=== PATIENT | male | born 1930 | race African-American/Black ===

== ENCOUNTER 2017-07-11 15:39 | Inpatient (IN) | payer OTHER ==
[2017-07-11 16:46] LABS: Absolute Lymphocytes (CBC) 0.5 K/uL (0.7-4.9); Absolute Monocytes 1.8 K/uL (0.1-1.3); Basophils % 0.4 % (0-1.3); Eosinophils % 1.4 % (0-4.4); Hematocrit 37.6 % (39.6-49.0); Lymphocytes % 4.2 % (15.3-44.8); MPV 8.2 fL (7.6-11.3); Monocytes % 14.7 % (3.3-12.3); RBC Red Blood Cell Count 4.18 M/uL (4.33-5.43)
[2017-07-11 16:47] LABS: Protime INR 1.11
[2017-07-11 17:04] LABS: Bicarbonate 28 mEq/L (21-31); Glucose Level 135 mg/dL (65-120); Potassium 3.6 mEq/L (3.6-5.0); Sodium Level 137 mEq/L (135-145)
--- NOTE | 2017-07-11 17:05 | RAD REPORT ---
EXAM DESCRIPTION: RAD - Chest Single View - 07/11/2017 4:56 pm CLINICAL HISTORY: Shortness of breath COMPARISON: None. FINDINGS: Portable technique limits examination quality. Mild to moderate pulmonary edema. The heart is mildly to moderately enlarged in size with a dual lead pacer device present. Right-sided venous catheter is noted. No displaced fractures. IMPRESSION: Mild to moderate CHF versus volume overload.
[2017-07-11 17:09] LABS: AST/SGOT 24 IU/L (10-42); Albumin 4.1 g/dL (3.2-5.5); Alkaline Phosphatase 62 IU/L (42-121); BUN Blood Urea Nitrogen 16 mg/dL (6-20); Bilirubin Direct 0.2 mg/dL (0-0.2); Bilirubin Total 0.4 mg/dL (0.3-1.2); Creatine Phosphokinase 63 IU/L (22-269); Glomerular Filtration Rate 20 mL/min (=/>90); Protein, Total 8.4 g/dL (6.0-8.3)
[2017-07-11 17:12] LABS: CKMB Creatine Kinase MB 1.9 ng/ml (0.3-4.0)
[2017-07-11 17:18] LABS: ALT/SGPT < 5 IU/L (10-60)
[2017-07-11] MEDS ORDERED: ONDANSETRON 4 MG/2 ML VIAL ONE (18:39)
[2017-07-11 18:44] LABS: Arterial Blood Carboxyhemoglob 0.8 % (0-1.5); Blood O2 Saturation 87.2 % (92-98.5)
--- NOTE | 2017-07-11 18:47 | ER ---
Nurse's Notes [facility] Name: Rik Mauro Age: 87 yrs Sex: Male : 1930 Arrival Date: 07/11/2017 Time: 15:45 Bed 3 Private MD: Diagnosis: Pulmonary edema;End stage renal disease Presentation: 07/11 15:45 Presenting complaint: EMS states: pt coming from dialysis, hasn't had in several days, kt1 unknown number. C/O SOB while at dialysis and copious amounts of diarrhea. Pt denies previous illness, no pain. Transition of care: dialysis center. Onset of symptoms was July 11, 2017. Note EMS states pt was 68% on RA, was up to 94% on 15L neb mask, A\T\A received. Care prior to arrival: Oxygen administered. via a nebulizer mask. 15:45 Method Of Arrival: EMS: [facility] kt1 15:45 Acuity: CHAVA 2 kt1 Triage Assessment: 15:45 General: Appears uncomfortable, unkempt, Behavior is calm, cooperative. Pain: Denies kt1 pain. Neuro: Level of Consciousness is awake, alert, obeys commands, Oriented to person, place, time, situation. Cardiovascular: Denies chest pain, Heart tones S1 S2. Respiratory: Reports shortness of breath labored breathing Airway is patent Respiratory effort is even, labored, Respiratory pattern is regular, symmetrical, tachypnea Breath sounds with rhonchi bilaterally. Onset: The symptoms/episode began/occurred today, the patient has moderate shortness of breath. GI: Abdomen is round non-distended, Bowel sounds hyperactive in right upper quadrant, left upper quadrant, right lower quadrant and left lower quadrant Reports diarrhea. Derm: Skin is fragile, is thin, with poor turgor Skin is dry, Skin is normal, black, Skin temperature is warm. Historical: - Allergies: 16:41 No Known Allergies; kt1 - Home Meds: 17:17 amlodipine 10 mg tab 1 tab once daily [Active]; magnesium oxide 400 mg Oral cap kt1 [Active]; carvedilol 25 mg oral tab 1 tab 2 times per day [Active]; citalopram 10 mg tab 1 tab once daily [Active]; metolazone 5 mg oral tab 1 tab once daily [Active]; - PMHx: 17:17 Anemia; Bradycardia; Prostate cancer 1990; Cataracts; CHF; DVT; Edema; Hypertension; kt1 Gout; 17:23 ESRD; kt1 - PSHx: 17:17 Dialysis cath R chest; kt1 - Social history:: The patient lives in a shelter. Screenin:45 Abuse screen: Denies threats or abuse. Nutritional screening: No deficits noted. kt1 Tuberculosis screening: No symptoms or risk factors identified. Fall Risk None identified. Assessment: 15:45 General: see triage assessment. kt1 16:55 Reassessment: Patient appears in no apparent distress at this time. Patient and/or kt1 family updated on plan of care and expected duration. Pain level reassessed. Patient is alert, oriented x 3, equal unlabored respirations, skin warm/dry/pink. Patient states feeling better. Patient states symptoms have improved. 18:00 Reassessment: Patient appears in no apparent distress at this time. No changes from kt1 previously documented assessment. Patient and/or family updated on plan of care and expected duration. Pain level reassessed. Patient is alert, oriented x 3, equal unlabored respirations, skin warm/dry/pink. 18:40 Reassessment: pt reports nausea, dry heaving. Order rec'd to give zofran. kt1 19:30 Reassessment: Patient appears in no apparent distress at this time. Patient and/or aa1 family updated on plan of care and expected duration. Pain level reassessed. Patient is alert, oriented x 3, equal unlabored respirations, skin warm/dry/pink. Awaiting bed assignment. 20:38 Reassessment: Patient appears in no apparent distress at this time. Patient and/or aa1 family updated on plan of care and expected duration. Pain level reassessed. Patient is alert, oriented x 3, equal unlabored respirations, skin warm/dry/pink. Awaiting admission to floor. 21:10 Reassessment: Patient appears in no apparent distress at this time. Patient and/or aa1 family updated on plan of care and expected duration. Pain level reassessed. Patient is alert, oriented x 3, equal unlabored respirations, skin warm/dry/pink. Attempted to call report to floor, was told nurse is unavailable and will call back. 21:30 Reassessment: Report given to Tana on 4th floor. aa1 Vital Signs: 15:45 BP 138 / 71; Pulse 81; Resp 24; Pulse Ox 73% on R/A; Pain 0/10; kt1 15:50 Temp 98.0(O); kt1 16:41 Pulse Ox 93% on 15% Non-rebreather mask; kt1 18:05 BP 171 / 77; Pulse 90; Resp 22; Pulse Ox 93% on 15% Non-rebreather mask; Pain 0/10; kt1 19:30 BP 160 / 60; Pulse 100; Resp 22; Pulse Ox 100% on 100% Non-rebreather mask; aa1 20:33 BP 106 / 54; Pulse 93; Resp 20; Temp 98.7; Pulse Ox 100% on 70% Non-rebreather mask; aa1 21:30 BP 104 / 74; Pulse 100; Resp 22; Pulse Ox 100% on 70% Non-rebreather mask; Pain 0/10; aa1 ED Course: 15:45 Patient arrived in ED. iw 15:45 Arm band placed on right wrist. Patient placed in an exam room, on a stretcher, on kt1 oxygen, on lunchroom monitor, on pulse oximetry. 15:45 Placed in gown. Bed in low position. Call light in reach. Side rails up X2. kt1 15:49 Oscar Fritz MD is Attending Physician. tw4 15:55 Inserted saline lock: 18 gauge in right antecubital area, using aseptic technique. kt1 ,using aseptic technique. via dynamic ultrasound guidance Blood collected. Missed attempt(s): 22 gauge in right antecubital area. 24 gauge in right forearm. Bleeding controlled, band aid applied, catheter tip intact. 16:37 Triage completed. kt1 16:41 X-ray completed. Portable x-ray completed in exam room. Patient tolerated procedure ml well. 16:42 XRAY Chest (1 view) In Process Unspecified. EDMS 18:44 Olesya Gerard, MALI is Primary Nurse. iw 18:45 Roberth Campos MD is Hospitalizing Provider. tw4 19:24 Primary Nurse role handed off by Olesya Gerard, RN rg2 20:39 No provider procedures requiring assistance completed. Patient admitted, IV remains in aa1 place. Administered Medications: 18:40 Drug: Zofran 4 mg Route: IVP; Site: right antecubital; kt1 19:30 Follow up: Response: No adverse reaction; Nausea is decreased aa1 Outcome: 18:46 Decision to Hospitalize by Provider. tw4 22:02 Admitted to Tele accompanied by tech, via stretcher, room 410, with oxygen, with chart, aa1 Report called to Tana 22:02 Condition: stable 22:02 Discharge instructions given to patient, Instructed on the need for admit, Demonstrated understanding of instructions. 22:05 Patient left the ED. aa1 Signatures: Dispatcher [employer] EDWan Rodriguez2 Chantale Gutierres, RN RN aa1 Jojo Montana, RN Leighann Bell Krysta, RN RN kt1 Oscar Fritz MD MD tw4
--- NOTE | 2017-07-11 22:06 | EDPHYS ---
Physician Documentation [facility] Name: Rik Mauro Age: 87 yrs Sex: Male : 1930 Arrival Date: 07/11/2017 Time: 15:45 Bed 3 Private MD: ED Physician Oscar Fritz HPI: 07/11 18:11 This 87 yrs old Black Male presents to ER via EMS with complaints of Shortness Of tw4 Breath. 18:11 The patient has shortness of breath at rest. Onset: The symptoms/episode began/occurred tw4 today. Duration: The symptoms are continuous, and are unchanged since they started. The patient's shortness of breath has no apparent modifying factors. Associated signs and symptoms: The patient has no apparent associated signs or symptoms. Severity of symptoms: At their worst the symptoms were moderate in the emergency department the symptoms are unchanged. The patient has not experienced similar symptoms in the past. Historical: - Allergies: 16:41 No Known Allergies; kt1 - Home Meds: 17:17 amlodipine 10 mg tab 1 tab once daily [Active]; magnesium oxide 400 mg Oral cap kt1 [Active]; carvedilol 25 mg oral tab 1 tab 2 times per day [Active]; citalopram 10 mg tab 1 tab once daily [Active]; metolazone 5 mg oral tab 1 tab once daily [Active]; - PMHx: 17:17 Anemia; Bradycardia; Prostate cancer 1989; Cataracts; CHF; DVT; Edema; Hypertension; kt1 Gout; 17:23 ESRD; kt1 - PSHx: 17:17 Dialysis cath R chest; kt1 - Social history:: The patient lives in a detention. ROS: 18:11 Constitutional: Negative for fever, chills, and weight loss, Eyes: Negative for injury, tw4 pain, redness, and discharge, Cardiovascular: Negative for chest pain, palpitations, and edema, Abdomen/GI: Negative for abdominal pain, nausea, vomiting, diarrhea, and constipation, Back: Negative for injury and pain, MS/Extremity: Negative for injury and deformity, Neuro: Negative for headache, weakness, numbness, tingling, and seizure. 18:11 Respiratory: Positive for shortness of breath. Exam: 18:11 Head/Face: Normocephalic, atraumatic. Chest/axilla: Normal chest wall appearance and tw4 motion. Nontender with no deformity. No lesions are appreciated. 18:11 Neck: Trachea midline, no thyromegaly or masses palpated, and no cervical lymphadenopathy. Supple, full range of motion without nuchal rigidity, or vertebral point tenderness. No Meningismus. 18:11 Constitutional: The patient appears alert, awake, diaphoretic, obviously ill. 18:11 Neck: 18:11 Cardiovascular: JVD: is noted bilaterally. 18:11 Respiratory: mild respiratory distress is noted, Respirations: Breath sounds: rales, are located in both bases. 18:55 ECG was reviewed by the Attending Physician. tw4 Vital Signs: 15:45 BP 138 / 71; Pulse 81; Resp 24; Pulse Ox 73% on R/A; Pain 0/10; kt1 15:50 Temp 98.0(O); kt1 16:41 Pulse Ox 93% on 15% Non-rebreather mask; kt1 18:05 BP 171 / 77; Pulse 90; Resp 22; Pulse Ox 93% on 15% Non-rebreather mask; Pain 0/10; kt1 19:30 BP 160 / 60; Pulse 100; Resp 22; Pulse Ox 100% on 100% Non-rebreather mask; aa1 20:33 BP 106 / 54; Pulse 93; Resp 20; Temp 98.7; Pulse Ox 100% on 70% Non-rebreather mask; aa1 21:30 BP 104 / 74; Pulse 100; Resp 22; Pulse Ox 100% on 70% Non-rebreather mask; Pain 0/10; aa1 MDM: 15:49 Patient medically screened. tw4 18:14 Differential diagnosis: Anemia reactive airway disease. Data reviewed: vital signs, tw4 nurses notes. Counseling: I had a detailed discussion with the patient and/or guardian regarding: the historical points, exam findings, and any diagnostic results supporting the discharge/admit diagnosis, lab results. 07/11 15:53 Order name: Basic Metabolic Panel tw4 07/11 15:53 Order name: BNP; Complete Time: 17:27 tw4 07/11 15:53 Order name: CBC with Diff; Complete Time: 17:27 tw4 07/11 15:53 Order name: Ckmb; Complete Time: 17:27 tw4 07/11 15:53 Order name: CPK; Complete Time: 17:27 tw4 07/11 15:53 Order name: LFT's 07/11 15:53 Order name: Magnesium; Complete Time: 17:27 4 07/11 15:53 Order name: PT-INR; Complete Time: 17:27 tw4 07/11 15:53 Order name: Ptt, Activated; Complete Time: 17:27 tw4 07/11 15:53 Order name: Troponin (emerg Dept Use Only); Complete Time: 17:27 tw4 07/11 15:53 Order name: XRAY Chest (1 view); Complete Time: 17:27 tw4 07/11 15:54 Order name: Basic Metabolic Panel; Complete Time: 17:27 EDMS 07/11 15:54 Order name: Liver (Hepatic) Function; Complete Time: 17:27 EDMS 07/11 18:24 Order name: ABG 07/11 15:53 Order name: EKG; Complete Time: 15:54 07/11 15:53 Order name: Cardiac monitoring; Complete Time: 18:03 07/11 15:53 Order name: EKG - Nurse/Tech; Complete Time: 18:04 07/11 15:53 Order name: IV Saline Lock; Complete Time: 18:04 07/11 15:53 Order name: Labs collected and sent; Complete Time: 18:04 07/11 15:53 Order name: O2 Per Protocol; Complete Time: 18:04 07/11 15:53 Order name: O2 Sat Monitoring; Complete Time: 18:04 tw4 EC:55 Rate is 79 beats/min. Rhythm is regular. QRS [place] is Normal. ME interval is normal. QRS tw4 interval is prolonged. QT interval is prolonged. T waves are Peaked in leads II, III, aVF, V3, V4, V5, V6. No ST changes noted. Clinical impression: Abnormal EKG without significant change. Interpreted by me. Reviewed by me. Administered Medications: 18:40 Drug: Zofran 4 mg Route: IVP; Site: right antecubital; kt1 19:30 Follow up: Response: No adverse reaction; Nausea is decreased aa1 Disposition: 07/11/17 18:46 Hospitalization ordered by Roberth Campos for Inpatient Admission. Preliminary diagnosis are Pulmonary edema, End stage renal disease. - Bed requested for Telemetry/MedSurg (Inpatient). - Status is Inpatient Admission. aa1 - Condition is Fair. - Problem is an ongoing problem. - Symptoms are unchanged. UTI on Admission? No Signatures: Dispatcher [employer] EDMS Nadege Payne, RN Chantale Villa RN RN aa1 Olesya Gerard RN RN kt1 Oscar Fritz MD MD tw4 Corrections: (The following items were deleted from the chart) 22:04 15:53 Urine Dipstick-Ancillary ordered. tw4 aa1
[2017-07-11] MEDS ORDERED: ONDANSETRON 4 MG/2 ML VIAL IV PRN (22:26)
--- NOTE | 2017-07-12 05:32 | P.HP ---
Certification for Inpatient Patient admitted to: Inpatient With expected LOS: >2 Midnights Practitioner: I am a practitioner with admitting privileges, knowledge of patient current condition, hospital course, and medical plan of care. Services: Services provided to patient in accordance with Admission requirements found in Title 42 Section 412.3 of the Code of Federal Regulations Patient History Date of Service: 07/11/17 Reason for admission: acute respiratory failure History of Present Illness: Mr Mauro is an 87 years old male with history of ESRD on HD, HTN, who came to ED complaining of SOB. The patient was doing HD today, after miss several sessions for no clear reason since the patient is poor historian, where he was found to be on respiratory distress. No history of fever, chills or cough. He denied chest pain as well. The patient has had diarrhea as well. 911 was called from dialysis center. When EMT arrived, found the patient dyspneic, with O2 Sat 68% on RA. After oxygen support 15L, O2 sat increased up to 94%. In ED he had leukocytosis, was afebrile. CXR report mild CHF. ABG shows PH 7028, PCO2 55.7 PO2 59.9. Allergies No Known Allergies Allergy (Verified 06/19/17 16:51) Home Medications: Amlodipine Besylate 10 mg PO DAILY 03/08/15 Citalopram Hydrobromide [Citalopram HBr] 1 tab PO DAILY 03/08/15 Docusate Sodium [Stool Softener] 100 mg PO DAILY PRN 03/08/15 Carvedilol 25 mg PO BID 02/22/16 Magnesium Oxide [Mag 0X Tab] 400 mg PO DAILY 08/08/16 Acetaminophen 650 mg PO Q4HP PRN 07/11/17 Metolazone [Zaroxolyn] 5 mg PO DAILY 07/11/17 - Past Medical/Surgical History -: ESRD on HD -: HTN -: anemia -: Hx of prostate cancer -: Dialysis catheter placement - Family History Family History: Reviewed- Non-Contributory - Social History Smoking Status: Unknown if ever smoked Alcohol use: No CD- Drugs: No Place of Residence: Detention Review of Systems 10-point ROS is otherwise unremarkable Physical Examination - Vital Signs Temperature: 97.4 F Blood Pressure: 108/53 Pulse: 94 Respirations: 14 Pulse Ox (%): 94 - Physical Exam General: Alert, In no apparent distress HEENT: Atraumatic, PERRLA, Mucous membr. moist/pink, EOMI, Sclerae nonicteric Neck: Supple, 2+ carotid pulse no bruit, No LAD, JVD distended Respiratory: Diminished, Crackles/rales (bibasilar rales) Cardiovascular: Normal S1 S2, No gallops Gastrointestinal: Normal bowel sounds, No tenderness Musculoskeletal: No tenderness Integumentary: No rashes Neurological: Normal strength at 5/5 x4 extr, Normal tone, Normal affect Lymphatics: No axilla or inguinal lymphadenopathy - Studies Laboratory Data (last 24 hrs) 07/11/17 16:30: PT 13.1 H, INR 1.11, APTT 29.8 07/11/17 16:30: WBC 12.6 H, Hgb 12.1 L D, Hct 37.6 L D, Plt Count 156 07/11/17 16:30: B-Natriuretic Peptide 126 H 07/11/17 16:30: Sodium 137, Potassium 3.6, BUN 16, Creatinine 3.57 H, Glucose 135 H, Magnesium 2.0, Total Bilirubin 0.4, AST 24, ALT < 5 L, Alkaline Phosphatase 62 Assessment and Plan - Problems (Diagnosis) (1) ESRD on hemodialysis Current Visit: Yes Status: Acute (2) HTN (hypertension) Current Visit: Yes Status: Acute Qualifiers: Hypertension type: essential hypertension Qualified Code(s): I10 - Essential (primary) hypertension (3) Acute respiratory failure Current Visit: Yes Status: Acute Qualifiers: Respiratory failure complication: hypoxia and hypercapnia Qualified Code(s) : J96.01 - Acute respiratory failure with hypoxia; J96.02 - Acute respiratory failure with hypercapnia; J96.02 - Acute respiratory failure with hypercapnia; J96.02 - Acute respiratory failure with hypercapnia (4) CHF (congestive heart failure) Current Visit: Yes Status: Acute Qualifiers: Heart failure type: unspecified Heart failure chronicity: acute Qualified Code(s): I50.9 - Heart failure, unspecified - Plan The patient will be admitted to the hospital due to acute respiratory failure secondary to CHF in context for missing HD sessions. Will consult Dr Almaraz for HD orders, replace electrolytes per protocol, continue BiPAP. C.Diff screening pending for diarrhea. - Advance Directives Does patient have a Living Will: No Does patient have a Durable POA for Healthcare: No - Code Status/Comfort Care Code Status Assessed: Yes Code Status: Full Code
[2017-07-12 05:52] LABS: Absolute Lymphocytes (CBC) 0.8 K/uL (0.7-4.9); Absolute Monocytes 1.8 K/uL (0.1-1.3); Absolute Neutrophil 14.1 K/uL (1.8-8.0); Basophils % 0.5 % (0-1.3); Eosinophils % 0.1 % (0-4.4); Hematocrit 38.1 % (39.6-49.0); MCH 28.7 pg (27.0-35.0); MCV 90.9 fL (80-100); MPV 8.5 fL (7.6-11.3); Monocytes % 10.5 % (3.3-12.3); RBC Red Blood Cell Count 4.19 M/uL (4.33-5.43)
[2017-07-12 05:59] LABS: AST/SGOT 30 IU/L (10-42); Albumin 3.6 g/dL (3.2-5.5); Alkaline Phosphatase 50 IU/L (42-121); BUN Blood Urea Nitrogen 25 mg/dL (6-20); Bicarbonate 21 mEq/L (21-31); Bilirubin Total 0.7 mg/dL (0.3-1.2); Glomerular Filtration Rate 14 mL/min (=/>90); Glucose Level 119 mg/dL (65-120); Potassium 3.9 mEq/L (3.6-5.0); Protein, Total 7.4 g/dL (6.0-8.3); Sodium Level 137 mEq/L (135-145)
[2017-07-12 06:06] LABS: ALT/SGPT < 5 IU/L (10-60)
[2017-07-12 06:24] LABS: Blood Morphology Comment NOT SEEN (NOT SEEN); Platelet Estimate DECR
--- NOTE | 2017-07-12 07:05 | EKG ---
Test Date: 2017-07-11 Test Time: 15:48:49 Residential Counselor: TOM MEASUREMENT RESULTS: Intervals: Rate: 79 MN: 126 QRSD: 182 QT: 502 QTc: 575 [place]: P: 87 MN: 126 QRS: -80 T: 99 INTERPRETIVE STATEMENTS: Atrial-sensed ventricular-paced rhythm Abnormal ECG No previous ECG available for comparison Electronically Signed On 07-12-17 07:03:49 PURCHASING SPECIALIST by Hernán Ewing
[2017-07-12] MEDS ORDERED: ENOXAPARIN 40 MG/0.4 ML SQ SCH (09:00)
[2017-07-12] MEDS: CITALOPRAM 10 MG TABLET PO SCH (10:43)
[2017-07-12] MEDS: MAGNESIUM OXIDE 400 MG TAB PO SCH (10:43)
[2017-07-12] MEDS: METOLAZONE 5 MG TABLET PO SCH (10:43)
[2017-07-12] MEDS ORDERED: DOCUSATE NA 100 MG CAP PO PRN (11:00)
--- NOTE | 2017-07-12 13:57 | PN ---
Date of Progress Note: 07/12/2017 Subjective: The patient seen and examined. Chart reviewed and case discussed with RN. The patient denies any significant pain. Does report some shortness of breath. Review of Systems: Negative except as above. Medications: Reviewed. Physical Examination: Vital Signs: Temperature 98.6, heart rate 80, blood pressure 140/74, respirations 18, and O2 93% on non-rebreather. General: Awake, alert, oriented x2, elderly male, ill-appearing. CV: S1, S2. Peripheral pulses present. Respiratory: Diminished breath sounds. No wheezing. Abdomen: Soft, nontender, nondistended. Positive bowel sounds. Extremities: No clubbing, cyanosis. Trace pedal edema. Laboratory Data: Sodium 137, potassium 3.9, chloride 102, CO2 21, BUN 25, creatinine 4.88, glucose 1 19, and calcium 8.9. Troponin 0.11. WBC 16.7, H and H 12, 38.1, platelets 140, neutrophils 83.9, an d bands 33%. Assessment And Plan: An 87-year-old male with; 1.Acute respiratory failure with hypoxia and hypercapnia, currently on non-rebreather mask secondary to volume overload from end-stage renal disease and incomplete dialysis. 2.Acute congestive heart failure, unknown ejection fraction. 3.Essential hypertension. 4.End-stage renal disease, on hemodialysis. Nephrology has been consulted. We will continue on hem odialysis. Appreciate Dr. Almaraz's input. 5.Diarrhea. We will screen for Clostridium difficile. We will place on prophylactic antibiotics. 6.Gastrointestinal and deep venous thrombosis prophylaxis with PPI and Lovenox. 7.Bandemia, unclear source of infection, possibly diarrhea with Clostridium difficile. We will foll ow up on stool cultures. We will check procalcitonin and lactate level. 8.Elevated troponin level. We will consult Cardiology, likely related to acute renal disease and de kae ischemia. SA/MODL Voice ID: [id number] Report ID: [id number]
[2017-07-12] MEDS: metroNIDAZOLE 500 MG TABLET PO SCH ×2 (14:57→20:40)
[2017-07-12] MEDS ORDERED: VANCOMYCIN 1 GM in NA CHLORIDE 0.9% 500 ML IVPB SCH (15:00)
[2017-07-12] MEDS ORDERED: VANCOMYCIN 500 MG in NA CHLORIDE 0.9% 100 ML IVPB SCH (15:15)
[2017-07-12 15:30] LABS: Arterial Blood Carboxyhemoglob 1.6 % (0-1.5)
[2017-07-12] MEDS ORDERED: VANCOMYCIN/NS 1 gm 1 GM/250 ML BAG IV SCH (16:00)
--- NOTE | 2017-07-12 17:26 | ECHO ---
HEIGHT: 5 ft 6 in WEIGHT: 157 lb 0 oz DATE OF STUDY: 07/12/[address]: Misty Austin MD 2-DIMENSIONAL: YES M.MODE: YES DOPPLER: YES COLOR FLOW: YES TDS: NO PORTABLE: NO DEFINITY: NO BUBBLE STUDY: NO DIAGNOSIS: CONGESTIVE HEART FAILURE CARDIAC HISTORY: CATHERIZATION: NO SURGERY: NO PROSTHETIC VALVE: NO PACEMAKER: YES MEASUREMENTS (cm) DIASTOLIC (NORMALS) SYSTOLIC (NORMALS) IVSd 1.5 (0.6-1.2) LA Diam 4.7 (1.9-4.0) LVEF 61% LVIDd 4.3 (3.5-5.7) LVIDs 2.9 (2.0-3.5) %FS 32% LVPWd 1.3 (0.6-1.2) Ao Diam 3.5 (2.0-3.7) 2 DIMENSIONAL ASSESSMENT: RIGHT ATRIUM: NORMAL LEFT ATRIUM: DILATED RIGHT VENTRICLE: NORMAL LEFT VENTRICLE: LEFT VENTRICULAR HYPERTROPHY TRICUSPID VALVE: NORMAL MITRAL VALVE: NORMAL PULMONIC VALVE: NORMAL AORTIC VALVE: SCLEROSIS PERICARDIAL EFFUSION: TRACE AORTIC ROOT: NORMAL LEFT VENTRICULAR WALL MOTION: NORMAL. DOPPLER/COLOR FLOW: MILD TRICUSPID REGURGITATION. NORMAL RIGHT VENTRICULAR SYSTOLIC PRESSURE. COMMENTS: NORMAL EJECTION FRACTION. DIASTOLIC DYSFUNCTION. LEFT VENTRICULAR HYPERTROPHY. LEFT ATRIAL ENLARGEMENT. AORTIC SCLEROSIS NO STENOSIS. MILD TRICUSPID REGURGITATION. TRACE EFFUSION. TECHNOLOGIST: HERIBERTO TERRELL [facility]
[2017-07-12] MEDS ORDERED: NA CHLORIDE 0.9% 1,000 ML IV PRN (20:29)
[2017-07-12] MEDS ORDERED: MANNITOL 25% 12.5 GM/50 ML VIAL IV PRN (20:29)
[2017-07-12] MEDS ORDERED: ALBUMIN HUMAN 25% 50 ML IV SCH (21:00)
[2017-07-12] MEDS: CARVEDILOL 25 MG TAB PO SCH (21:00)
--- NOTE | 2017-07-12 23:03 | CON ---
Date of Consultation: 07/12/2017 Chief Complaint: End-stage renal disease, fluid overload, and shortness of breath. History Of Present Illness: The patient presented to the hospital because of generalized weakness. Chest x-ray showed [id number] congestive heart failure with some volume overload. The patient is admitted to the hospital and is on O2 nasal cannula. Chest x-ray showed [id number] pulmonary edema. Heart is moderately enlarged. The patient remains lethargic, cannot provide review of systems. The patient recently was initiated on dialysis. He is an 87 -year-old man with history of end-stage renal disease, hypertension. He denies history of fever, chills, or cough. The patient apparently had diarrhea recently. ABG showed pCO2 retention and hypoxemia. Review of Systems: Constitutional: The patient is lethargic, cannot provide review of systems. He denies complaints. Denies fever, chills. Eyes: Denies vision changes. Ears, Nose, Mouth, and Throat: Denies sore throat or earache. Respiratory: Has shortness of breath. Denies hemoptysis. GI: Denies nausea, vomiting. : Denies dysuria, hematuria. Extremities: Denies muscle aches or joint swelling, although he has leg edema. all other systems reviewed and all are negative Past Medical History: End-stage renal disease, on dialysis; hypertension; anemia; CKD; renal osteodystrophy; dialysis catheter placement; prostate cancer. Family History: No kidney disease in the family. Social History: Denies tobacco, alcohol, or illicit drugs. Physical Examination: Vital Signs: Blood pressure is 108/53, heart rate 94, respiratory rate 14, SpO2 94%, temperature 97.4. Eyes: Anicteric sclerae. EOMI. No pallor. Ears, Nose, Mouth, and Throat: Oral mucosa moist. Neck: Supple. No JVD. No bruits. Lungs: Crackles bilaterally present. Heart: S1, S2. No pericardial friction rub. Abdomen: Soft, benign, nontender. Extremities: Edema present in both legs. Neurologic: Moving extremities. Cranial nerves intact. Laboratory Data: WBC 12.6, hemoglobin 12.1, hematocrit 37.6, platelet count is 156,000. PT 14.1, INR 1.11, PTT 29.8. BNP is 126. Sodium 137, potassium 3.6, BUN 16, creatinine 3.57, glucose 145, magnesium 2.0. Impression And Plan: End-stage renal disease, on dialysis; fluid overload; congestive heart failure; pulmonary edema. The patient will resume dialysis with ultrafiltration to obtain negative fluid balance. Hypoxemia, hypercarbia; the patient may benefit from BiPAP. Monitor ABG and start BiPAP for congestive heart failure with pulmonary edema. The patient will need to resume dialysis and likely he will have dialysis daily. Congestive heart failure acute on chronic with severe exacerbation associated with hypoxemia and fluid overload , ultrafiltration with dialysis will be done as tolerated to control severe fluid overload, cardiac work-up will be done to rule out acute myocardial infarction and scree fro bacteriemia to rule out endocarditis. Severe fluid overload , continue low sodium diet and po fluid restriction. Hypertension, monitor BP during dialysis and adjust ultrafiltration goal to prevent intradialytic hypotension. Leukocytosis, blood culture recommended to rule bacteremia, screen for UTI and continue antibiotics of broad spectrum with renally adjusted dosage. JELANI/ASHLEY Voice ID: [id number] Report ID: [id number]
[2017-07-12] MEDS ORDERED: VANCOMYCIN 500 MG/VIAL ONE (23:19)
[2017-07-12] MEDS ORDERED: NA CHLORIDE 0.9% 100 ML ONE (23:20)
[2017-07-13 06:20] LABS: Absolute Lymphocytes (CBC) 0.5 K/uL (0.7-4.9); Absolute Monocytes 1.2 K/uL (0.1-1.3); Absolute Neutrophil 5.8 K/uL (1.8-8.0); Basophils % 0.3 % (0-1.3); Hematocrit 31.3 % (39.6-49.0); Lymphocytes % 6.1 % (15.3-44.8); MCH 28.7 pg (27.0-35.0); MCV 90.4 fL (80-100); MPV 8.8 fL (7.6-11.3); RBC Red Blood Cell Count 3.46 M/uL (4.33-5.43)
[2017-07-13 06:21] LABS: Monocytes % 15.7 % (3.3-12.3)
[2017-07-13 06:58] LABS: AST/SGOT 27 IU/L (10-42); Albumin 2.8 g/dL (3.2-5.5); Alkaline Phosphatase 45 IU/L (42-121); BUN Blood Urea Nitrogen 18 mg/dL (6-20); Bicarbonate 30 mEq/L (21-31); Bilirubin Total 0.6 mg/dL (0.3-1.2); Glomerular Filtration Rate 20 mL/min (=/>90); Glucose Level 93 mg/dL (65-120); Potassium 3.8 mEq/L (3.6-5.0); Protein, Total 6.1 g/dL (6.0-8.3); Sodium Level 142 mEq/L (135-145)
[2017-07-13 06:59] LABS: ALT/SGPT < 5 IU/L (10-60)
[2017-07-13] MEDS: AMLODIPINE 10 MG TAB PO SCH (09:00)
[2017-07-13] MEDS: CARVEDILOL 25 MG TAB PO SCH ×2 (10:01→21:00)
[2017-07-13] MEDS: metroNIDAZOLE 500 MG TABLET PO SCH ×3 (10:01→22:21)
[2017-07-13] MEDS: CITALOPRAM 10 MG TABLET PO SCH (10:01)
[2017-07-13] MEDS: METOLAZONE 5 MG TABLET PO SCH (10:01)
[2017-07-13] MEDS: ENOXAPARIN 30 MG/0.3 ML SQ SCH (10:04)
[2017-07-13] MEDS: MAGNESIUM OXIDE 400 MG TAB PO SCH (10:04)
[2017-07-13] MEDS ORDERED: EPOETIN ALFA 10,000 UNIT/ML SQ SCH (11:00)
--- NOTE | 2017-07-13 11:53 | RAD REPORT ---
EXAM DESCRIPTION: RAD - Chest Single View - 07/13/2017 11:39 am CLINICAL HISTORY: Shortness of breath COMPARISON: July 11 TECHNIQUE: AP portable chest image was obtained 1129 hours . FINDINGS: Retrocardiac left base assessment is limited. There is some suggestion of increased opacif ication. Cardiomegaly is present similar to the comparison. Vasculature and lung markings overall are prominent. Left subclavian pacemaker and right-sided double-lumen dialysis catheter remain in place. Trachea is midline. No pneumothorax or large pleural effusion. No acute aortic findings suspected. IMPRESSION: CHF/volume overload pattern similar to comparison. More shallow inspiratory effort accen tuates the lung markings. Retrocardiac left base assessment is limited. A medial left base infiltrate cannot be excluded.
--- NOTE | 2017-07-13 12:16 | PN ---
Date of Progress Note: 07/13/2017 Subjective: The patient is seen and examined. Chart reviewed and case discussed with RN. The patient still having some loose stools. He otherwise denies any significant pain. The patient is eating and drinking. The patient going for hemodialysis today. Review of Systems: Negative except as above. Medications: Reviewed. Physical Examination: Vital Signs: Temperature 98, heart rate 76, blood pressure 108/47, respirations 20, O2 97% on 3.5 L via nasal cannula. General: Awake, alert, oriented x3, in no acute distress. Elderly male, somewhat ill-appearing. CV: S1, S2. No murmurs. Peripheral pulses present. Respiratory: Moving air well bilaterally. No wheezing. Abdomen: Soft, nontender, nondistended. Positive bowel sounds. Extremities: No clubbing, cyanosis, or edema. Neurologic: Nonfocal. Laboratory Data: Sodium 142, potassium 3.8, chloride 103, CO2 of 30. BUN 18, creatinine 3.5, glucose 93, calcium 9. Procalcitonin from 07/12/2017 is 53. Blood cultures pending. C. diff negative. Stool culture pending. Echocardiogram shows EF of 61%. Diastolic dysfunction is present. Left ventricular hypertrophy. Left atrial enlargement. Aortic sclerosis. No stenosis. Mild tricuspid regurg. Trace effusion. Assessment And Plan: An 87-year-old male with; 1. Acute respiratory failure with hypoxia and hypercapnia. The patient now weaned off to nasal cannula. Oxygenation is improving secondary to volume overload. 2. Acute congestive heart failure, ejection fraction 63%, diastolic dysfunction. We will continue congestive heart failure guidelines. 3. Essential hypertension, stable. 4. End-stage renal disease, on hemodialysis. Appreciate nephrology input. We will continue with dialysis as scheduled. 5. Diarrhea, improving. C. diff negative. 6. Bandemia, resolved. White count has normalized. Possible source of infection may be scrotal abrasions. The patient does have some scrotal erythema and abrasions likely from being dependent. 7. Elevated troponin level. Appreciate Dr. Ewing's input. Echocardiogram does not show wall motion abnormalities, likely secondary to acute renal dysfunction. 8. Hypertensive heart disease. Echo shows left ventricular hypertrophy. 9. Gastrointestinal and deep venous thrombosis prophylaxis with PPI and Lovenox. Plan: Continue IV antibiotics with dialysis. We will follow up on cultures. Of note, the patient recently had a heart catheterization done at outside facility and stated that there was no intervention with no stent placement. We will continue with physical therapy and discharge planning. GABINO Voice ID: [id number] Report ID: [id number] MTDD
--- NOTE | 2017-07-13 13:46 | PN ---
Date of Progress Note: 07/13/2017 Chief Complaint: Fluid overload, shortness of breath, hypoxemia. History Of Present Illness: Chest x-ray showed mild to moderate pulmonary edema. Heart was enlarged. The patient was lethargic and required oxygen supplementation. ABG showed pCO2 retention and hypoxemia. The patient came to the hospital because of generalized weakness. He was found to have acute on chronic congestive heart failure with diastolic dysfunction triggered by fluid overload. The patient received dialysis yesterday, ultrafiltration done yesterday, although goal was limited because of borderline hypotension. Today, blood pressure is 108/47. The patient is more alert today. Chest x-ray is pending to re-evaluate for evidence of improvement of pulmonary edema. The patient may need to have dialysis daily with pure ultrafiltration as well as dialysis with ultrafiltration to control volemia. Review of Systems: Denies fever or chills. Physical Examination: Lungs: Diminished breath sounds at the bases. Crackles present bilaterally. Heart: S1, S2. Abdomen: Soft, benign. Extremities: Some edema. Laboratory Data: Sodium 142, potassium 3.8, chloride 103, CO2 30, BUN 18, creatinine 3.5, calcium 9.0, albumin 2.8. Hemoglobin 9.9, WBC 7.5, platelet count is 1,32,000. Impression And Plan: 1. End-stage renal disease, fluid overload, congestive heart failure, hypoxemia, continue oxygenation. 2. Borderline hypotension. Ultrafiltration will be done to control fluid overload. The patient may need daily dialysis with lower goal of fluid removal to prevent intradialytic hypotension. 3. Anemia in chronic kidney disease. Hemoglobin is 9.9. Monitor and resume VISH. 4. Renal osteodystrophy. Continue renal diet and binders. I spent total 36 min including 26 min to coordinate care plan. JELANI/ASHLEY Voice ID: [id number] Report ID: [id number] ANAND
[2017-07-13] MEDS: ACETAMINOPHEN 500 MG TAB PO PRN ×2 (15:11→22:16)
[2017-07-13] MEDS ORDERED: MIDODRINE HCL 5 MG TABLET PO PRN (16:31)
[2017-07-13] MEDS: ALBUMIN HUMAN 25% 100 ML IV ONE ×2 (16:32→19:57)
[2017-07-13] MEDS: CEFEPIME/SWI 1gm 1 GM/10 ML SYR IV SCH ×2 (18:02→23:00)
--- NOTE | 2017-07-13 19:21 | PN ---
Date of Progress Note: 07/13/2017 Mr. Mauro was admitted on 07/11/2017, for acute exacerbation of chronic diastolic congestive heart fa ilure. He has end-stage renal disease with hemodialysis. I saw the patient initially on 07/12/2017. The patient continues to be on Flagyl, vancomycin, and hemodialysis. He is on Norvasc, Coreg, magn esium, metolazone as needed. He seems to be breathing better. He still have some shortness of breat h, trace edema. Telemetry remains normal rhythm. I do not recommend any change in therapy and I agr ee with the present regimen. I will sign off his case. I will be available for question. The patie nt is not a candidate for coronary artery intervention or invasive procedure. PAU/ASHLEY Voice ID: [id number] Report ID: [id number]
--- NOTE | 2017-07-13 20:36 | CON ---
Date of Consultation: 07/12/2017 Reason For Consultation: Congestive heart failure. History Of Present Illness: Mr. Mauro is an 87-year-old, black male, has a history of diastolic gregg estive heart failure, pacemaker, end-stage renal disease, on hemodialysis, anemia, chronic bradycardi a, history of DVT, and hypertension. He came in with congestive heart failure. Past Medical History: As stated earlier. Allergies: NONE. Review of Systems: Negative. Social History: Negative. Family History: Negative. Medication: At home include Norvasc, Coreg, magnesium and metolazone as needed. Physical Examination: General: Mr. Mauro appeared his stated age. He is thin. Vital Signs: Blood pressure was 171/77 on admission, when I saw him was 130/64. He is status post h emodialysis. His rhythm is paced rhythm. He had a 97% saturation on 4 L. HEENT: Negative. Neck: Supple without any bruit, lymphadenopathy, JVD, or thyromegaly. Chest: Positive for rales bilaterally. Cardiac Exam: Revealed a regular rhythm and rate with an S4 gallops. No murmurs or rubs. Abdomen: Benign. Extremities: No clubbing or cyanosis. He had trace edema. Diagnostic Data: His EKG showed LVH. Echocardiography has been done, showed decreased left ventricu lar compliance with an ejection fraction 67%. Chest x-ray showed CHF. Troponin was 0.11. BNP 126, procalcitonin was 53.57, white count of 17,000. Creatinine is 4.88. His blood gas showed a pO2 of 5 1, pCO2 of 44 and pH of 7.36. Impression And Plan: 1.Acute exacerbation of chronic diastolic congestive heart failure. The patient is on the metolazon e at home. He is on Coreg and Norvasc, appropriate therapy. He is getting hemodialysis. This is on ly way to really diurese him well. 2.He has an infection probably bronchitis maybe say UTI as well. He is on Flagyl and vancomycin. H e has elevated procalcitonin consistent with that. His white count is 17,000. 3.Elevated troponin secondary to renal failure and congestive heart failure. 4.Hypoxia. 5.End-stage renal disease, on hemodialysis. 6.History of pacemaker placement that seems to be functioning properly. 7.History of DVT in the past that has resolved. 8.Hypertension. 9.Chronic anemia. I agree with his present regimen. I do not have much to add to his therapy. Mr. Mauro is 87, feeble, on dialysis, poor functional status, not really a good candidate for coronar y intervention. I would continue the present regimen. I will be available for questions if the need be. PAU/ASHLEY Voice ID: [id number] Report ID: [id number]
[2017-07-14 06:38] LABS: Absolute Lymphocytes (CBC) 0.6 K/uL (0.7-4.9); Absolute Monocytes 0.9 K/uL (0.1-1.3); Absolute Neutrophil 5.4 K/uL (1.8-8.0); Basophils % 0.4 % (0-1.3); Eosinophils % 2.8 % (0-4.4); Hematocrit 28.6 % (39.6-49.0); Lymphocytes % 8.3 % (15.3-44.8); MCH 28.7 pg (27.0-35.0); MCV 90.8 fL (80-100); MPV 9.1 fL (7.6-11.3); Monocytes % 12.1 % (3.3-12.3); RBC Red Blood Cell Count 3.15 M/uL (4.33-5.43)
[2017-07-14 07:01] LABS: AST/SGOT 29 IU/L (10-42); Albumin 3.2 g/dL (3.2-5.5); Alkaline Phosphatase 48 IU/L (42-121); BUN Blood Urea Nitrogen 36 mg/dL (6-20); Bicarbonate 29 mEq/L (21-31); Bilirubin Total 0.6 mg/dL (0.3-1.2); Glomerular Filtration Rate 13 mL/min (=/>90); Glucose Level 103 mg/dL (65-120); Protein, Total 6.4 g/dL (6.0-8.3); Sodium Level 138 mEq/L (135-145)
[2017-07-14 07:02] LABS: ALT/SGPT < 5 IU/L (10-60)
[2017-07-14] MEDS: AMLODIPINE 10 MG TAB PO SCH (08:17)
[2017-07-14] MEDS: CARVEDILOL 25 MG TAB PO SCH (08:17)
[2017-07-14] MEDS: metroNIDAZOLE 500 MG TABLET PO SCH ×3 (08:41→21:57)
[2017-07-14] MEDS: METOLAZONE 5 MG TABLET PO SCH (08:41)
[2017-07-14] MEDS: ENOXAPARIN 30 MG/0.3 ML SQ SCH (08:42)
[2017-07-14] MEDS: MAGNESIUM OXIDE 400 MG TAB PO SCH (08:42)
[2017-07-14] MEDS: ACETAMINOPHEN 500 MG TAB PO PRN ×2 (08:42→14:48)
[2017-07-14] MEDS: CITALOPRAM 10 MG TABLET PO SCH (08:42)
[2017-07-14] MEDS: CEFEPIME/SWI 1gm 1 GM/10 ML SYR IV SCH (08:43)
[2017-07-14] MEDS ORDERED: CEFEPIME 1 GM/VIAL IV SCH (09:00)
--- NOTE | 2017-07-14 13:43 | RAD REPORT ---
EXAM DESCRIPTION: RAD - Chest Single View - 07/14/2017 1:31 pm CLINICAL HISTORY: CHF, shortness of breath COMPARISON: 07/13/2017 FINDINGS: Portable technique limits examination quality. Mild improvement in interstitial lung opacities since comparative study. Right-sided venous catheter has tip SVC. The heart is mildly moderately enlarged. Multilead pacer device is place. No displaced f ractures. IMPRESSION: Mild improvement in CHF.
--- NOTE | 2017-07-14 15:14 | PN ---
Date of Progress Note: 07/14/2017 Subjective: The patient seen and examined. Chart reviewed and case discussed with RN. The patient went for dialysis yesterday, did well. The patient states he is not feeling too well, has some generalized weakness. Review of Systems: Negative, except as above. Medications: Reviewed. Physical Examination: Vital Signs: Temperature 97.7, heart rate 60, blood pressure 115/54, respirations 18, O2 96% on 3 L via nasal cannula. General: Awake, alert, and oriented x3. Elderly male, somewhat ill-appearing. CV: S1, S2. Peripheral pulses present bilaterally. No murmurs. Respiratory: Moving air well bilaterally. No wheezing. Abdomen: Soft, nontender, nondistended. Positive bowel sounds. Extremities: No clubbing, cyanosis, or edema. Neurologic: Nonfocal. Integumentary: The patient does have some erythema and abrasions on his scrotum. Laboratory Data: Sodium 138, potassium 4, chloride 97, CO2 29, BUN 36, creatinine 5.2, glucose 103, calcium 9.2, procalcitonin 41.3. WBC 7, H and H 9 and 28.6, platelets 127, neutrophils 76.4%. Blood cultures no growth to date. Fecal leukocytes, no WBCs seen. Stool culture pending. Assessment And Plan: An 87-year-old male with; 1. Acute exacerbation of diastolic heart failure. Ejection fraction 63%. We will continue congestive heart failure guidelines. Appreciate Dr. Ewing's input. 2. Acute respiratory failure with hypoxia and hypercapnia. The patient now on nasal cannula. We will continue to wean as tolerated. The patient is not on oxygen at home secondary to volume overload. 3. Essential hypertension, stable. 4. End-stage renal disease, on hemodialysis. Appreciate Nephrology input. We will continue dialysis as scheduled. 5. Diarrhea, improving. Clostridium difficile is negative. Fecal leukocytes did not show any wbcs too. Cultures pending. 6. Bandemia, resolved. Continue IV Abx, f/up on cultures 7. Elevated troponin level secondary to acute renal issues and acute congestive heart failure. Appreciate Dr. Ewing's input. Echocardiogram reviewed. Not a good candidate for any acute cardiac intervention. 8. Scrotal abrasion. Continue IV antibiotics and wound care. 9. Hypertensive heart disease. 10. Gastrointestinal and deep venous thrombosis prophylaxis PPI and Lovenox. Plan: Continue PT, OT. Discharge planning likely discharge in next 24-48 hours if continues to improve. We will recheck procalcitonin in a.m. ADDENDUM: Blood culture prelim shows gram positive cocci. Pt is on Vanc after HD SA/MODL Voice ID: [id number] Report ID: [id number] MTD
[2017-07-14] MEDS ORDERED: MIDODRINE HCL 5 MG TABLET PO SCH (21:00)
[2017-07-14] MEDS: CARVEDILOL 6.25 MG TAB PO SCH (21:00)
--- NOTE | 2017-07-15 00:40 | PN ---
Date of Progress Note: 07/14/2017 Chief Complaint: End-stage renal disease, pulmonary edema, and pneumonia. Subjective: The patient received ultrafiltration yesterday. Fluid removal was titrated down because of borderline hypotension. The patient received IV albumin and midodrine for blood pressure support during dialysis to prevent intradialytic hypotension. Today, the patient was found to have borderli ne hypotension and Coreg was held. The patient previously was taking Norvasc and Coreg. I discontin ued Norvasc and decreased Coreg dose to 6.25 twice a day to prevent hypotension. The patient was sta rted on IV antibiotics and is receiving vancomycin and cefepime for possible pneumonia. Review of Systems: Denies fever or chills. Physical Examination: Lungs: Crackles bilaterally. Heart: S1, S2. Abdomen: Soft, benign. Extremities: No edema. Impression And Plan: 1.End-stage renal disease, congestive heart failure, hypoxemic respiratory failure. Continue oxygen ation. Ultrafiltration and dialysis will be scheduled for tomorrow. Continue IV antibiotics to kaden t pneumonia. 2.Hypertension. Adjust blood pressure medication. 3.Anemia in chronic kidney disease. Continue VISH. 4.Renal osteodystrophy. Continue renal diet and binders. EB/MODL Voice ID: [id number] Report ID: [id number]
[2017-07-15 04:39] LABS: Absolute Lymphocytes (CBC) 0.6 K/uL (0.7-4.9); Absolute Neutrophil 4.9 K/uL (1.8-8.0); Basophils % 0.4 % (0-1.3); Eosinophils % 3.1 % (0-4.4); Hematocrit 28.7 % (39.6-49.0); Lymphocytes % 9.5 % (15.3-44.8); MCH 28.6 pg (27.0-35.0); MCV 89.7 fL (80-100); MPV 8.5 fL (7.6-11.3); Monocytes % 14.5 % (3.3-12.3)
[2017-07-15 04:59] LABS: Bilirubin Total 0.5 mg/dL (0.3-1.2); Potassium 3.5 mEq/L (3.6-5.0); Protein, Total 6.5 g/dL (6.0-8.3)
[2017-07-15 05:28] LABS: Platelet Estimate DECR; Urine White Blood Cell Casts OK
[2017-07-15 05:29] LABS: Blood Morphology Comment NOT SEEN (NOT SEEN)
[2017-07-15] MEDS: ENOXAPARIN 30 MG/0.3 ML SQ SCH (08:41)
[2017-07-15] MEDS: METOLAZONE 5 MG TABLET PO SCH (08:41)
[2017-07-15] MEDS: CARVEDILOL 6.25 MG TAB PO SCH ×2 (08:42→23:51)
[2017-07-15] MEDS: CITALOPRAM 10 MG TABLET PO SCH (08:42)
[2017-07-15] MEDS: metroNIDAZOLE 500 MG TABLET PO SCH ×2 (08:42→12:49)
[2017-07-15] MEDS: MAGNESIUM OXIDE 400 MG TAB PO SCH (08:42)
[2017-07-15] MEDS: CEFEPIME/SWI 1gm 1 GM/10 ML SYR IV SCH (09:23)
[2017-07-15] MEDS: ACETAMINOPHEN 500 MG TAB PO PRN (12:46)
--- NOTE | 2017-07-15 16:54 | P.PN ---
Date of Service: 07/15/17 Subjective: The patient seen and examined. Chart reviewed and case discussed with RN. The patient went for dialysis yesterday, did well. Review of Systems: Negative, except as above. Medications: Reviewed. Physical Examination: Vital Signs: Reviewed General: Awake, alert, and oriented x3. Elderly male, somewhat ill-appearing. CV: S1, S2. Peripheral pulses present bilaterally. No murmurs. Respiratory: Moving air well bilaterally. No wheezing. Abdomen: Soft, nontender, nondistended. Positive bowel sounds. Extremities: No clubbing, cyanosis, or edema. Neurologic: Nonfocal. Integumentary: The patient does have some erythema and abrasions on his scrotum. Laboratory Data: Reviewed Assessment And Plan: An 87-year-old male with; 1. Acute exacerbation of diastolic heart failure. Ejection fraction 63%. We will continue congestive heart failure guidelines. Appreciate Dr. Ewing's input. 2. Acute respiratory failure with hypoxia and hypercapnia. The patient now on nasal cannula. We will continue to wean as tolerated. The patient is not on oxygen at home secondary to volume overload. 3. Essential hypertension, stable. 4. End-stage renal disease, on hemodialysis. Appreciate Nephrology input. We will continue dialysis as scheduled. 5. Diarrhea, improving. Clostridium difficile is negative. Fecal leukocytes did not show any wbcs too. Negative Culture. DC flagyl. 6. Bandemia, resolved. Continue IV Abx, f/up on cultures 7. Elevated troponin level secondary to acute renal issues and acute congestive heart failure. Appreciate Dr. Ewing's input. Echocardiogram reviewed. Not a good candidate for any acute cardiac intervention. 8. Scrotal abrasion. - Improving. 9. Hypertensive heart disease. 10. Gastrointestinal and deep venous thrombosis prophylaxis PPI and Lovenox. Plan: Continue PT, OT. Discharge planning likely discharge in next 24-48 hours if continues to improve.
--- NOTE | 2017-07-16 01:06 | PN ---
Date of Progress Note: 07/15/2017 Chief Complaint: End-stage renal disease, pulmonary edema, pneumonia, and respiratory failure. History Of Present Illness: The patient received ultrafiltration and dialysis to obtain negative fluid balance and metabolic clearance. Today, he states he has some shortness of breath and dialysis was initiated today with ultrafiltration. The patient was started on midodrine to prevent intra- dialysis hypotension. Blood pressure medications were reduced, and Coreg dose was reduced to 6.25 twice a day, Norvasc was stopped. Review of Systems: Denies fever or chills. He is complaining of cough. Physical Examination: Lungs: Crackles bilaterally present. Heart: S1, S2. Abdomen: Soft, benign. Extremities: Minimal edema. Blood Work: Hemoglobin 9.1, WBC 6.8, and platelet count 121,000. Chemistry showed sodium 136, potassium 3.5, chloride 97, CO2 30, BUN 49, creatinine 6.84, and calcium 8.7. Impression And Plan: 1. Congestive heart failure, acute on chronic diastolic dysfunction with hypoxemia, interstitial pulmonary edema and possible pneumonia. The patient will continue low-sodium diet and p.o. fluid restriction. Dialysis with ultrafiltration will be done to treat fluid overload and control congestive heart failure. 2. Hypertension, blood pressure medication adjusted to prevent hypotension. 3. Anemia in chronic kidney disease, continue VISH. 4. Renal osteodystrophy. Continue diet and binders. 5. Fatigue and deconditioning. The patient has pulmonary edema. He has history of diastolic congestive heart failure. Cardiology consultation was obtained to rule out pericardial effusion. JELANI/ASHLEY Voice ID: [id number] Report ID: [id number] ANAND
[2017-07-16] MEDS: ACETAMINOPHEN 500 MG TAB PO PRN ×2 (03:40→09:58)
[2017-07-16 06:47] VITALS: BMI 26.0
[2017-07-16 08:09] LABS: Potassium 4.3 mEq/L (3.6-5.0)
[2017-07-16] MEDS: METOLAZONE 5 MG TABLET PO SCH (09:00)
[2017-07-16] MEDS: CARVEDILOL 6.25 MG TAB PO SCH (09:00)
[2017-07-16] MEDS: ENOXAPARIN 30 MG/0.3 ML SQ SCH (09:00)
[2017-07-16] MEDS: CEFEPIME/SWI 1gm 1 GM/10 ML SYR IV SCH (09:57)
[2017-07-16] MEDS: MAGNESIUM OXIDE 400 MG TAB PO SCH (09:58)
[2017-07-16] MEDS: CITALOPRAM 10 MG TABLET PO SCH (09:58)
[2017-07-16 12:24] LABS: Absolute Lymphocytes (CBC) 0.8 K/uL (0.7-4.9); Absolute Monocytes 1.7 K/uL (0.1-1.3); Absolute Neutrophil 8.4 K/uL (1.8-8.0); Basophils % 0.5 % (0-1.3); Eosinophils % 2.2 % (0-4.4); Hematocrit 30.8 % (39.6-49.0); MCV 90.9 fL (80-100); MPV 9.2 fL (7.6-11.3); Monocytes % 15.4 % (3.3-12.3); RBC Red Blood Cell Count 3.39 M/uL (4.33-5.43)
[2017-07-16 13:01] VITALS: O2SAT 97
[2017-07-16 13:20] LABS: Blood Morphology Comment NOT SEEN (NOT SEEN); Platelet Estimate DECR; Urine White Blood Cell Casts OK
[2017-07-16 16:12] VITALS: BP 118/57; TEMP 98.4
--- NOTE | 2017-07-16 17:33 | P.DS ---
Admission Date: 07/11/17 Discharge Date: 07/16/17 Disposition: ROUTINE DISCHARGE Discharge Condition: GOOD Reason for Admission: acute respiratory failure Consultations: Pulmonology Nephrology Urology Brief History of Present Illness: Mr Mauro is an 87 years old male with history of ESRD on HD, HTN, who came to ED complaining of SOB. The patient was doing HD today, after miss several sessions for no clear reason since the patient is poor historian, where he was found to be on respiratory distress. No history of fever, chills or cough. He denied chest pain as well. The patient has had diarrhea as well. 911 was called from dialysis center. When EMT arrived, found the patient dyspneic, with O2 Sat 68% on RA. After oxygen support 15L, O2 sat increased up to 94%. In ED he had leukocytosis, was afebrile. CXR report mild CHF. ABG shows PH 7028, PCO2 55.7 PO2 59.9 Hospital Course: Overall during Hospital Stay pt remained stable. Pt was admitted to the hospital for Acute exacerbation of diastolic heart failure causing Respiratory failure. Was initially on BIPAP and weaned to NC. Echo with Ejection fraction 63%. Cardiology consulted. Was on Lasix and CHIDI inhibitor. Marked Improvement in symptoms. Patient also has a history of end- stage renal disease for which nephrology was consulted and patient was on dialysis. Patient received dialysis 3 times here in the hospital and again which improved his symptoms of respiratory failure. Initially due to metabolic acidosis patient was placed on bicarb drip however was discontinued when the acidosis result. Acidosis was most likely secondary to acute exacerbation of HF. Patient had marked improvement in his symptoms he was discharged back to [facility] for rehab. Patient was also set up with dialysis at least [place] dialysis unit and was to get dialyzed on . Cardiology also was consulted for any acute coronary and there mentioned given the elevated troponin however patient is currently a poor candidate for surgical intervention and medical management is preferred. Vital Signs/Physical Exam: Temp Pulse Resp BP Pulse Ox 98.4 F 67 16 118/57 L 90 L 07/16/17 16:00 07/16/17 16:00 07/16/17 16:00 07/16/17 16:00 07/16/17 16:00 General: Alert, In no apparent distress, Oriented x3 HEENT: Atraumatic, PERRLA, EOMI Neck: Supple, JVD not distended Respiratory: Clear to auscultation bilaterally, Normal air movement Cardiovascular: Regular rate/rhythm, Normal S1 S2 Gastrointestinal: Normal bowel sounds, No tenderness Musculoskeletal: No tenderness Integumentary: No rashes Neurological: Normal speech, Normal tone, Normal affect Lymphatics: No axilla or inguinal lymphadenopathy Laboratory Data at Discharge: WBC 11.2 K/uL (4.3-10.9) H D 07/16/17 10:24 Hgb 9.5 g/dL (13.6-17.9) L 07/16/17 10:24 Hct 30.8 % (39.6-49.0) L 07/16/17 10:24 Plt Count 131 K/uL (152-406) L 07/16/17 10:24 PT 13.1 SECONDS (9.5-12.5) H 07/11/17 16:30 INR 1.11 07/11/17 16:30 APTT 29.8 SECONDS (24.3-36.9) 07/11/17 16:30 Sodium 139 mEq/L (135-145) 07/16/17 07:20 Potassium 4.3 mEq/L (3.6-5.0) 07/16/17 07:20 BUN 28 mg/dL (6-20) H D 07/16/17 07:20 Creatinine 5.00 mg/dL (0.61-1.24) H D 07/16/17 07:20 Glucose 127 mg/dL (65-120) H 07/16/17 07:20 Magnesium 2.0 mg/dL (1.8-2.5) 07/11/17 16:30 Total Bilirubin 0.5 mg/dL (0.3-1.2) 07/15/17 03:39 AST 28 IU/L (10-42) 07/15/17 03:39 ALT 7 IU/L (10-60) L 07/15/17 03:39 Alkaline Phosphatase 54 IU/L (42-121) 07/15/17 03:39 B-Natriuretic Peptide 126 pg/ml (<=100) H 07/11/17 16:30 Home Medications: Amlodipine Besylate 10 mg PO DAILY 03/08/15 Citalopram Hydrobromide [Citalopram HBr] 1 tab PO DAILY 03/08/15 Docusate Sodium [Stool Softener] 100 mg PO DAILY PRN 03/08/15 Magnesium Oxide [Mag 0X*] 400 mg PO DAILY 08/08/16 Acetaminophen 650 mg PO Q4HP PRN 07/11/17 Metolazone [Zaroxolyn*] 5 mg PO DAILY 07/11/17 Carvedilol [Coreg*] 6.25 mg PO BID #60 tab 07/16/17 New Medications: Carvedilol [Coreg*] 6.25 mg PO BID #60 tab Patient Discharge Instructions: Please f/u with Dr Perez in office in 1 to 2 week. Please f/u with Dr Ewing in office in 1 week. New medication. Coreg 6.25 BID instead of 25mg BID. You dialysis will start on Diet: Regular Activity: Ad garth Followup: Kiki Taveras MD [COURTESY - CAN ADMIT] - 1-2 Weeks (follow up as scheduled dialysis)
[2017-07-16 19:00] LABS: HBsAG Nonreactive (Nonreactive)
--- NOTE | 2017-07-16 22:13 | PN ---
Date of Progress Note: 07/16/2017 Chief Complaint: End-stage renal disease, pulmonary edema, pneumonia, and respiratory failure. The patient has been treated with dialysis and ultrafiltration. He received dialysis yesterday. He is feeling better today. Review of Systems: Denies fever, chills. Complaining of nonproductive cough. Physical Examination: Lungs: Few crackles at bases. Heart: S1, S2. Abdomen: Soft, benign. Extremities: Slight edema. Laboratory Data: BUN 49, creatinine 6.84. WBC 6.8, hemoglobin 9.1. Sodium 136 , potassium 3.5, chloride 97, CO2 30. Impression And Plan: 1. Congestive heart failure, acute on chronic with diastolic dysfunction. Hypoxemia, interstitial pulmonary edema, possible pneumonia. Continue low- sodium diet, p.o. fluid restriction. Continue dialysis with ultrafiltration to treat fluid overload. 2. Hypertension. Blood pressure medication adjusted to prevent hypotension. 3. Anemia in chronic kidney disease. Continue VISH. 4. Renal osteodystrophy. Continue diet and binders. 5. Fatigue and deconditioning. The patient has pulmonary edema and pneumonia versus diastolic congestive heart failure. Cardiology consultation was obtained to rule out pericardial effusion. JELANI/MODL Voice ID: [id number] Report ID: [id number] ANAND
== END 2017-07-16 16:00 | DRG 291 ==
LOC: ER 15:39 → 4TH 18:46
PROVIDERS: ADMIT Family Medicine; ATTEND Internal Medicine
PROC: 5A1D70Z Performance of Urinary Filtration, Intermittent, Less than 6 Hours Per Day (ICD-10-PCS; principal; 2017-07-11)
PROC: 5A1D70Z Performance of Urinary Filtration, Intermittent, Less than 6 Hours Per Day (ICD-10-PCS; 2017-07-13)
PROC: 5A1D70Z Performance of Urinary Filtration, Intermittent, Less than 6 Hours Per Day (ICD-10-PCS; 2017-07-15)
DX: I13.2 Hypertensive heart and chronic kidney disease with heart failure and with stage 5 chronic kidney disease, or end stage renal disease (principal); J96.01 Acute respiratory failure with hypoxia; I50.33 Acute on chronic diastolic (congestive) heart failure; N18.6 End stage renal disease; J96.02 Acute respiratory failure with hypercapnia; R19.7 Diarrhea, unspecified; N25.0 Renal osteodystrophy; I95.9 Hypotension, unspecified; S30.813A Abrasion of scrotum and testes, initial encounter; Z99.2 Dependence on renal dialysis
CPT/HCPCS: 36415; 71045; 80048; 80053; 80076; 80202; 82550; 82553; 82805; 83605; 83735; 83880; 84145; 84484; 85025; 85610; 85730; 86704; 86706; 86803; 87040; 87045; 87046; 87205; 87340; 87493; 89055; 90935; 93005; 93306; 94760; 96374; 97163; 99285; J0692; J0885; J1650; J2405; J3370; P9047

== ENCOUNTER 2017-09-07 19:57 | Observation (INO) | payer OTHER ==
--- NOTE | 2017-09-07 20:39 | RAD REPORT ---
EXAM DESCRIPTION: CT - Head Brain Wo Cont - 09/07/2017 8:31 pm CLINICAL HISTORY: Syncope COMPARISON: September 2016 TECHNIQUE: Computed axial tomography of the head was obtained. IV contrast was not requested. All CT scans are performed using dose optimization technique as appropriate and may include automated exposure control or mA/KV adjustment according to patient size. FINDINGS: An intracranial bleed is not seen . The ventricles are normal in caliber. No extra-axial fluid collection is noted. A small low-density area within the right centrum semiovale probably represents an old infarction. Fluid within the sinuses/ mastoids is not seen. IMPRESSION: No acute intracranial abnormality is seen. If patient's symptoms persist MRI of the bra in would be recommended.
--- NOTE | 2017-09-07 21:38 | RAD REPORT ---
EXAM DESCRIPTION: Edm[facility] Single View09/07/2017 9:28 pm CLINICAL HISTORY: Chest pain COMPARISON: July 2017 FINDINGS: The lungs appear clear of acute infiltrate. The heart is borderline enlarged. Pacemaker leads are in place. A central venous catheter has its limbs in the superior vena cava IMPRESSION: No acute abnormalities displayed
[2017-09-07 21:50] LABS: Absolute Lymphocytes (CBC) 0.5 K/uL (0.7-4.9); Absolute Monocytes 0.8 K/uL (0.1-1.3); Absolute Neutrophil 6.8 K/uL (1.8-8.0); Basophils % 0.5 % (0-1.3); Eosinophils % 1.5 % (0-4.4); Hematocrit 25.9 % (39.6-49.0); Lymphocytes % 5.8 % (15.3-44.8); MCH 30.5 pg (27.0-35.0); MCV 91.5 fL (80-100); MPV 7.6 fL (7.6-11.3); Monocytes % 9.6 % (3.3-12.3); RBC Red Blood Cell Count 2.83 M/uL (4.33-5.43)
[2017-09-07 21:54] LABS: Protime INR 1.09
[2017-09-07 22:12] LABS: Albumin 2.9 g/dL (3.2-5.5); Bilirubin Direct 0.1 mg/dL (0-0.2); Bilirubin Total 0.3 mg/dL (0.3-1.2); CKMB Creatine Kinase MB 2.3 ng/ml (0.3-4.0); Magnesium 1.8 mg/dL (1.8-2.5); Protein, Total 6.5 g/dL (6.0-8.3)
[2017-09-07 22:13] LABS: Potassium 2.6 mEq/L (3.6-5.0)
[2017-09-07] MEDS ORDERED: NA CHLORIDE 0.9% 500 ML ONE (23:03)
[2017-09-07] MEDS ORDERED: KCL 20 MEQ/100 mL IVPB 20 MEQ/100 ML BAG IV ONE (23:03)
--- NOTE | 2017-09-08 00:13 | EDPHYS ---
Physician Documentation [facility] Name: Rik Mauro Age: 87 yrs Sex: Male : 1930 Arrival Date: 09/07/2017 Time: 19:59 Bed 2 Private MD: ED Physician Guille Starr HPI: 09/07 20:21 This 87 yrs old Black Male presents to ER via EMS with unknown complaint. pkl 20:21 The patient has experienced syncope, became unresponsive. Onset: The symptoms/episode pkl began/occurred today. Patient apparently had 2 episodes of syncope today. Patient fell about 1 week ago and injured his right lower rib cage.. EMT noted patient pulse was weak and unresponsive on arrival at the scene. Patient became responsive en route to the hospital.. Historical: - Allergies: 09/08 03:55 No Known Allergies; ao - Home Meds: 03:55 amlodipine 10 mg tab 1 tab once daily [Active]; carvedilol 25 mg Oral tab 1 tab 2 times ao per day [Active]; magnesium oxide 400 mg Oral cap [Active]; metolazone 5 mg Oral tab 1 tab once daily [Active]; citalopram 10 mg tab 1 tab once daily [Active]; - PMHx: 03:55 Anemia; BRADYCARDIA; Cataracts; CHF; DVT; EDEMA; ESRD; Gout; Hypertension; Prostate ao cancer 1989; - PSHx: 03:55 Unable to obtain; ao - Immunization history:: Last tetanus immunization: unknown. - Social history:: Smoking status: unknown. ROS: 09/07 20:36 Eyes: Negative for injury, pain, redness, and discharge, ENT: Negative for injury, pkl pain, and discharge, Neck: Negative for injury, pain, and swelling, Cardiovascular: Negative for chest pain, palpitations, and edema. Respiratory: Positive for pain right lower rib cage. Abdomen/GI: Negative for abdominal pain, nausea, vomiting, and diarrhea. Back: Negative for acute changes. : Negative for urinary symptoms. MS/extremity: Negative for acute changes. Skin: Negative for rash. Neuro: Positive for altered mental status, syncope. Exam: 20:36 Abdomen/GI: Bowel sounds: normal, Palpation: abdomen is soft and non-tender, in all pkl quadrants. 20:36 Head/Face: Normocephalic, atraumatic. Eyes: Pupils equal round and reactive to light, extra-ocular motions intact. Lids and lashes normal. Conjunctiva and sclera are non-icteric and not injected. Cornea within normal limits. Periorbital areas with no swelling, redness, or edema. ENT: Nares patent. No nasal discharge, no septal abnormalities noted. Tympanic membranes are normal and external auditory canals are clear. Oropharynx with no redness, swelling, or masses, exudates, or evidence of obstruction, uvula midline. Mucous membranes moist. Neck: Trachea midline, no thyromegaly or masses palpated, and no cervical lymphadenopathy. Supple, full range of motion without nuchal rigidity, or vertebral point tenderness. No Meningismus. 20:36 Chest/axilla: Palpation: tenderness, that is mild, of the right lower rib cage. 20:36 Cardiovascular: Rate: normal, Rhythm: regular. 20:36 Respiratory: the patient does not display signs of respiratory distress, Respirations: normal, Breath sounds: are clear throughout. 20:36 Respiratory: Mild tenderness right lower rib cage. 20:36 Abdomen/GI: Bowel sounds: normal, Palpation: abdomen is soft and non-tender, in all quadrants. 20:36 Back: Exam negative for acute changes. 20:36 : Exam negative for acute changes. 20:36 Musculoskeletal/extremity: Exam is negative for acute changes. 20:36 Skin: Exam negative for rash. 20:36 Neuro: Orientation: appropriate for stated age, Mentation: appropriate for stated age, Cranial nerves: grossly normal, Motor: moves all fours. Vital Signs: 20:02 BP 99 / 52; Pulse 74; Resp 18; Temp 98.8(O); Pulse Ox 100% on R/A; Weight 77.11 kg (R); fc Height 5 ft. 8 in. (172.72 cm) (R); Pain 7/10; 21:35 BP 104 / 48; Pulse 67; Resp 13; Pulse Ox 95% ; Pain 0/10; ao 22:30 BP 104 / 76; Pulse 74; Resp 18; Pulse Ox 100% ; Pain 0/10; ao 23:29 BP 105 / 75; Pulse 73; Resp 16; Pulse Ox 94% ; Pain 0/10; ao 05/06 00:30 BP 109 / 48; Pulse 86; Resp 16; Pulse Ox 94% on R/A; Pain 0/10; ao 01:45 BP 104 / 48; Pulse 81; Resp 18; Pulse Ox 98% on R/A; Pain 0/10; ao 05 20:02 Body Mass Index 25.85 (77.11 kg, 172.72 cm) fc MDM: 09/07 20:00 Patient medically screened. pkl 09/08 00:10 Data reviewed: vital signs, nurses notes, lab test result(s), EKG, radiologic studies, pkl CT scan, plain films. 09/07 20:11 Order name: Basic Metabolic Panel; Complete Time: 22:41 pkl 09/07 20:11 Order name: BNP; Complete Time: 22:41 pkl 09/07 20:11 Order name: CBC with Diff; Complete Time: :41 pkl 09/07 20:11 Order name: Ckmb; Complete Time: 22:41 pkl 09/07 20:11 Order name: CPK; Complete Time: 22:41 pkl 09/07 20:11 Order name: LFT's; Complete Time: 22:41 pkl 09/07 20:11 Order name: Magnesium; Complete Time: 22:41 pkl 09/07 20:11 Order name: PT-INR; Complete Time: 22:41 pkl 09/07 20:11 Order name: Ptt, Activated; Complete Time: 22:41 pkl 09/07 20:11 Order name: Troponin (emerg Dept Use Only); Complete Time: 22:41 pkl 09/07 20:11 Order name: XRAY Chest (1 view); Complete Time: 21:47 pkl 09/07 20:11 Order name: CT Head Brain wo Cont; Complete Time: 21:47 pkl 09/07 20:15 Order name: Lactate; Complete Time: 00:10 pkl 09/07 20:11 Order name: EKG; Complete Time: 20:12 pkl 09/07 20:11 Order name: Cardiac monitoring; Complete Time: 20:46 pkl 09/07 20:11 Order name: EKG - Nurse/Tech; Complete Time: 20:46 pkl 09/07 20:11 Order name: IV Saline Lock; Complete Time: 22:08 pkl 09/07 20:11 Order name: Labs collected and sent; Complete Time: 22:08 pkl 09/07 20:11 Order name: O2 Per Protocol; Complete Time: 20:46 pkl 09/07 20:11 Order name: O2 Sat Monitoring; Complete Time: 20:46 pkl Administered Medications: 09/07 23:17 Drug: Potassium Chloride 20 mEq Route: IV; Rate: calculated rate; Site: right jugular; ao 09/08 02:00 Follow up: IV Status: Completed infusion; IV Intake: 100ml ao Disposition: 09/08/17 00:13 Hospitalization ordered by Misty Kirby for Observation. Preliminary diagnosis is Recurrent syncopal episodes. Chronic renal disease. - Bed requested for Telemetry/MedSurg (observation). - Status is Observation. ao - Condition is Stable. - Problem is new. - Symptoms have improved. UTI on Admission? No Signatures: Dispatcher [employer] EDKS Nadege Payne RN RN kl Lam, Pin, MD MD pk Emily Meyers RN RN fc Ortiz, Alex, RN RN ao Corrections: (The following items were deleted from the chart) 09/07 22:08 20:11 Urine Dipstick-Ancillary ordered. pkl ao 23:36 20:15 BLOOD CULTURE*+BA.LAB.BRZ ordered. [facility] 09/08 02:31 00:13 Hospitalization Ordered by Misty Kirby MD for Observation. Preliminary kl diagnosis is Recurrent syncopal episodes. Chronic renal disease. Bed requested for Telemetry/MedSurg (observation). Status is Observation. Condition is Stable. Problem is new. Symptoms have improved. UTI on Admission? No. pkl 02:37 02:31 09/08/2017 00:13 Hospitalization Ordered by Misty Kirby MD for Observation. kl Preliminary diagnosis is Recurrent syncopal episodes. Chronic renal disease. Bed requested for Telemetry/MedSurg (observation). Status is Observation. Condition is Stable. Problem is new. Symptoms have improved. UTI on Admission? No. kl 03:55 02:37 09/08/2017 00:13 Hospitalization Ordered by Misty Kirby MD for Observation. ao Preliminary diagnosis is Recurrent syncopal episodes. Chronic renal disease. Bed requested for Telemetry/MedSurg (observation). Status is Observation. Condition is Stable. Problem is new. Symptoms have improved. UTI on Admission? No. jacqui
--- NOTE | 2017-09-08 00:13 | ER ---
Nurse's Notes [facility] Name: Rik Mauro Age: 87 yrs Sex: Male : 1930 Arrival Date: 09/07/2017 Time: 19:59 Bed 2 Private MD: Diagnosis: Recurrent syncopal episodes. Chronic renal disease Presentation: 09/07 20:02 Method Of Arrival: EMS: [facility] 20:02 Presenting complaint: EMS states: that they were toned for unresponsive pt. Upon there arrival pt was unresponsive for the second time today. His SBP was 81. EMS was told that pt had a fall last week and hurt his right ribs. Then two days ago pt was started on Coreg, Renavite and Clindamycin. Prior to arrival to ER pt became awake, alert and oreinted. Transition of care: patient was not received from another setting of care. Onset of symptoms was September 07, 2017. Initial Sepsis Screen: Does the patient meet any 2 criteria? No. Patient's initial sepsis screen is negative. Does the patient have a suspected source of infection? No. Patient's initial sepsis screen is negative. Care prior to arrival: Medication(s) given: Normal saline infusion, 200 ml IV initiated. 20 GA, in the left EJ Glucose check: 184. 20:02 Acuity: CHAVA 2 fc Historical: - Allergies: 09/08 03:55 No Known Allergies; ao - Home Meds: 03:55 amlodipine 10 mg tab 1 tab once daily [Active]; carvedilol 25 mg Oral tab 1 tab 2 times ao per day [Active]; magnesium oxide 400 mg Oral cap [Active]; metolazone 5 mg Oral tab 1 tab once daily [Active]; citalopram 10 mg tab 1 tab once daily [Active]; - PMHx: 03:55 Anemia; BRADYCARDIA; Cataracts; CHF; DVT; EDEMA; ESRD; Gout; Hypertension; Prostate ao cancer 1989; - PSHx: 03:55 Unable to obtain; ao - Immunization history:: Last tetanus immunization: unknown. - Social history:: Smoking status: unknown. Screenin/05 20:14 Abuse screen: Denies threats or abuse. Nutritional screening: No deficits noted. fc Tuberculosis screening: No symptoms or risk factors identified. Fall Risk None identified. Assessment: 21:00 General: Appears in no apparent distress. comfortable, Behavior is calm, cooperative, ao appropriate for age. Pain: Complains of pain in Left siede of the body Pain currently is 5 out of 10 on a pain scale. Neuro: Level of Consciousness is awake, alert, obeys commands, Oriented to person, place, time, situation, Weakness. Cardiovascular: Patient's skin is warm and dry. Respiratory: Airway is patent Respiratory effort is even, unlabored, Respiratory pattern is regular, symmetrical. GI: Abdomen is distended, obese. : No signs and/or symptoms were reported regarding the genitourinary system. EENT: No signs and/or symptoms were reported regarding the EENT system. Derm: Skin is intact, Skin is normal, Skin temperature is warm. Musculoskeletal: No signs and/or symptoms reported regarding the musculoskeletal system. 22:00 Reassessment: Patient appears in no apparent distress at this time. Patient and/or ao family updated on plan of care and expected duration. Pain level reassessed. Patient is alert, oriented x 3, equal unlabored respirations, skin warm/dry/pink. 22:50 Reassessment: Unable to pull for Blood cultures. Lab was called and was unable to pull. ao Dr Jansen was notified and decided to cancel. 23:29 Reassessment: Patient appears in no apparent distress at this time. Patient and/or ao family updated on plan of care and expected duration. Pain level reassessed. Patient is alert, oriented x 3, equal unlabored respirations, skin warm/dry/pink. Patient family advised that patient will stay in the hospital for two hours until potassium is done then Dr jansen will make a decision on his dispo. 09/08 00:30 Reassessment: Patient appears in no apparent distress at this time. Patient and/or ao family updated on plan of care and expected duration. Pain level reassessed. Patient is alert, oriented x 3, equal unlabored respirations, skin warm/dry/pink. 01:30 Reassessment: Patient decided to stay in the hospital. DR Austin was notified. ao 01:30 Reassessment: Patient appears in no apparent distress at this time. Patient and/or ao family updated on plan of care and expected duration. Pain level reassessed. Patient is alert, oriented x 3, equal unlabored respirations, skin warm/dry/pink. Vital Signs: 09/07 20:02 BP 99 / 52; Pulse 74; Resp 18; Temp 98.8(O); Pulse Ox 100% on R/A; Weight 77.11 kg (R); fc Height 5 ft. 8 in. (172.72 cm) (R); Pain 7/10; 21:35 BP 104 / 48; Pulse 67; Resp 13; Pulse Ox 95% ; Pain 0/10; ao 22:30 BP 104 / 76; Pulse 74; Resp 18; Pulse Ox 100% ; Pain 0/10; ao 23:29 BP 105 / 75; Pulse 73; Resp 16; Pulse Ox 94% ; Pain 0/10; ao 09/08 00:30 BP 109 / 48; Pulse 86; Resp 16; Pulse Ox 94% on R/A; Pain 0/10; ao 01:45 BP 104 / 48; Pulse 81; Resp 18; Pulse Ox 98% on R/A; Pain 0/10; ao 09/07 20:02 Body Mass Index 25.85 (77.11 kg, 172.72 cm) fc ED Course: 09/07 19:59 Patient arrived in ED. em1 19:59 Guille Jansen MD is Attending Physician. pkl 20:02 Arm band placed on Patient placed in an exam room, on a stretcher, on quality assurance monitor body, fc on pulse oximetry. 20:02 Patient has correct armband on for positive identification. Placed in gown. Bed in low fc position. Call light in reach. Side rails up X2. environmental monitoring technician on. Pulse ox on. NIBP on. 20:02 Maintain EMS IV. Dressing intact. Good blood return noted. Site clean \T\ dry. Gauge \T\ fc site: 20 gauge to left EJ. 20:12 Triage completed. fc 20:13 EKG done, by ED staff, reviewed by Guille Jansen MD. fc 20:29 CT completed. Patient moved to CT via stretcher. Patient moved back from CT. cw1 20:30 CT Head Brain wo Cont In Process Unspecified. EDMS 20:45 Danial Abbasi, RN is Primary Nurse. ao 21:28 XRAY Chest (1 view) In Process Unspecified. EDMS 09/08 00:11 Misty Kirby MD is Hospitalizing Provider. pkl 03:54 No provider procedures requiring assistance completed. Patient admitted, IV remains in ao place. Administered Medications: 09/07 23:17 Drug: Potassium Chloride 20 mEq Route: IV; Rate: calculated rate; Site: right jugular; ao 09/08 02:00 Follow up: IV Status: Completed infusion; IV Intake: 100ml ao Intake: 02:00 IV: 100ml; Total: 100ml. ao Outcome: 00:13 Decision to Hospitalize by Provider. pkl 03:54 Admitted to Tele accompanied by tech, room 402, Report called to MALI Ott ao 03:54 Condition: stable 03:54 Instructed on the need for admit. 03:55 Patient left the ED. ao Signatures: Dispatcher [employer] EDGuille Llamas MD MD pkl Chretien, Felicia, RN RN Jose Ramírez 1 Dulce Maria Bonilla 1 Danial Abbasi RN RN ao
--- NOTE | 2017-09-08 02:18 | P.HP ---
Certification for Inpatient Patient admitted to: Observation With expected LOS: <2 Midnights Practitioner: I am a practitioner with admitting privileges, knowledge of patient current condition, hospital course, and medical plan of care. Services: Services provided to patient in accordance with Admission requirements found in Title 42 Section 412.3 of the Code of Federal Regulations Patient History Date of Service: 09/08/17 Reason for admission: syncope History of Present Illness: Mr Mauro is an 87 years old male with history of HTN, ESRD on HD, who who about 1 week ago sustained a fall, leading with right flank pain. He went to an ER and was prescribed Tylenol #3. About 2 days ago, he was prescribed Coreg. Today the patient was having HD, when suddenly become unresponsive. Staff called 911. EMS found the patient unresponsive. After he recovered, he had another syncopal episode. His SBP was about 80. He remained unresponsive for about 20 minutes. In ER the pateitn was awake and alert. He did not remember having a syncopal episode. No history of fever, chills, chest pain, palpitations, or SOB. CT head shows no acute abnormalities. Allergies No Known Allergies Allergy (Verified 07/12/17 06:05) Home Medications: Amlodipine Besylate 10 mg PO DAILY 03/08/15 Citalopram Hydrobromide [Citalopram HBr] 1 tab PO DAILY 03/08/15 Docusate Sodium [Stool Softener] 100 mg PO DAILY PRN 03/08/15 Magnesium Oxide [Mag 0X*] 400 mg PO DAILY 08/08/16 Acetaminophen 650 mg PO Q4HP PRN 07/11/17 Metolazone [Zaroxolyn*] 5 mg PO DAILY 07/11/17 Carvedilol [Coreg*] 6.25 mg PO BID #60 tab 07/16/17 - Past Medical/Surgical History Diabetic: No -: ESRD on HD -: HTN -: anemia -: Hx of prostate cancer -: Dialysis catheter placement - Family History Family History: Reviewed- Non-Contributory - Social History Alcohol use: No CD- Drugs: No Caffeine use: No Place of Residence: Assisted Review of Systems 10-point ROS is otherwise unremarkable Physical Examination - Physical Exam General: Alert, In no apparent distress HEENT: Atraumatic, PERRLA, Mucous membr. moist/pink, EOMI, Sclerae nonicteric Neck: Supple, 2+ carotid pulse no bruit, No LAD, Without JVD or thyroid abnormality Respiratory: Clear to auscultation bilaterally, Normal air movement Cardiovascular: Regular rate/rhythm, Normal S1 S2 Gastrointestinal: Normal bowel sounds, No tenderness Musculoskeletal: No tenderness Integumentary: No rashes Neurological: Normal gait, Normal speech, Normal strength at 5/5 x4 extr, Normal tone, Normal affect Lymphatics: No axilla or inguinal lymphadenopathy - Studies Laboratory Data (last 24 hrs) 09/07/17 21:39: PT 12.9 H, INR 1.09, APTT 21.5 L 09/07/17 21:39: WBC 8.3, Hgb 8.6 L, Hct 25.9 L, Plt Count 134 L 09/07/17 21:39: B-Natriuretic Peptide 258 H 09/07/17 21:39: Sodium 135, Potassium 2.6 L*, BUN 12, Creatinine 3.15 H, Glucose 124 H, Magnesium 1.8, Total Bilirubin 0.3, AST 27, ALT 10, Alkaline Phosphatase 73 Assessment and Plan - Problems (Diagnosis) (1) ESRD on hemodialysis Onset Date: 07/12/17 Current Visit: No Status: Acute (2) HTN (hypertension) Onset Date: 07/12/17 Current Visit: No Status: Acute Qualifiers: Hypertension type: essential hypertension Qualified Code(s): I10 - Essential (primary) hypertension - Plan Mr Mauro will be admitted to the hospital due to syncope. This event was possible presipitated to his new medication (Coreg) associated with volume depletion after have HD today. There are no signs of active infection going on. Will order telemetry, hold coreg, start IV fluids. Replace electrolytes by protocol. - Advance Directives Does patient have a Living Will: No Does patient have a Durable POA for Healthcare: No - Code Status/Comfort Care Code Status Assessed: Yes Code Status: Full Code
[2017-09-08] MEDS ORDERED: ONDANSETRON 4 MG/2 ML VIAL IV PRN (03:51)
--- NOTE | 2017-09-08 05:48 | EKG ---
Test Date: 2017-09-07 Test Time: 20:07:58 Logistics Loss Prevention Manager: SUSIE MEASUREMENT RESULTS: Intervals: Rate: 70 TX: 120 QRSD: 196 QT: 514 QTc: 555 [place]: P: 90 TX: 120 QRS: -76 T: 100 INTERPRETIVE STATEMENTS: Atrial-sensed ventricular-paced rhythm Occasional PVC s Compared to ECG 07/11/2017 15:48:49 PVC s are now present Electronically Signed On 09-08-17 05:47:47 CDT by Luis Thornton
[2017-09-08] MEDS ORDERED: POTASSIUM 25 MEQ EFFERV TAB PO ONE ×2 (06:11→16:00)
[2017-09-08] MEDS ORDERED: MAGNESIUM SULFATE 1 gm IVPB 1 GM/100 ML BAG IV ONE (09:00)
[2017-09-09 04:58] VITALS: BMI 23.3
[2017-09-09 05:14] LABS: Magnesium 2.2 mg/dL (1.8-2.5); Potassium 4.4 mEq/L (3.6-5.0)
[2017-09-09 05:44] LABS: Absolute Monocytes 1.1 K/uL (0.1-1.3); Absolute Neutrophil 7.6 K/uL (1.8-8.0); Basophils % 0.4 % (0-1.3); Eosinophils % 2.4 % (0-4.4); Hematocrit 27.3 % (39.6-49.0); Lymphocytes % 10.4 % (15.3-44.8); MCH 29.4 pg (27.0-35.0); MCV 93.3 fL (80-100); Monocytes % 10.7 % (3.3-12.3); RBC Red Blood Cell Count 2.92 M/uL (4.33-5.43)
[2017-09-09] MEDS: MULTIVITAMINS,THERAPEUT 1 TAB PO SCH (08:52)
[2017-09-09] MEDS: CALCITROL 0.25 MCG CAP PO SCH (08:52)
[2017-09-09] MEDS: TAMSULOSIN 0.4 MG SR CAP PO SCH (08:52)
[2017-09-09] MEDS: CLOPIDOGREL 75 MG TABLET PO SCH (08:52)
[2017-09-09] MEDS ORDERED: TAMSULOSIN 0.4 MG SR CAP PO SCH (09:00)
[2017-09-09] MEDS: SODIUM BICARB 325 MG TAB PO SCH (09:00)
[2017-09-09] MEDS ORDERED: CARVEDILOL 25 MG TAB PO SCH (09:00)
[2017-09-09] MEDS ORDERED: METOLAZONE 5 MG TABLET PO SCH (09:00)
--- NOTE | 2017-09-09 14:26 | P.PN ---
Subjective Date of Service: 09/09/17 Primary Care Provider: Dr. Mackenzie; Nephrology-Dr. Almaraz Chief Complaint: syncope Subjective: Improving (Patient doing better. Patient reports recent start of carvedilol as an outpatient.) Physical Examination - Vital Signs Temperature: 97.2 F Blood Pressure: 84/49 Pulse: 88 Respirations: 16 Pulse Ox (%): 95 - Physical Exam General: Alert, In no apparent distress, Oriented x3, Cooperative HEENT: Atraumatic Neck: Supple Respiratory: Clear to auscultation bilaterally, Normal air movement Cardiovascular: Normal pulses, Regular rate/rhythm Gastrointestinal: Normal bowel sounds, Soft and benign, Non-distended, No tenderness, No masses, No rebound, No guarding Musculoskeletal: No erythema, No tenderness, No warmth Integumentary: No erythema, No warmth, No cyanosis Neurological: Normal speech, Normal strength at 5/5 x4 extr, Normal tone, Normal affect Lymphatics: No axilla or inguinal lymphadenopathy - Studies Medications List Reviewed: Yes Assessment & Plan - Problems (Diagnosis) (1) Syncope Current Visit: Yes Status: Acute Plan: Patient presented with syncope. Patient found to have hypokalemia and hypertension. Blood pressure medications have been discontinued especially Coreg which was started recently as outpatient. Will need to confirm dose. Patient with pacemaker. Will have pacemaker interrogated. Patient not able to get MRI jigar due to pacemaker. Await recommendation from Nephrology and cardiology. Family desires for the patient to go back to [facility]. Will discuss with Social service. Will have PT assess ambulation. Will monitor BP. Qualifiers: Syncope type: unspecified Qualified Code(s): R55 - Syncope and collapse (2) Hypotension Current Visit: Yes Status: Acute Plan: Hypertension may be related to medication. Will discontinue carvedilol. Will hold other blood pressure medications if systolic BP is less than 120. Qualifiers: Hypotension type: hypotension due to drug Qualified Code(s): I95.2 - Hypotension due to drugs (3) Pacemaker Current Visit: Yes Status: Chronic Plan: Will have pacemaker interrogated. (4) CHF (congestive heart failure) Onset Date: 07/12/17 Current Visit: No Status: Chronic Plan: In July of 2017 echocardiogram was done. Ejection fraction within normal range. Patient may have underlying diastolic dysfunction. Will discontinue diuretic therapy. Qualifiers: Heart failure type: diastolic Heart failure chronicity: chronic Qualified Code(s): I50.32 - Chronic diastolic (congestive) heart failure (5) ESRD on hemodialysis Onset Date: 07/12/17 Current Visit: No Status: Chronic Plan: Nephrology consulted to continue dialysis. Patient gets dialysis Tuesdays, and Saturdays. (6) HTN (hypertension) Onset Date: 07/12/17 Current Visit: No Status: Chronic Plan: Will hold blood pressure medication at this time. Qualifiers: Hypertension type: essential hypertension Qualified Code(s): I10 - Essential (primary) hypertension Discharge Plan: [facility] Plan to discharge in: 24 Hours Time Spent Managing Pts Care (In Minutes): 55
[2017-09-09] MEDS: ENOXAPARIN 30 MG/0.3 ML SQ SCH (16:16)
[2017-09-09] MEDS: NEPRO SHAKE 237 ML CAN PO SCH (16:16)
--- NOTE | 2017-09-09 20:17 | RAD REPORT ---
EXAM DESCRIPTION: MARIE - CP - 09/09/2017 7:02 pm CLINICAL HISTORY: Syncope COMPARISON: None. TECHNIQUE: Real-time sonographic evaluation of both carotid systems was performed. Doppler interroga tion was performed with waveform tracing bilaterally. FINDINGS: Normal high resistance waveforms are noted in both external carotid arteries. The common c arotid arteries and internal carotid arteries show normal low resistance waveforms. Left-sided assessment is very limited. There is a central line and bandaging in place. Additionally, the patient was talking, moving and otherwise unable to cooperate with the examination. Mild plaquing changes are present on the right. No abnormal velocity elevation on the right than the 1.1 ICA/ CCA ratio is normal range. The limited left-sided evaluation does show elevated left ICA velocity of 125 cm/second. This generates a 1.6 ICA/ CCA ratio. Significant disease cannot be confirmed on visual ins pection. Antegrade flow seen in both vertebral arteries. Velocity values and ratios were recorded and are retained in the patient's imaging records. IMPRESSION: Minimal right-sided plaquing with no right side stenosis. Technically limited left-side shows an elevated ICA velocity and elevated ratio. These abnormalities may be technical or due to a true atherosclerotic change. Examination may be repeated when the patient is more able to cooperate or there is a better access to the left-sided carotid vasculature. Alternatively, CT angiography could be performed.
[2017-09-09] MEDS: MIRTAZAPINE 15 MG TAB PO SCH (21:18)
[2017-09-09] MEDS: ACETAMINOPHEN 500 MG TAB PO PRN (21:18)
[2017-09-10] MEDS: ACETAMINOPHEN 500 MG TAB PO PRN ×2 (08:38→21:54)
[2017-09-10] MEDS: CLOPIDOGREL 75 MG TABLET PO SCH (08:38)
[2017-09-10] MEDS: MULTIVITAMINS,THERAPEUT 1 TAB PO SCH (08:38)
[2017-09-10] MEDS: CALCITROL 0.25 MCG CAP PO SCH (08:38)
[2017-09-10] MEDS: TAMSULOSIN 0.4 MG SR CAP PO SCH (08:38)
[2017-09-10] MEDS: SODIUM BICARB 325 MG TAB PO SCH (08:39)
[2017-09-10] MEDS: NEPRO SHAKE 237 ML CAN PO SCH (08:39)
--- NOTE | 2017-09-10 09:24 | RAD REPORT ---
EXAM DESCRIPTION: RAD - Chest Pa And Lat (2 Views) - 09/10/2017 8:31 am CLINICAL HISTORY: Chest pain, rib pain COMPARISON: 09/07/2017, 07/14/2017 FINDINGS: Opacity is present in the left retrocardiac region projecting posteriorly on the lateral v iew. This may represent an area of aspiration/atelectasis. The heart is mildly enlarged in size with dual lead pacer device present. Right-sided venous catheter has tip in the SVC. No displaced fracture s. IMPRESSION: Ill-defined opacity in the left retrocardiac region projecting posteriorly on the latera l view may represent an area atelectasis or aspiration.
--- NOTE | 2017-09-10 10:35 | P.PN ---
Subjective Date of Service: 09/10/17 Primary Care Provider: Dr. Mackenzie; Nephrology-Dr. Almaraz Chief Complaint: syncope Subjective: Other (Blood pressure improved. Patient reports some mild pain to the right upper quadrant abdominal region and it ribcage area. Patient fell from bed prior to admission.) Physical Examination - Vital Signs Temperature: 98.5 F Blood Pressure: 147/63 Pulse: 84 Respirations: 18 Pulse Ox (%): 93 - Physical Exam General: Alert, In no apparent distress, Oriented x3, Cooperative HEENT: Atraumatic, Mucous membr. moist/pink Neck: Supple Respiratory: Clear to auscultation bilaterally, Normal air movement Cardiovascular: Normal pulses, Regular rate/rhythm Gastrointestinal: Normal bowel sounds, Soft and benign, Non-distended, No masses , No rebound, No guarding, Tenderness (Mild pain to the right upper quadrant region) Musculoskeletal: No erythema, No tenderness, No warmth Integumentary: No erythema, No warmth, No cyanosis Neurological: Normal speech, Normal strength at 5/5 x4 extr, Normal tone, Normal affect - Studies Medications List Reviewed: Yes Assessment & Plan - Problems (Diagnosis) (1) Syncope Current Visit: Yes Status: Acute Plan: Patient presented with syncope and fall from bed. CT head unremarkable. Pacemaker interrogated. No changes noted. Cardiology consulted to further assess. Await recommendations from cardiology. Syncope likely related to low blood pressure. Blood pressure medications have been discontinued. Patient to get dialysis today. Will discuss with nephrology and cardiology. If patient stable then the patient may return to [facility]. Patient did report some right upper quadrant pain of the abdomen and ribcage region. This is were he fell from the bed prior to admission. X-ray shows no hematoma. Will order CT scan of the abdomen and pelvis to further assess. Will ambulate patient with physical therapy. Anticipate possible discharge later today if okay with cardiology and nephrology. May need to discontinue blood pressure medications at discharge. Qualifiers: Syncope type: unspecified Qualified Code(s): R55 - Syncope and collapse (2) Hypotension Current Visit: Yes Status: Acute Plan: Hypertension may be related to medication. Blood pressure medications have been discontinued. Blood pressure remained stable off medication. Qualifiers: Hypotension type: hypotension due to drug Qualified Code(s): I95.2 - Hypotension due to drugs (3) Pacemaker Current Visit: Yes Status: Chronic Plan: Pacemaker interrogated. Unremarkable. Await cardiology evaluation (4) CHF (congestive heart failure) Onset Date: 07/12/17 Current Visit: No Status: Chronic Plan: In July of 2017 echocardiogram was done. Ejection fraction within normal range. Patient may have underlying diastolic dysfunction. Will discontinue diuretic therapy. Qualifiers: Heart failure type: diastolic Heart failure chronicity: chronic Qualified Code(s): I50.32 - Chronic diastolic (congestive) heart failure (5) ESRD on hemodialysis Onset Date: 07/12/17 Current Visit: No Status: Chronic Plan: Nephrology consulted to continue dialysis. Patient gets dialysis Tuesdays, and Saturdays. Patient to have dialysis today (6) HTN (hypertension) Onset Date: 07/12/17 Current Visit: No Status: Chronic Plan: Will continue to hold blood pressure medication at this time. Qualifiers: Hypertension type: essential hypertension Qualified Code(s): I10 - Essential (primary) hypertension (7) Fall Current Visit: Yes Status: Acute Plan: Patient had a fall prior to admission. X-ray shows no hematoma. Will order CT abdomen and pelvis to further evaluate. Will provide medication. Will ambulate patient. Qualifiers: Encounter type: initial encounter Qualified Code(s): W19.XXXA - Unspecified fall, initial encounter (8) Abdominal pain Current Visit: Yes Status: Acute Plan: Patient fell prior to admission. He hit his right ribcage/abdominal region. Will order CT scan of the abdomen to further evaluate. Qualifiers: Abdominal location: right upper quadrant Qualified Code(s): R10.11 - Right upper quadrant pain (9) Anemia Current Visit: Yes Status: Chronic Plan: Anemia likely of chronic renal disease, stable. Qualifiers: Anemia type: due to chronic kidney disease Chronic kidney disease stage: on chronic dialysis Qualified Code(s): N18.6 - End stage renal disease; D63.1 - Anemia in chronic kidney disease; Z99.2 - Dependence on renal dialysis Discharge Plan: [facility] Plan to discharge in: 24 Hours Time Spent Managing Pts Care (In Minutes): 55
--- NOTE | 2017-09-10 13:01 | RAD REPORT ---
EXAM DESCRIPTION: CT - Abdomen Pelvis Wo Contrast - 09/10/2017 12:34 pm CLINICAL HISTORY: Abdominal pain status post fall. Right sided pain. COMPARISON: None TECHNIQUE: Computed axial tomography of the abdomen and pelvis was obtained. IV and oral contrast we re not requested. All CT scans are performed using dose optimization technique as appropriate and may include automated exposure control or mA/KV adjustment according to patient size. FINDINGS: The evaluation of solid organs, vessels and bowel is limited secondary to the lack of con trast administration. A left lower lobe consolidation is present. A nondisplaced fracture involves a mid to lower lateral right rib. The liver, spleen, pancreas, adrenals and kidneys appear grossly normal. Small inguinal hernias contain fat. There is no evidence diverticulitis. A small umbilical hernia con tains fat IMPRESSION: Left lower lobe consolidation consist with pneumonia. This should be followed until it i s clear to exclude a post obstructive process/underlying mass Nondisplaced fracture involving lateral mid to lower right rib
[2017-09-10] MEDS ORDERED: EPOETIN ALFA 10,000 UNIT/ML VIAL IV SCH (13:45)
--- NOTE | 2017-09-10 13:54 | P.DS ---
Admission Date: 09/08/17 Discharge Date: 09/10/17 Primary Care Provider: Dr. Mackenzie; Nephrology-Dr. Almaraz Disposition[facility] Discharge Condition: GOOD Reason for Admission: syncope Consultations: Nephrology-Dr. Almaraz Cardiology-Dr. Ewing Procedures: CT head: No acute abnormality noted CT chest abdomen: FINDINGS: The evaluation of solid organs, vessels and bowel is limited secondary to the lack of contrast administration. A left lower lobe consolidation is present. A nondisplaced fracture involves a mid to lower lateral right rib. The liver, spleen, pancreas, adrenals and kidneys appear grossly normal. Small inguinal hernias contain fat. There is no evidence diverticulitis. A small umbilical hernia contains fat IMPRESSION: Left lower lobe consolidation consist with pneumonia. This should be followed until it is clear to exclude a post obstructive process/underlying mass Nondisplaced fracture involving lateral mid to lower right rib - Problems (1) Syncope Current Visit: Yes Status: Acute Qualifiers: Syncope type: unspecified Qualified Code(s): R55 - Syncope and collapse (2) Hypotension Current Visit: Yes Status: Acute Qualifiers: Hypotension type: hypotension due to drug Qualified Code(s): I95.2 - Hypotension due to drugs (3) Pacemaker Current Visit: Yes Status: Chronic (4) CHF (congestive heart failure) Onset Date: 07/12/17 Current Visit: No Status: Chronic Qualifiers: Heart failure type: diastolic Heart failure chronicity: chronic Qualified Code(s): I50.32 - Chronic diastolic (congestive) heart failure (5) ESRD on hemodialysis Onset Date: 07/12/17 Current Visit: No Status: Chronic (6) HTN (hypertension) Onset Date: 07/12/17 Current Visit: No Status: Chronic Qualifiers: Hypertension type: essential hypertension Qualified Code(s): I10 - Essential (primary) hypertension (7) Fall Current Visit: Yes Status: Acute Qualifiers: Encounter type: initial encounter Qualified Code(s): W19.XXXA - Unspecified fall, initial encounter (8) Abdominal pain Current Visit: Yes Status: Acute Qualifiers: Abdominal location: right upper quadrant Qualified Code(s): R10.11 - Right upper quadrant pain (9) Anemia Current Visit: Yes Status: Chronic Qualifiers: Anemia type: due to chronic kidney disease Chronic kidney disease stage: on chronic dialysis Qualified Code(s): N18.6 - End stage renal disease; D63.1 - Anemia in chronic kidney disease; Z99.2 - Dependence on renal dialysis (10) Closed traumatic nondisplaced fracture of rib Current Visit: Yes Status: Acute (11) Pneumonia Current Visit: Yes Status: Acute Qualifiers: Pneumonia type: due to unspecified organism Laterality: left Lung location: lower lobe of lung Qualified Code(s): J18.1 - Lobar pneumonia, unspecified organism (12) BPH (benign prostatic hyperplasia) Current Visit: Yes Status: Chronic Qualifiers: Lower urinary tract symptom presence: unspecified whether lower urinary tract symptoms present Qualified Code(s): N40.0 - Benign prostatic hyperplasia without lower urinary tract symptoms Brief History of Present Illness: 87-year-old Afro-Thai male presented emergency room after syncopal episode. Patient had fallen from his bed about a week ago. During dialysis prior to admission the patient had a syncopal episode. Patient found to have low blood pressure at that time. Patient had been started on new medication for blood pressure recently. The patient was sent to the ER for further evaluation. Hospital Course: During the course of his stay his condition improved. Patient was evaluated by nephrology and cardiology. His pacemaker was interrogated. No abnormalities were noted. CT of the head showed no acute changes. Syncopal episode and hypotension likely related to medication-metolazone and carvedilol. Both medications were discontinued during his stay. Blood pressure remained stable off both medications. Cardiology did evaluate the patient. No further intervention was recommended. At discharge metolazone and carvedilol have been discontinued. Blood pressure are to be monitored closely. If blood pressures increase medications can be adjusted by Nephrology. Patient has end-stage renal disease on dialysis. He did receive dialysis then will continue to have dialysis as an outpatient. As mentioned above patient with history of hypertension. Medications have been discontinued. This will need to be monitored closely. Patient reported some pain to the right flank region. CT scan revealed nondisplaced rib fracture with left lower lobe pneumonia. White count unremarkable. Patient did have a temperature of 100.4. Patient did not have any respiratory distress. At discharge patient will continue with pain medication as needed. He will continue with incentive spirometer. At discharge patient will continue with Augmentin 500 mg once daily for 7 days. Recommendation is to recheck chest x-ray in 2-4 weeks to monitor resolution of the pneumonia. Patient may continue with physical therapy at the residential. Patient has BPH. Patient will continue with Flomax. Patient with anemia of chronic disease related to his kidney function. This remained stable during his stay. Patient will continue with physical therapy at the residential. Patient likely with diastolic CHF. Patient will continue with a 1500 cc per day fluid restriction. No need for diuretic therapy is needed at this time. Vital Signs/Physical Exam: Temp Pulse Resp BP Pulse Ox 98.2 F 88 18 138/63 94 09/10/17 12:00 09/10/17 12:00 09/10/17 12:00 09/10/17 12:00 09/10/17 12:00 General: Alert, In no apparent distress, Oriented x3, Cooperative HEENT: Atraumatic Neck: Supple Respiratory: Clear to auscultation bilaterally, Normal air movement, Other ( Mild pain to the right flank region) Cardiovascular: Normal pulses, Regular rate/rhythm Gastrointestinal: Normal bowel sounds, Soft and benign, Non-distended, No tenderness, No masses, No rebound, No guarding Musculoskeletal: Tenderness (Pain to the right flank ribcage region) Integumentary: No erythema, No warmth, No cyanosis Neurological: Normal speech, Normal strength at 5/5 x4 extr, Normal tone, Normal affect Lymphatics: No axilla or inguinal lymphadenopathy Laboratory Data at Discharge: WBC 10.0 K/uL (4.3-10.9) D 09/09/17 05:30 Hgb 8.6 g/dL (13.6-17.9) L 09/09/17 05:30 Hct 27.3 % (39.6-49.0) L 09/09/17 05:30 Plt Count 171 K/uL (152-406) D 09/09/17 05:30 PT 12.9 SECONDS (9.5-12.5) H 09/07/17 21:39 INR 1.09 09/07/17 21:39 APTT 21.5 SECONDS (24.3-36.9) L 09/07/17 21:39 Sodium 135 mEq/L (135-145) 09/09/17 04:07 Potassium 4.4 mEq/L (3.6-5.0) 09/09/17 04:07 BUN 20 mg/dL (6-20) 09/09/17 04:07 Creatinine 5.53 mg/dL (0.61-1.24) H* D 09/09/17 04:07 Glucose 104 mg/dL (65-120) 09/09/17 04:07 Magnesium 2.2 mg/dL (1.8-2.5) 09/09/17 04:07 Total Bilirubin 0.3 mg/dL (0.3-1.2) 09/07/17 21:39 AST 27 IU/L (10-42) 09/07/17 21:39 ALT 10 IU/L (10-60) 09/07/17 21:39 Alkaline Phosphatase 73 IU/L (42-121) 09/07/17 21:39 B-Natriuretic Peptide 258 pg/ml (<=100) H 09/07/17 21:39 Home Medications: Acetaminophen with Codeine [Acetaminophen-Cod #3 Tablet] 1 each PO Q4HR PRN 10/21 Calcitrol [Rocaltrol*] 0.25 mcg PO DAILY 09/08/17 Clopidogrel Bisulfate [Plavix*] 75 mg PO DAILY 09/08/17 Folic Acid/Vit Bcomp,C [Fidelia-Valentino Tablet] 0.8 mg PO DAILY 09/08/17 Mirtazapine 15 mg PO DAILY 09/08/17 Ondansetron [Zofran (Odt)*] 4 mg PO Q6H PRN 09/08/17 Sodium Bicarbonate 650 mg PO DAILY 09/08/17 Tamsulosin [Flomax*] 2 cap PO DAILY 09/08/17 Amoxicillin/Potassium Clav [Augmentin 500-125 Tablet] 1 each PO DAILY #7 tablet 09/10/17 Benzonatate [Tessalon Perle] 100 mg PO TID PRN #20 cap 09/10/17 Nepro Shake [Nepro*] 237 ml PO DAILY #30 can 09/10/17 New Medications: Amoxicillin/Potassium Clav [Augmentin 500-125 Tablet] 1 each PO DAILY #7 tablet Benzonatate [Tessalon Perle] 100 mg PO TID PRN #20 cap PRN Reason: Cough Nepro Shake [Nepro*] 237 ml PO DAILY #30 can Patient Discharge Instructions: 1. Patient be transferred to residential to continue his care. 2. Patient presented with syncope likely related to medication. At discharge he will no longer take carvedilol and metolazone. Patient with history of hypertension. Patient at discharge will monitor blood pressures closely. No need for medication at this time. If blood pressures remain elevated he is to contact nephrology for further recommendation. This to be monitored by nephrology during dialysis. 3. Patient found to have left lower lobe pneumonia. At discharge she will continue with Augmentin 500 mg 1 pill daily for 7 days. Tessalon Perles 100 mg 1 pill 3 times a day as needed for cough will be provided. Recommendation is to recheck chest x-ray in 2-4 weeks to monitor resolution. At discharge patient did not require any oxygen. Vital signs stable. 4. Patient has BPH. Patient will continue with Flomax. 5. Patient with chronic pain. Patient will continue with medication as needed. 6. Patient has anemia of chronic renal disease. This remained stable. This can be followed by nephrology as an outpatient. 7. Patient has CHF with history of pacemaker. Pacemaker interrogated. No abnormality noted. Patient evaluated by Cardiology. No intervention needed at this time. Patient will continue with a 1500 cc per day fluid restriction. 8. Patient continue with physical therapy at the residential. 9. Patient has nondisplaced rib fracture. He may continue with his medication as needed. Patient will continue with incentive spirometer. Diet: Renal Activity: Fall precautions Time spent managing pt's care (in minutes): 55
[2017-09-10] MEDS: ENOXAPARIN 30 MG/0.3 ML SQ SCH (17:17)
--- NOTE | 2017-09-10 19:06 | PN ---
Date of Progress Note: 09/10/2017 Consulting Physician: Dr. Pal. Reason For Consultation: Elevated BUN and creatinine, hemodialysis management. History Of Present Illness: This is a pleasant 87-year-old gentleman, well known to me from the dial ysis with significant past medical history of end-stage renal disease, on hemodialysis, recently star cherry TTS at [facility]. The patient came to the hospital complaining from chest p ain, altered mental status. The patient is due for dialysis. For that reason, we have been consulte d. Found to have over volume and electrolyte imbalance. For that reason, we have been consulted. Past Medical History: Include: 1.Hypertension. 2.End-stage renal disease, on hemodialysis, TTS. 3.Hyperlipidemia. 4.Prostate cancer. Home Medications: Include: 1.Norvasc. 2.Percocet. 3.Magnesium. 4.Tylenol. 5.Metolazone. 6.Carvedilol. Social History: Denies smoking, denies drinking, denies drug abuse. Family History: Positive for hypertension. Allergies: NO KNOWN DRUG ALLERGIES. Review of Systems: Head and Neck: No red eye. No ear pain. GI: No nausea, no vomiting. : No polyuria. No dysuria. No hematuria. Decreased urine output. Repair Service Dispatcher: Not applicable. Respiratory: Has chest pain. Has cough. Cardiovascular: No palpitation. Endocrine: No polydipsia. Skin: No rash. Neuro: Has fall. Musculoskeletal: Has right chest pain. Current Medications: The patient on its include: 1.Flomax. 2.Plavix. 3.Lovenox. 4.Mirtazapine. 5.Sodium bicarb. 6.Nepro. 7.Zofran. 8.Calcitriol 0.25. Physical Examination: Vital Signs: When I saw the patient, blood pressure 138/63, pulse of 88. Chest: Decreased entry on the right base. Heart: S1, S2. Regular. Systolic murmur. Abdomen: Soft, nontender. Extremities: No edema. Laboratory Data: WBC 10, H and H are 8.6/27.3. Sodium 135, potassium 4.4, bicarb 24, BUN 20, creati nine 5.5, calcium 8.6, magnesium of 2. Assessment And Plan: 1.End-stage renal disease. Normal volume. The patient is due for dialysis today. We will dialyze him and we will follow up. 2.Hypertension, controlled, optimal. I agree with holding the metolazone. The patient already had decreased urine output. 3.Acidosis. The patient is going to be dialyzed. I going to go ahead and discontinue sodium bicarb . 4.Secondary hyperparathyroidism. The patient will be receiving Hectorol on dialysis with the calcit riol. 5.Anemia of chronic kidney disease. Start the patient on Epogen and we will follow up the patient. 6.Pneumonia confirmed on the CT. The patient is going to be started on antibiotic, will be started on Levaquin. We will follow up. 7.Hypokalemia. The patient is going to be dialyzed on high potassium bath. The patient is cleared from the renal standpoint for discharge planning. Care Discussed With: Case discussed with Dr. Pal. JAYLA Voice ID: [id number] Report ID: [id number]
[2017-09-10] MEDS: MIRTAZAPINE 15 MG TAB PO SCH (21:53)
[2017-09-11] MEDS: AZITHROMYCIN 250 MG TAB PO SCH ×2 (06:39→08:47)
[2017-09-11] MEDS ORDERED: CEFTRIAXONE 1 GM/NS 50 ML 1 GM/50 ML BAG IV SCH (06:39)
[2017-09-11] MEDS ORDERED: CEFTRIAXONE/SWI 1gm 1 GM/10 ML SYR IV SCH (07:30)
--- NOTE | 2017-09-11 07:50 | RAD REPORT ---
EXAM DESCRIPTION: Edmundo Single View09/10/2017 10:32 pm CLINICAL HISTORY: Shortness of breath COMPARISON: September 10 FINDINGS: No change has occurred in the left lower lobe consolidation. The right lung appears clear. The heart is mildly enlarged. Pacemaker leads are in place. A central venous catheter remains in place IMPRESSION: No change in a left lower lobe pneumonia
[2017-09-11] MEDS: MULTIVITAMINS,THERAPEUT 1 TAB PO SCH (08:47)
[2017-09-11] MEDS: TAMSULOSIN 0.4 MG SR CAP PO SCH (08:47)
[2017-09-11] MEDS: CLOPIDOGREL 75 MG TABLET PO SCH (08:47)
[2017-09-11] MEDS: NEPRO SHAKE 237 ML CAN PO SCH (08:48)
--- NOTE | 2017-09-11 12:13 | CON ---
Date of Consultation: 09/10/2017 Admitted on 09/08/[address] Pal for syncope. The patient was seen on 09/10/2017. History Of Present Illness: Mr. Mauro is an 87-year-old male with history of congestive heart failur e, deep venous thrombosis, end-stage renal disease on dialysis, gout, and hypertension. He has a his tory of bradycardia in the past with anemia. He has not had a syncopal episode. No chest pain repor cherry. No PND, orthopnea, pedal edema, or palpitation. Workup showed a creatinine of 5.5, hemoglobin of 8.6. He had an echocardiogram in July 2017 showing decreased left ventricular compliance. He more d a carotid Doppler, which was negative. Past Medical History: As stated above. Allergies: NONE. Review of Systems: Negative. Social History: Negative. Family History: Negative. Medications: At home include Coreg, Plavix, metolazone, and Flomax. Physical Examination: General: He is a very pleasant, no acute distress, wanted to go home. Vital Signs: Stable. Afebrile. HEENT: Negative. Neck: Supple with no bruit. Chest: Clear. Cardiac: Revealed a regular rhythm and rate with an S4, gallops. No murmurs or rubs. Abdomen: Benign. Extremities: Revealed no clubbing, cyanosis, or edema. Diagnostic Data: Fairly unremarkable and as listed above. Impression And Plan: I believe his syncopal episode is secondary to hypotension because of the combi nation of the Coreg and the metolazone and the Flomax. Dr. Pal has already taken him off Coreg. He is bradycardic and slightly hypotensive. We would also hold the metolazone. He will be getting h emodialysis maybe today. I do not want to embark on any more cardiac workup at this point. We will follow him alone and see how he does after his hemodialysis. His congestive heart failure is chronic , chronic, and stable. His anemia is stable. His hypertension is well controlled and his gout is pr trice inactive. NB/MODL Voice ID: [id number] Report ID: [id number]
--- NOTE | 2017-09-11 14:13 | PN ---
Date of Progress Note: 09/11/2017 Subjective: The patient doing well. Pain has been subsided on the right side. Physical Examination: Vital Signs: Blood pressure 123/63, afebrile. Chest: Crackles on the right base. Heart: S1, S2. Regular. Abdomen: Soft, nontender. Extremities: No edema. Laboratory Data: H and H 8.6/27.3. Sodium 135, potassium 4.4, bicarb 24, BUN 20, creatinine 5.5, ca lcium 8.6, magnesium 2.2. Medications: Current medications the patient on is include: 1.Z-Bec. 2.Ceftriaxone. 3.Flomax. 4.Plavix. 5.Lovenox. 6.Epogen. 7.Tylenol. 8.Mirtazapine. 9.Nepro. 10.Multivitamin. Assessment And Plan: 1.End-stage renal disease, normal volume. We will continue the patient on dialysis. Status post di alysis yesterday. Plan for dialysis tomorrow. 2.Hypertension, controlled, optimal. Continue current medication. 3.Anemia. Continue Epogen. 4.Pneumonia. Continue current antibiotic. We will follow up with the primary. 5.Deconditioning. Continue PT/OT. The patient cleared from the renal standpoint for discharge plan ning. DICKERSON Voice ID: [id number] Report ID: [id number]
[2017-09-11 16:15] VITALS: BP 116/57; TEMP 97.7
[2017-09-11 16:57] VITALS: O2SAT 96
[2017-09-12 13:52] LABS: HBsAG Nonreactive (Nonreactive)
== END 2017-09-11 16:51 ==
LOC: ER 19:57 → ERHOLD 09-08 00:14 → 4TH 09-08 03:19
PROVIDERS: ADMIT Internal Medicine; ATTEND Internal Medicine
PROC: 5A1D70Z Performance of Urinary Filtration, Intermittent, Less than 6 Hours Per Day (ICD-10-PCS; principal; 2017-09-10)
DX: R55 Syncope and collapse (principal); I95.9 Hypotension, unspecified; J18.9 Pneumonia, unspecified organism; S22.31XA Fracture of one rib, right side, initial encounter for closed fracture; W06.XXXA Fall from bed, initial encounter; Y92.003 Bedroom of unspecified non-institutional (private) residence as the place of occurrence of the external cause; N25.81 Secondary hyperparathyroidism of renal origin; N25.89 Other disorders resulting from impaired renal tubular function; D63.1 Anemia in chronic kidney disease; E87.6 Hypokalemia; I13.2 Hypertensive heart and chronic kidney disease with heart failure and with stage 5 chronic kidney disease, or end stage renal disease; I50.32 Chronic diastolic (congestive) heart failure; Z95.0 Presence of cardiac pacemaker; N40.0 Benign prostatic hyperplasia without lower urinary tract symptoms
CPT/HCPCS: 36415 ×2; 70450; 71045 ×2; 71046; 74176; 80048 ×2; 80076; 82550; 82553; 83605; 83735 ×2; 83880; 84132 ×2; 84484; 85025 ×2; 85610; 85730; 86704; 86706; 86803; 87340; 90935; 93005; 93880; 96365; 96366; 97116 ×3; 97163; 97530 ×3; 99285; G0378 ×2; J0696; J1650 ×2; J3475

== ENCOUNTER 2017-10-15 16:10 | Inpatient (IN) | payer OTHER ==
--- OUTSIDE RECORDS SUMMARY | 2017-10-15 16:12 | XMS REPORT | Clinical Summary ---
:1930 Author Organization [facility] Address [address] [place] [address] Care Team Providers Name Role Phone Asked, No Pcp Primary Care Provider Unavailable Allergies No Known Allergies Current Medications Prescription Sig. Disp. Refills Start Date End Date Status cholecalciferol, Take 5,000 Units Active vitamin D3, by mouth every (VITAMIN D3) 5,000 morning. unit capsule clopidogrel Take 75 mg by Active (PLAVIX) 75 mg mouth every tablet morning. mirtazapine Take 15 mg by Active (REMERON) 15 MG mouth every tablet morning. calcitriol Take 0.25 mcg by Active (ROCALTROL) 0.25 mouth every MCG capsule morning. sodium bicarbonate Take 650 mg by Active 650 mg tablet mouth daily. tamsulosin Take 0.8 mg by Active (FLOMAX) 0.4 mg mouth every capsule,extended morning. release 24hr dronabinol Take 2.5 mg by Active (MARINOL) 2.5 MG mouth 2 (two) capsule times a day before meals. acetaminophen Take 650 mg by Active (TYLENOL) 325 MG mouth every 6 tablet (six) hours as needed for mild pain or fever. benzonatate Take 100 mg by Active (TESSALON) 100 MG mouth every 8 capsule (eight) hours as needed for cough. ondansetron Take 4 mg by Active (ZOFRAN) 4 MG mouth every 6 tablet (six) hours as needed for nausea or vomiting. acetaminophen-code Take 1 tablet by Active ine (TYLENOL WITH mouth every 4 CODEINE #3) 300-30 (four) hours as mg per tablet needed for moderate pain. folic acid/vit B Take 1 tablet by Active complex and C mouth every (JESSICA-MIKALA ORAL) morning. midodrine Take 1 tablet (10 90 tablet 0 10/12/2017 Active (PROAMATINE) 10 MG mg total) by 8 tablet mouth 3 (three) times a day for 30 days. warfarin PT/INR every 2-3 5 tablet 0 10/12/2017 Active (COUMADIN) 2.5 MG days to adjust 9 tablet coumadin for DVT until INR is 2-3 and then prn as needed ipratropium-albute Take 3 mL by 270 mL 0 10/12/2017 Active rol (DUO-NEB) nebulization 6 8 0.5-2.5 mg/mL (six) times a day nebulizer as needed for wheezing for up to 30 days. vit B Take 1 tablet by Discontinued complex-vitamin mouth every 8 C-folic acid morning. (NEPHRO-MIKALA OTC) 0.8 mg tablet Active Problems Problem Noted Date ESRD (end stage renal disease) 10/08/2017 Encounters Date Type Specialty Care Team Description 10/08/2017 - Hospital Encounter General Internal Dana, ESRD (end stage renal disease) (Primary Dx); 10/12/2017 Medicine Adrien Cheney MD Complication of vascular access for dialysis, initial encounter Dwaine Barnes MD after 10/14/2016 Social History Tobacco Use Types Packs/Day Years Used Date Former Smoker Smokeless Tobacco: Never Used Alcohol Use Drinks/Week oz/Week Comments No Sex Assigned at Date Recorded Not on file Last Filed Vital Signs Vital Sign Reading Time Taken Blood Pressure 100/56 10/12/2017 7:44 AM CDT Pulse 92 10/12/2017 7:44 AM CDT Temperature 36.8 C (98.2 F) 10/12/2017 7:44 AM CDT Respiratory Rate 18 10/12/2017 7:44 AM CDT Oxygen Saturation 99% 10/12/2017 7:44 AM CDT Inhaled Oxygen Concentration - - Weight 63.9 kg (140 lb 14 oz) 10/11/2017 5:08 AM CDT Height 177.8 cm (5' 10") 10/08/2017 7:40 PM CDT Body Mass Index 20.21 10/11/2017 5:08 AM CDT Plan of Treatment Health Maintenance Due Date Last Done Comments SHINGRIX VACCINE (#1) 1979 ZOSTER VACCINE 1989 PNEUMOCOCCAL POLYSACCHARIDE VACCINE AGE 65 AND OVER 1994 PNEUMOCOCCAL-13 1994 INFLUENZA VACCINE 12/04/2017 Implants Implanted Type Area Director Of Automation Device Expiration Model / Identifier Date Serial / Lot Set Zulemaztn Hmodiameagan Lngtrm Accs 15fr 28cm Edge Simplicity - [id number] Surgical N/A: N/A ARROW 07/03/2020 [id number] IM / Implanted: 10/08/2017 (Quantity not on file) Implants; [employer] / [employer]and[employer]; INC [id number] Extenders; Surgical Wires Pacemaker Pacemaker Procedures Procedure Name Priority Date/Time Associated Diagnosis Comments HEMODIALYSIS Routine 10/10/2017 5:15 PM CDT HEMODIALYSIS Routine 10/08/2017 4:17 PM CDT after 10/14/2016 Results Estimated GFR (10/12/2017 5:00 AM)Only the most recent of5 resultswithin the time period is included. Component Value Ref Range GFR Non Af Amer 13 (A) mL/min/1.73 m2 GFR Af Amer 15 (A) mL/min/1.73 m2 Comment: Chronic kidney disease: <60 mL/min/1.73m2 Kidney failure: <15 mL/min/1.73m2 The estimated GFR is calculated from the IDMS-traceable Modification of Diet in Renal Disease Equation. The accuracy of the calculation is poor when the creatinine is normal. Calculated values >90 mL/min/1.73m2 are not reported. This equation has not been validated in children (<18 years), women, the elderly (>70 years), or ethnic groups other than Caucasians and Americans. Specimen Performing Laboratory Plasma specimen [facility] DEPARTMENT OF PATHOLOGY AND GENOMIC MEDICINE [address] [place] [id number] Prothrombin time with INR (10/12/2017 5:00 AM)Only the most recent of3 resultswithin the time period is included. Component Value Ref Range Prothrombin time 15.3 (H) 12.0 - 15.0 sec INR 1.2 Comment: The International Normalized Ratio (INR) is a therapeutic monitoring tool for patients who are stable on oral anticoagulant therapy. An INR of 2.0-3.0 is suggested for deep vein thrombosis/pulmonary embolism. Specimen Performing Laboratory Blood [facility] DEPARTMENT OF PATHOLOGY AND GENOMIC MEDICINE [address] [place] [phone] CBC with platelet and differential (10/12/2017 5:00 AM)Only the most recent of5 resultswithin the time period is included. Component Value Ref Range WBC 14.27 (H) 4.50 - 11.00 k/uL RBC 3.12 (L) 4.40 - 6.00 m/uL HGB 8.8 (L) 14.0 - 18.0 g/dL HCT 29.2 (L) 41.0 - 51.0 % MCV 93.6 82.0 - 100.0 fL MCH 28.2 27.0 - 34.0 pg MCHC 30.1 (L) 31.0 - 37.0 g/dL RDW - SD 63.4 (H) 37.0 - 55.0 fL MPV 10.3 8.8 - 13.2 fL Platelet count 150 150 - 400 k/uL Nucleated RBC 0.10 /100 WBC Neutrophils 83.5 (H) 39.0 - 69.0 % Lymphocytes 5.7 (L) 25.0 - 45.0 % Monocytes 8.5 0.0 - 10.0 % Eosinophils 1.1 0.0 - 5.0 % Basophils 0.4 0.0 - 1.0 % Immature granulocytes 0.8Comment: "Immature granulocytes" 0.0 - 1.0 % (promyelocytes, myelocytes, metamyelocytes) Specimen Performing Laboratory Blood [facility] DEPARTMENT OF PATHOLOGY AND [facility] MEDICINE [address] [place] [phone] Basic metabolic panel (10/12/2017 5:00 AM)Only the most recent of5 resultswithin the time period is included. Component Value Ref Range Sodium 137 135 - 148 mEq/L Potassium 4.2 3.5 - 5.0 mEq/L Chloride 95 (L) 98 - 112 mEq/L CO2 25 24 - 31 mEq/L Anion gap 17@ANIO (H) 7 - 15 mEq/L BUN 24 (H) 8 - 23 mg/dL Creatinine 4.4 (H) 0.7 - 1.2 mg/dL Glucose 86 65 - 99 mg/dL Calcium 9.5 8.8 - 10.2 mg/dL Specimen Performing Laboratory Plasma specimen [facility] DEPARTMENT OF PATHOLOGY AND [address] [address] Transfuse RBC (10/11/2017 4:15 PM)Anti Xa, unfractionated (10/11/2017 11:30 AM) Only the most recent of3 resultswithin the time period is included. Component Value Ref Range Anti Xa, unfractionated 0.44Comment: Therapeutic Range: 0.30 - 0.70 0.30 - 0.70 U/mL U/mL Specimen Performing Laboratory Blood [facility] DEPARTMENT OF PATHOLOGY AND GENOMIC MEDICINE [address] [place] [address] NM Lung Ventilation Perfusion (10/11/2017 9:13 AM) Specimen Performing Laboratory [facility] [address] [place] [address] Narrative CLINICAL HISTORY: dvtsrule out PE TECHNIQUE: The patient breathed 15-20 mCi of xenon-133 gas through a closed ventilation system while dynamic imaging of the lungs was performed in the posterior and anterior projections. The patient was then injected with 5 mCi of [id number]-RUP intravenously, followed by imaging of the lungs in anterior, posterior, and oblique projections. FINDINGS: Linear, nonsegmental perfusion defect along the left major fissure suggests fluid or thickening. Minimally heterogeneous ventilation and perfusion elsewhere. IMPRESSION: Low Probability for pulmonary embolism. [facility]-[id number] Procedure Note Interface, Radiology Results Incoming - 10/11/2017 10:02 AM CDT CLINICAL HISTORY: dvts rule out PE TECHNIQUE: The patient breathed 15-20 mCi of xenon-133 gas through a closed ventilation system while dynamic imaging of the lungs was performed in the posterior and anterior projections. The patient was then injected with 5 mCi of tzyuiipdhe-89m-CNU intravenously, followed by imaging of the lungs in anterior, posterior, and oblique projections. FINDINGS: Linear, nonsegmental perfusion defect along the left major fissure suggests fluid or thickening. Minimally heterogeneous ventilation and perfusion elsewhere. IMPRESSION: Low Probability for pulmonary embolism. [facility]-[id number] Pv vein mapping upper extremity (10/10/2017 6:36 PM) Specimen Performing Laboratory [facility] [address] [place], [place] [id number] Narrative Vascular Ultrasound Laboratory Upper Extremity Venous Report [address] [place] [address].Name:PRABHU INTERIANO Veronica.ID:[id number] .Date: 10/10/2017Refer.MD:DWAINE BARNES MD Exam Time: 4:54:00 PMStudy Type:UE Venous DOBAge:1930,87Y Sex: MALE Sonogrphr: Tiesha Soto. Stat.:Inpatient Room:[place] [address]- TapeVol: GRICEL CPT - 4: G0365 Echo Event ID:[id number] Order ID:[id number] Reason for Study:Pre-operative vein mapping for dialysis access creation. History of ESRD with right chest TDC. Procedures:Colorflow, Grayscale/2D, Pulsed wave Doppler Race:B SUMMARY: DUPLEX SCAN OBSERVATIONS Right Left IJObstructed Normal SubclavianNot Visualized Normal AxillaryNot Visualized Normal BrachialObstructed Normal BasilicObstructed Small CephalicNot Visualized Not Visualized RIGHT: The internal jugular vein, one of the paired brachial veins and basilic vein in the distal upper arm is non-compressible with echogenic material filling the lumen and colorflow and Doppler signals are absent. There is normal compressibility with colorflow and Doppler signals are present in the remaining visualized veins. LEFT: There is normal compressibility and no evidence of echogenic material noted within the lumen of the visualized veins. Colorflow and Doppler signals are normal. PRELIMINARY FINDINGS 1. Total deep venous thrombosis of the right internal jugular vein. 2. Total deep venous thrombosis of one of the paired brachial veins. 3. Obstructive superficial venous of the basilic vein in the distal upper arm. Results given to Anh at 6:15 pm on 10/10/17. PHYSICIAN INTERPRETATION Venous examination of the both upper extremities and neck demonstrateddeep venous thrombosis of the right internal jugular vein andin one of the paired brachial veins and a superficial venous of the basilic vein in the distal upper arm. MEASUREMENTS: UEVEINS Right Basilic Upper Arm Prox Basilic Upper A0.17 cm Basilic Upper A1.28 cm Left Basilic Upper Arm Prox Basilic Upper A0.19 cm Basilic Upper A1.11 cm Right Basilic Upper Arm Mid Basilic Upper A0.41 cm Basilic Upper A0.69 cm Left Basilic Upper Arm Mid Basilic Upper A0.19 cm Basilic Upper A1.18 cm Right Basilic Upper Arm Dist Basilic Upper A 0.3 cm Basilic Upper A0.54 cm Left Basilic Upper Arm Dist Basilic Upper A0.17 cm Basilic Upper A1.05 cm Right Basilic Antecubital Fossa Basilic Antecub0.19 cm Basilic Antecub0.51 cm Left Basilic Antecubital Fossa Basilic Antecub0.12 cm Basilic Antecub1.05 cm Right Brachial Vein Antecube Brachial Vein A0.37 cm Brachial Vein A1.31 cm Left Brachial Vein Antecube Brachial Vein A 0.3 cm Brachial Vein A1.52 cm Right Brachial Artery Brachial Artery0.42 cm Left Brachial Artery Brachial Artery0.48 cm Right Radial Artery Radial Artery A0.18 cm Left Radial Artery Radial Artery A0.15 cm Right Ulnar Artery Ulnar Artery AP0.08 cm Left Ulnar Artery Ulnar Artery AP 0.1 cm Signed 10/11/2017 05:45 AM Horacio Neal MD, RPVI Procedure Note Interface, Radiology Results In - 10/11/2017 5:46 AM CDT Vascular Ultrasound Laboratory Upper Extremity Venous Report [address] [place] [address] Pat.Name: PRABHU INTERIANO.ID: [id number] .Date: 10/10/2017 Refer.MD: DWAINE BARNES MD Exam Time: 4:54:00 PM Study Type:UE Venous Age: 1 1930,87Y Sex: MALE Sonogrphr: ALAYNA Soto. Stat.:Inpatient Room: [address] Tape Vol: RF, CPT - 4: G0365 Echo Event ID:[id number] Order ID: [id number] Reason for Study:Pre-operative vein mapping for dialysis access creation. History of ESRD with right chest TDC. Procedures:Colorflow, Grayscale/2D, Pulsed wave Doppler Race: B SUMMARY: DUPLEX SCAN OBSERVATIONS Right Left IJ Obstructed Normal Subclavian Not Visualized Normal Axillary Not Visualized Normal Brachial Obstructed Normal Basilic Obstructed Small Cephalic Not Visualized Not Visualized RIGHT: The internal jugular vein, one of the paired brachial veins and basilic vein in the distal upper arm is non-compressible with echogenic material filling the lumen and colorflow and Doppler signals are absent. There is normal compressibility with colorflow and Doppler signals are present in the remaining visualized veins. LEFT: There is normal compressibility and no evidence of echogenic material noted within the lumen of the visualized veins. Colorflow and Doppler signals are normal. PRELIMINARY FINDINGS 1. Total deep venous thrombosis of the right internal jugular vein. 2. Total deep venous thrombosis of one of the paired brachial veins. 3. Obstructive superficial venous of the basilic vein in the distal upper arm. Results given to Anh at 6:15 pm on 10/10/17. PHYSICIAN INTERPRETATION Venous examination of the both upper extremities and neck demonstrated deep venous thrombosis of the right internal jugular vein and in one of the paired brachial veins and a superficial venous of the basilic vein in the distal upper arm. MEASUREMENTS: UEVEINS Right Basilic Upper Arm Prox Basilic Upper A 0.17 cm Basilic Upper A 1.28 cm Left Basilic Upper Arm Prox Basilic Upper A 0.19 cm Basilic Upper A 1.11 cm Right Basilic Upper Arm Mid Basilic Upper A 0.41 cm Basilic Upper A 0.69 cm Left Basilic Upper Arm Mid Basilic Upper A 0.19 cm Basilic Upper A 1.18 cm Right Basilic Upper Arm Dist Basilic Upper A 0.3 cm Basilic Upper A 0.54 cm Left Basilic Upper Arm Dist Basilic Upper A 0.17 cm Basilic Upper A 1.05 cm Right Basilic Antecubital Fossa Basilic Antecub 0.19 cm Basilic Antecub 0.51 cm Left Basilic Antecubital Fossa Basilic Antecub 0.12 cm Basilic Antecub 1.05 cm Right Brachial Vein Antecube Brachial Vein A 0.37 cm Brachial Vein A 1.31 cm Left Brachial Vein Antecube Brachial Vein A 0.3 cm Brachial Vein A 1.52 cm Right Brachial Artery Brachial Artery 0.42 cm Left Brachial Artery Brachial Artery 0.48 cm Right Radial Artery Radial Artery A 0.18 cm Left Radial Artery Radial Artery A 0.15 cm Right Ulnar Artery Ulnar Artery AP 0.08 cm Left Ulnar Artery Ulnar Artery AP 0.1 cm Signed 10/11/2017 05:45 AM Horacio Neal MD, RPVI PV duplex venous lower extremity (10/10/2017 6:36 PM) Specimen Performing Laboratory [facility] [address] [place] [address] Narrative Vascular Ultrasound Laboratory Lower Extremity Venous Report [address]Name:PRABHU INTERIANO Pat.ID:[id number] .Date: 10/10/2017Refer.MD:DWAINE BARNES MD Exam Time: 5:25:00 PMStudy Type:LE Venous DOBAge:1930,87Y Sex: MALE Sonogrphr: Flora Bosch RVTPat. Stat.:Inpatient Room:[address] TapeVol: RF, CPT - 4: [address] Echo Event ID:[id number] Order ID:[id number] Reason for Study:Bilateral leg edema and pain. Procedures:Colorflow, Grayscale/2D, Pulsed wave Doppler Race:B SUMMARY: DUPLEX SCAN OBSERVATIONS Deep VeinsSuperficial Veins RightLeft RightLeft GSV (prox) NormalNormal CFV Subtotal Subtotal (above knee) Femoral Obstructed Obstructed GSV (dist) Normal Not Visualized Profunda Obstructed Normal (below knee) Popliteal Obstructed Obstructed PT (prox) Obstructed NormalSSV Obstructed Normal PT (dist) Obstructed Normal Peroneal Not Visualized Not Visualized RIGHT: The common femoral vein is dilated and partially compressible with echogenic material filling the lumen and decreased colorflow and Doppler signals are present. The femoral vein, profunda femoris, popliteal, smaller saphenous vein, posterior tibial vein are non-compressible with echogenic material filling the lumen and colorflow and Doppler signals are absent. There is normal compressibility with colorflow and Doppler signals noted in the greater saphenous vein above and below the knee. LEFT:The common femoral vein is dilated and partially compressible with echogenic material filling the lumen and decreased colorflow and Doppler signals are present. The femoral vein, popliteal, smaller saphenous vein are non-compressible with echogenic material filling the lumen and colorflow and Doppler signals are absent. There is normal compressibility with colorflow and Doppler signals noted in the greater saphenous vein above the knee. PRELIMINARY FINDINGS 1. Near-occlusive deep venous thrombosis of the common femoral vein, bilaterally. 2. Total deep venous thrombosis of the femoral vein and popliteal vein, bilaterally. 3. Total deep venous thrombosis of the right profunda femoris vein and posterior tibial veins. 4. Total superficial venous thrombosis of the smaller saphenous vein, bilaterally. Report Given to MALI Kamara at 6:15 pm on 10/10/17. PHYSICIAN INTERPRETATION Venous examination of the both lower extremities demonstrated bilateral extensive venous thrombosis . Signed 10/11/2017 03:09 AM Horacio Neal MD, RPVI Procedure Note Interface, Radiology Results In - 10/11/2017 3:09 AM CDT Vascular Ultrasound Laboratory Lower Extremity Venous Report [address] [place] [address] Pat.Name: PRABHU INTERIANO Pat.ID: [id number] .Date: 10/10/2017 Refer.MD: DWAINE BARNES MD Exam Time: 5:25:00 PM Study Type:LE Venous Age: 1 1930,87Y Sex: MALE Sonogrphr: Flora Bosch RVT Pat. Stat.:Inpatient Room: J8-0801-A Tape Vol: RF, CPT - 4: 23706 Echo Event ID:[id number] Order ID: [id number] Reason for Study:Bilateral leg edema and pain. Procedures:Colorflow, Grayscale/2D, Pulsed wave Doppler Race: B SUMMARY: DUPLEX SCAN OBSERVATIONS Deep Veins Superficial Veins Right Left Right Left GSV (prox) Normal Normal CFV Subtotal Subtotal (above knee) Femoral Obstructed Obstructed GSV (dist) Normal Not Visualized Profunda Obstructed Normal (below knee) Popliteal Obstructed Obstructed PT (prox) Obstructed Normal SSV Obstructed Normal PT (dist) Obstructed Normal Peroneal Not Visualized Not Visualized RIGHT: The common femoral vein is dilated and partially compressible with echogenic material filling the lumen and decreased colorflow and Doppler signals are present. The femoral vein, profunda femoris, popliteal, smaller saphenous vein, posterior tibial vein are non-compressible with echogenic material filling the lumen and colorflow and Doppler signals are absent. There is normal compressibility with colorflow and Doppler signals noted in the greater saphenous vein above and below the knee. LEFT: The common femoral vein is dilated and partially compressible with echogenic material filling the lumen and decreased colorflow and Doppler signals are present. The femoral vein, popliteal, smaller saphenous vein are non-compressible with echogenic material filling the lumen and colorflow and Doppler signals are absent. There is normal compressibility with colorflow and Doppler signals noted in the greater saphenous vein above the knee. PRELIMINARY FINDINGS 1. Near-occlusive deep venous thrombosis of the common femoral vein, bilaterally. 2. Total deep venous thrombosis of the femoral vein and popliteal vein, bilaterally. 3. Total deep venous thrombosis of the right profunda femoris vein and posterior tibial veins. 4. Total superficial venous thrombosis of the smaller saphenous vein, bilaterally. Report Given to MAIL Kamara at 6:15 pm on 10/10/17. PHYSICIAN INTERPRETATION Venous examination of the both lower extremities demonstrated bilateral extensive venous thrombosis . Signed 10/11/2017 03:09 AM Horacio Neal MD, RPVI Prepare RBC, 2 Units (10/10/2017 10:22 AM) Component Value Ref Range Product name Apheresis -1 LR #2 Unit number [id number] Product code [id number] Dispense status Transfused Blood expiration date Blood type code 0600 Blood type A NEGATIVE Product name Red Blood Cells -1, Leukored Unit number [id number] Product code [id number] Dispense status Transfused Blood expiration date Blood type code 6200 Blood type A POSITIVE Specimen Performing Laboratory [facility] PATHOLOGY [address] [address] Type and screen (10/10/2017 10:22 AM) Component Value Ref Range ABO grouping A Rh type POS Antibody screen (gel) NEG Specimen Performing Laboratory Blood [facility] PATHOLOGY [address] [address] Smear review (10/10/2017 8:25 AM) Component Value Ref Range Platelet slide review Decreased (A) Anisocytosis Moderate Polychromasia Moderate Ovalocytes Moderate Toxic granulation Slight Specimen Performing Laboratory [facility] PATHOLOGY [address] [address] Hepatitis B surface antigen (10/09/2017 1:27 PM) Component Value Ref Range Hepatitis B surface Ag Non-reactive Non-reactive Specimen Performing Laboratory Blood [facility] DEPARTMENT OF PATHOLOGY AND [facility] MEDICINE [address] [place] [phone] Blood culture, aerobic & anaerobic (10/09/2017 10:18 AM) Component Value Ref Range Blood culture isolate No growth after 5 days of incubation. Comment: Specimen Information Specimen Source: Blood Specimen Site: Arm, right Specimen Performing Laboratory Blood - Arm, right [facility] [address] [address] Lactic acid level (10/09/2017 10:18 AM) Component Value Ref Range Lactic acid 1.3 0.5 - 2.2 mmol/L Specimen Performing Laboratory Plasma specimen [facility] DEPARTMENT OF PATHOLOGY AND [address] [address] XR Ankle 2 Vw Left (10/08/2017 9:43 PM) Specimen Performing Laboratory [facility] [address] [place] [address] Narrative PROCEDURE:XR ANKLE 2 VW LEFT CLINICAL HISTORY:JOINT PAINANKLE, LIMITED MOVEMENTANKLE COMPARISON:None. TECHNIQUE: 3 views of the left ankle were performed in the AP, internal oblique, and lateral projections. FINDINGS: No acute fracture, dislocation, periosteal reaction, or bone destruction is demonstrated of the bones about the ankle. The ankle mortise is preserved. Soft tissue swelling is seen of the medial and lateral malleolus. Incidental note of a plantar calcaneal spur is seen. IMPRESSION: No acute bony abnormality. Soft tissue swelling. [facility]-[id number] . Procedure Note Interface, Radiology Results Incoming - 10/08/2017 10:06 PM CDT PROCEDURE: XR ANKLE 2 VW LEFT CLINICAL HISTORY: JOINT PAIN ANKLE, LIMITED MOVEMENT ANKLE COMPARISON: None. TECHNIQUE: 3 views of the left ankle were performed in the AP, internal oblique, and lateral projections. FINDINGS: No acute fracture, dislocation, periosteal reaction, or bone destruction is demonstrated of the bones about the ankle. The ankle mortise is preserved. Soft tissue swelling is seen of the medial and lateral malleolus. Incidental note of a plantar calcaneal spur is seen. IMPRESSION: No acute bony abnormality. Soft tissue swelling. [facility]-[id number] . IR Tunneled Dialysis Catheter Placement (10/08/2017 5:34 PM) Specimen Performing Laboratory [facility] [address] [place] [address] Narrative Procedure: Placement of tunneled dialysis catheter Clinical History: End-stage renal disease Sedation: Versed and fentanyl were utilized for monitored conscious sedation during the procedure. The patient was transferred to the recovery room at the end of the procedure for further monitoring. Gimj-yr-uzdz time 21 minutes Anesthesia: Local Radiation dose: Ka,r=3 mGy Technique: After discussing the risks and benefits of the procedure and moderate conscious sedation with the patient's power of health insurance agent they agreed to the procedure. All elements of maximal sterile barrier technique were followed. A recorded image of the patent right internal jugular vein was obtained. After prepping and draping the right side of the neck and chest, local anesthesia was administered and the internal jugular vein accessed with a 21-gauge needle under real-time ultrasound guidance. A 0.018 guidewire was advanced to the right atrium under fluoroscopy. Local anesthesia was then administered from the infraclavicular region to the initial puncture site. The 23 cm Arrow Edge dialysis catheter was brought through the tunnel. A 5 Kinyarwanda catheter was placed over the initially placed guidewire and an Amplatz guidewire advanced into the inferior vena cava. After dilatation , the dialysis catheter was placed with its tip in the right atrium. The lumens aspirated and injected easily. They were flushed with heparin. The initial puncture site was sealed with Dermabond and the catheter exit site closed with 2-0 silk suture. Complications: None Impression: Successful placement of a right internal jugular vein tunneled dialysis catheter as described above. Blood Loss: Less than 1 mL [facility]-[id number] Procedure Note [facility], Radiology Results Incoming - 10/08/2017 5:43 PM CDT Procedure: Placement of tunneled dialysis catheter Clinical History: End-stage renal disease Sedation: Versed and fentanyl were utilized for monitored conscious sedation during the procedure. The patient was transferred to the recovery room at the end of the procedure for further monitoring. [id number] time 21 minutes Anesthesia: Local Radiation dose: Ka,r=3 mGy Technique: After discussing the risks and benefits of the procedure and moderate conscious sedation with the patient's power of health insurance agent they agreed to the procedure. All elements of maximal sterile barrier technique were followed. A recorded image of the patent right internal jugular vein was obtained. After prepping and draping the right side of the neck and chest, local anesthesia was administered and the internal jugular vein accessed with a 21- gauge needle under real-time ultrasound guidance. A 0.018 guidewire was advanced to the right atrium under fluoroscopy. Local anesthesia was then administered from the infraclavicular region to the initial puncture site. The 23 cm Arrow Edge dialysis catheter was brought through the tunnel. A 5 Kinyarwanda catheter was placed over the initially placed guidewire and an Amplatz guidewire advanced into the inferior vena cava. After dilatation , the dialysis catheter was placed with its tip in the right atrium. The lumens aspirated and injected easily. They were flushed with heparin. The initial puncture site was sealed with Dermabond and the catheter exit site closed with 2-0 silk suture. Complications: None Impression: Successful placement of a right internal jugular vein tunneled dialysis catheter as described above. Blood Loss: Less than 1 mL [facility]-[id number] ECG 12 lead (10/08/2017 1:12 PM)Only the most recent of2 resultswithin the time period is included. Component Value Ref Range Ventricular rate 104 Atrial rate 104 AK interval 94 QRSD interval 176 QT interval 440 QTC interval 578 P axis 1 106 QRS axis 1 -82 T wave axis 98 EKG impression Electronic ventricular pacemaker-No previous ECGs available- Specimen Performing Laboratory [facility] [address] [place] [id number] XR Chest 1 Vw Portable (10/08/2017 1:09 PM) Specimen Performing Laboratory [facility] [address] [place] [id number] Narrative EXAMINATION:XR CHEST 1 VW PORTABLE CLINICAL HISTORY:right chest line came out COMPARISON:None IMPRESSION: Lungs are clear without infiltrate, pleural effusion or pneumothorax. Cardiomediastinal silhouette is mildly enlarged. Left chest pacer with lead tips in RA and RV. Focal arch calcification. Osseous degenerative changes. [facility]-[id number] Procedure Note Interface, Radiology Results Incoming - 10/08/2017 1:37 PM CDT EXAMINATION: XR CHEST 1 VW PORTABLE CLINICAL HISTORY: right chest line came out COMPARISON: None IMPRESSION: Lungs are clear without infiltrate, pleural effusion or pneumothorax. Cardiomediastinal silhouette is mildly enlarged. Left chest pacer with lead tips in RA and RV. Focal arch calcification. Osseous degenerative changes. [facility]-[id number] Troponin (10/08/2017 12:47 PM) Component Value Ref Range Troponin <0.30 0.00 - 0.30 ng/mL Comment: 0.30 - 1.49 ng/mlMay indicate increased risk of acute coronary syndrome. >=1.5 ng/mlConsistent with acute myocardial infarction. The diagnostic value of a single normal or non-diagnostic result is questionable.Serial samples at 2-6 hour intervals are required to rule out acute myocardial injury. Specimen Performing Laboratory Plasma specimen [facility] DEPART[facility] OF PATHOLOGY AND GENOMIC MEDICINE [address] [place] [id number] Partial thromboplastin time, activated (10/08/2017 12:47 PM) Component Value Ref Range PTT 39.1 (H) 23.0 - 36.0 sec Comment: PTT therapeutic range for unfractionated heparin is 61.0-112.0 seconds which corresponds to Anti-Xa 0.3-0.7 U/ml. Specimen Performing Laboratory Blood [facility] DEPARTMENT OF PATHOLOGY AND GENOMIC MEDICINE [address] [place] [id number] B natriuretic peptide (10/08/2017 12:47 PM) Component Value Ref Range BNP 164 (H) 0 - 100 pg/mL Specimen Performing Laboratory Blood [facility] DEPARTMENT OF PATHOLOGY AND GENOMIC MEDICINE [address] [place] [address] ECG ED Preliminary Interpretation - NOT AN ORDER (10/08/2017 11:39 AM) Best Foley MD 10/10/2017 12:05 AM ECG ED Preliminary Interpretation - Not an Order Performed by: ADRIEN FOLEY Authorized by: ADRIEN FOLEY ECG reviewed by ED Physician in the absence of a code enforcement officer: yes Previous ECG: Previous ECG:Unavailable Interpretation: Interpretation: abnormal Rate: ECG rate:104 Rhythm: Rhythm: paced Pacing: Type of pacing:Ventricular QRS: QRS axis:Normal QRS intervals:Normal ST segments: ST segments:Normal T waves: T waves: normal after 10/14/2016 Insurance Payer Benefit Plan / Group Subscriber ID Type Phone Address MEDICARE MEDICARE PART A AND B xxxxxxxxxx Medicare [place], [place] Home: [id number] [id number] [place], [place] [phone]
--- NOTE | 2017-10-15 17:01 | RAD REPORT ---
EXAM DESCRIPTION: Edmundo Single View10/15/2017 4:44 pm CLINICAL HISTORY: sob COMPARISON: September 10, 2017 FINDINGS: The lungs appear clear of acute infiltrate. The heart is mildly enlarged. Pacemaker leads are in place. Central venous catheter remains in place IMPRESSION: No acute abnormalities displayed
--- NOTE | 2017-10-15 17:53 | RAD REPORT ---
EXAM DESCRIPTION: CT - Head Brain Wo Cont - 10/15/2017 5:46 pm CLINICAL HISTORY: Hypotension, altered consciousness. COMPARISON: 09/07/2017 TECHNIQUE: All CT scans are performed using dose optimization technique as appropriate and may inclu de automated exposure control or mA/KV adjustment according to patient size. FINDINGS: No intracranial hemorrhage, hydrocephalus or extra-axial fluid collection.Moderate general ized brain atrophy is present with moderate periventricular and deep white matter chronic microvascul ar ischemic changes.No areas of brain edema or evidence of midline shift. The paranasal sinuses and mastoids are clear. The calvarium is intact. IMPRESSION: No acute intracranial abnormality.
[2017-10-15 19:08] LABS: Bicarbonate 26 mEq/L (21-31); Glucose Level 87 mg/dL (65-120); Potassium 5.1 mEq/L (3.6-5.0); Sodium Level 136 mEq/L (135-145)
[2017-10-15 19:09] LABS: BUN Blood Urea Nitrogen 34 mg/dL (6-20)
[2017-10-15 19:15] LABS: Protime INR 1.64
[2017-10-15 19:28] LABS: Absolute Lymphocytes (CBC) 0.6 K/uL (0.7-4.9); Absolute Monocytes 1.3 K/uL (0.1-1.3); Absolute Neutrophil 17.4 K/uL (1.8-8.0); Basophils % 0.3 % (0-1.3); Hematocrit 31.4 % (39.6-49.0); Lymphocytes % 2.9 % (15.3-44.8); MCH 28.1 pg (27.0-35.0); MCV 91.7 fL (80-100); MPV 8.1 fL (7.6-11.3); Monocytes % 6.9 % (3.3-12.3); RBC Red Blood Cell Count 3.42 M/uL (4.33-5.43)
[2017-10-15] MEDS ORDERED: NA CHLORIDE 0.9% 250 ML ONE (19:28)
--- NOTE | 2017-10-15 20:09 | ER ---
Nurse's Notes [facility] Name: Rik Mauro Age: 87 yrs Sex: Male : 1930 Arrival Date: 10/15/2017 Time: 16:21 Bed 28 Private MD: Diagnosis: Altered mental status, unspecified;Cellulitis;End stage renal disease Presentation: 10/15 16:20 Presenting complaint: EMS states: patient was being dialyzed at [facility]. They removed kr2 approximately 450mL out of 750mL goal of fluid. Patient became severely mentally altered and blood pressure dropped to 90/50. He was recently discharge from [facility] for the same reason. He reportedcly has full thickness pressure wounds to his buttock and bilateral heels. Transition of care: Patient brought via EMS from dialysis. He resides at [facility]. Onset of symptoms was October 15, 2017. Risk Assessment: Do you want to hurt yourself or someone else? Patient reports no desire to harm self or others. Initial Sepsis Screen: Does the patient meet any 2 criteria? RR > 20 per min. Altered Mental Status. Does the patient have a suspected source of infection? Yes: Skin breakdown/wound. Care prior to arrival: None. 16:20 Method Of Arrival: EMS: [facility] kr2 16:20 Acuity: CHAVA 3 kr2 Triage Assessment: 16:20 General: Appears in no apparent distress. uncomfortable, well groomed, Behavior is kr2 calm, cooperative. Pain: Unable to use pain scale. Does not appear to understand pain scale. Patient appears to be grimacing, to be moaning. Historical: - Allergies: 17:13 No Known Allergies; kr2 - Home Meds: 23:05 magnesium oxide 400 mg Oral cap [Active]; metolazone 5 mg Oral tab 1 tab once daily kr2 [Active]; citalopram 10 mg tab 1 tab once daily [Active]; carvedilol 25 mg Oral tab 1 tab 2 times per day [Active]; acetaminophen 325 mg Oral tab 2 tabs every 4 hours [Active]; acetaminophen 80 mg Oral chew [Active]; clopidogrel 75 mg oral tab 1 tab once daily [Active]; Colace 50 mg oral cap 1 cap 2 times per day [Active]; Fidelia-Valentino 0.8 mg oral tab daily [Active]; - PMHx: 23:05 Anemia; BRADYCARDIA; Cataracts; CHF; DVT; EDEMA; ESRD; Gout; Hypertension; Prostate 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 - Social history:: Smoking status: unknown. - Family history:: not pertinent. - Ebola Screening: : No symptoms or risks identified at this time. - Hospitalizations: : No recent hospitalization is reported. Screenin:44 Abuse screen: Denies threats or abuse. Denies injuries from another. Nutritional kr2 screening: No deficits noted. Tuberculosis screening: No symptoms or risk factors identified. Fall Risk Secondary diagnosis (15 points) impaired mobility, IV access (20 points). Assessment: 16:20 Cardiovascular: Rhythm is Respiratory: Airway is patent Respiratory effort is even, kr2 unlabored, Respiratory pattern is regular, symmetrical, Breath sounds are clear bilaterally. 16:20 Pain: Unable to use pain scale. Does not appear to understand pain scale. Patient kr2 appears to be grimacing, to be moaning. Neuro: Level of Consciousness is awake, alert, Oriented to none. GI: Abdomen is round non-distended. : Parent/caregiver report the patient having Patient is on dialysis. EENT: Oral mucosa is dry. Derm: Skin with poor turgor Skin is dry, flaking Skin is pink, Skin temperature is warm Wound noted bilateral heels and sacrum Wound is pressure ulcers. Musculoskeletal: Circulation, motion, and sensation intact. Range of motion: limited in all extremities. 18:10 Reassessment: Patient appears in no apparent distress at this time. Patient with poor kr2 venous access. Myself, polysomnography tech and phlebotomists from lab attempted. Dr. Langston notified. Jackie Ulrich RN placed 20g to right AC using ultrasound guidance. Very small amount of blood was obtained. 18:20 Reassessment: Dr. Langston at bedside. Inserted 20g to LAC using ultrasound. kr2 19:00 Reassessment: Assisted Dr. Langston with examination of wounds. Bilateral heels with kr2 pressure ulcers. Skin is intact but with dark black boggy areas to heels. Skin to sacral area is red and has open areas with foul smelling, yellow/green discharge. 19:15 Reassessment: Patient appears in no apparent distress at this time. Patient and/or kr2 family updated on plan of care and expected duration. Pain level reassessed. Wound to sacrum cleansed with Hibiclens and rinsed with saline. Applied petroleum gauze, covered with 4x4's and secured with tape. Bilateral heels cleansed with saline, dried and covered with gauze and wrapped with Kerlix. 21:54 Reassessment: Patient appears in no apparent distress at this time. Patient and/or kr2 family updated on plan of care and expected duration. Pain level reassessed. Attempted x 2 to call report to receiving nurse, nurse unavailable. Spoke with Oumou and she states she will have the nurse call me back. Vital Signs: 16:20 BP 108 / 43; Pulse 126; Resp 22; Temp 98.8(A); Pulse Ox 96% on 3 lpm NC; kr2 20:06 BP 108 / 60; Pulse 104; Resp 20; Pulse Ox 95% on 3 lpm NC; kr2 21:00 BP 107 / 60; Pulse 105; Resp 17; Pulse Ox 99% on 3 lpm NC; kr2 22:00 BP 119 / 53; Pulse 109; Resp 19; Pulse Ox 97% on 3 lpm NC; kr2 23:00 BP 110 / 60; Pulse 110; Resp 20; Pulse Ox 98% on 3 lpm NC; kr2 Vitals: 16:20 Cardiac Rhythm Assessment Paced. kr2 ED Course: 16:20 Arm band placed on left wrist. kr2 16:21 Patient arrived in ED. ss 16:24 Dane Telles MD is Attending Physician. debby 16:25 Patient has correct armband on for positive identification. Bed in low position. Call kr2 light in reach. Side rails up X2. engine monitor on. Pulse ox on. NIBP on. Door closed. Warm blanket given. Head of bed elevated. 16:27 Attending Physician role handed off by Dane Telles MD rn 16:27 Chriss Langston MD is Attending Physician. rn 16:33 EKG done, by loss control technician. reviewed by Chriss Langston MD. sm3 16:35 Missed attempt(s): 22 gauge in right antecubital area. Bleeding controlled, band aid kr2 applied, catheter tip intact. 16:43 Triage completed. kr2 16:43 X-ray completed. Portable x-ray completed in exam room. Patient tolerated procedure bb2 well. 16:44 XRAY Chest (1 view) In Process Unspecified. EDMS 17:09 Dee Serna, RN is Primary Nurse. kr2 17:[address] via stretcher. ky 17:45 CT Head Brain wo Cont In Process Unspecified. EDMS 17:46 CT completed. Patient moved back from CT. vm2 18:20 Missed attempt(s): 20 gauge in right antecubital area. Bleeding controlled, band aid sv applied, catheter tip intact. 20:08 Misty Kirby MD is Hospitalizing Provider. rn 23:06 No provider procedures requiring assistance completed. Patient admitted, IV remains in kr2 place. Administered Medications: 19:35 Drug: NS 0.9% 250 ml Route: IV; Rate: bolus; Site: left antecubital; kr2 21:00 Follow up: Response: No adverse reaction; IV Status: Completed infusion kr2 21:32 Drug: vancoMYCIN 1 grams Route: IVPB; Infused Over: 2 hrs; Site: right antecubital; kr2 23:00 Follow up: IV Status: Infusion continued upon admission kr2 Point of Care Testing: Blood Glucose: 16:55 Blood Glucose: 80 mg/dL; jb5 Ranges: Outcome: 20:09 Decision to Hospitalize by Provider. rn 23:06 Admitted to Tele accompanied by tech, family with patient, via stretcher, room 426, kr2 with chart, Report called to Juliann 23:06 Condition: stable 23:07 Instructed on the need for admit, Demonstrated understanding of instructions. kr2 23:09 Patient left the ED. kr2 Signatures: Dispatcher [employer] EDMS Jackie Ulrich RN RN sv Anderson, Corey, MD MD cha Nieto, Roman, MD MD rn Smirch, Shelby, RN RN ss Jordan, Nathan nj Broussard, Jennifer jb5 Wendy Harrison 2 Dee Serna RN RN 2 Salima Rojas 2 Marlee Mercedes 3 Corrections: (The following items were deleted from the chart) 18:10 16:20 Respiratory: Airway is patent Respiratory effort is even, unlabored, Respiratory kr2 pattern is regular, symmetrical, Breath sounds are clear bilaterally. kr2 20:11 16:20 BP 108 / 43; Pulse 126bpm; Resp 22bpm; Pulse Ox 96% RA; Temp 98.8F Axillary; kr2 kr2 23:09 16:20 Derm: Skin with poor turgor Skin is dry, flaking Skin is pink, Skin temperature kr2 is warm Wound noted bilateral heels and buttock Wound is pressure ulcers kr2
--- NOTE | 2017-10-15 20:09 | EDPHYS ---
Physician Documentation [facility] Name: Rik Mauro Age: 87 yrs Sex: Male : 1930 Arrival Date: 10/15/2017 Time: 16:21 Bed 28 Private MD: ED Physician Chriss Langston HPI: 10/15 16:27 This 87 yrs old Black Male presents to ER via Unassigned with complaints of AMS. rn 16:35 The patient has shortness of breath. rn 16:35 The patient presents with confusion, decreased responsiveness, disorientation. Onset: rn The symptoms/episode began/occurred at an unknown time. Possible causes: unknown. Associated signs and symptoms: Pertinent positives: confusion. The patient has experienced similar episodes in the past. Just discharged from [facility] a week ago, presents from dialysis for confusion, got longterm through dialysis, was hypotensive, now normotensive, no known fever, no trauma, unclear when onset of confusion/ams but paperwork from [facility] describe similar neuro exam as current.. Historical: - Allergies: 17:13 No Known Allergies; kr2 - Home Meds: 23:05 magnesium oxide 400 mg Oral cap [Active]; metolazone 5 mg Oral tab 1 tab once daily kr2 [Active]; citalopram 10 mg tab 1 tab once daily [Active]; carvedilol 25 mg Oral tab 1 tab 2 times per day [Active]; acetaminophen 325 mg Oral tab 2 tabs every 4 hours [Active]; acetaminophen 80 mg Oral chew [Active]; clopidogrel 75 mg oral tab 1 tab once daily [Active]; Colace 50 mg oral cap 1 cap 2 times per day [Active]; Fidelia-Valentino 0.8 mg oral tab daily [Active]; - PMHx: 23:05 Anemia; BRADYCARDIA; Cataracts; CHF; DVT; EDEMA; ESRD; Gout; Hypertension; Prostate 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 - Social history:: Smoking status: unknown. - Family history:: not pertinent. - Ebola Screening: : No symptoms or risks identified at this time. - Hospitalizations: : No recent hospitalization is reported. ROS: 16:37 Unable to obtain ROS due to altered mental status. rn Exam: 16:37 Constitutional: Thin cachectic male Head/Face: Normocephalic, atraumatic. Eyes: rn Pupils equal round and reactive to light, extra-ocular motions intact. Lids and lashes normal. Conjunctiva and sclera are non-icteric and not injected. Cornea within normal limits. Periorbital areas with no swelling, redness, or edema. ENT: dry MM Neck: Trachea midline, no thyromegaly or masses palpated, and no cervical lymphadenopathy. Supple, full range of motion without nuchal rigidity, or vertebral point tenderness. No Meningismus. Cardiovascular: tachycardic, irregular, no murmur Respiratory: mild tachypnea with bibasilar crackles Abdomen/GI: Soft, non-tender, with normal bowel sounds. No distension or tympany. No guarding or rebound. No evidence of tenderness throughout. Skin: Warm, dry. + pressure ulcers and necrosis of bilateral heals, L>R, + sacral decubitus superficial ulcers with drianage and foul smell. Neuro: Awake, alert, talking, doesn't move legs, in pressure boots, + upper ext contractures Vital Signs: 16:20 BP 108 / 43; Pulse 126; Resp 22; Temp 98.8(A); Pulse Ox 96% on 3 lpm NC; kr2 20:06 BP 108 / 60; Pulse 104; Resp 20; Pulse Ox 95% on 3 lpm NC; kr2 21:00 BP 107 / 60; Pulse 105; Resp 17; Pulse Ox 99% on 3 lpm NC; kr2 22:00 BP 119 / 53; Pulse 109; Resp 19; Pulse Ox 97% on 3 lpm NC; kr2 23:00 BP 110 / 60; Pulse 110; Resp 20; Pulse Ox 98% on 3 lpm NC; kr2 MDM: 16:24 Patient medically screened. debby 16:45 ED course: Family member, I believe to be daughter of patient, reports rapid rn deterioration for 2 months, since started dialysis, not eating, was like this at time of discharge from [facility]. Pt now more alert and talkative since family arrival.. 19:36 Differential Diagnosis: pneumonia, sepsis, volume depletion, cellulitis. Data reviewed: rn vital signs, nurses notes, lab test result(s), radiologic studies, and as a result, I will admit patient. Counseling: I had a detailed discussion with the patient and/or guardian regarding: the historical points, exam findings, and any diagnostic results supporting the discharge/admit diagnosis, lab results, radiology results, the need for further work-up and treatment in the hospital. Admission orders: after a detailed discussion of the patient's condition and case, the admit orders are written by me. 10/15 16:29 Order name: Basic Metabolic Panel; Complete Time: 19:23 rn 10/15 16:29 Order name: BNP; Complete Time: 19: rn 10/15 16:29 Order name: CBC with Diff; Complete Time: 20:05 rn 10/15 16:29 Order name: Magnesium; Complete Time: 19:23 rn 10/15 16:29 Order name: Protime (+inr); Complete Time: 20:05 rn 10/15 16:29 Order name: Ptt, Activated; Complete Time: 20:05 rn 10/15 16:29 Order name: CT Head Brain wo Cont; Complete Time: 17:56 rn 10/15 16:29 Order name: Troponin (emerg Dept Use Only); Complete Time: 19:23 rn 10/15 16:29 Order name: Blood Culture Adult (2) rn 10/15 16:29 Order name: Procalcitonin; Complete Time: 19:05 rn 10/15 16:29 Order name: XRAY Chest (1 view); Complete Time: 17:56 rn 10/15 16:29 Order name: Ketone, Serum; Complete Time: 19:23 rn 10/15 16:29 Order name: EKG; Complete Time: 16:30 rn 10/15 16:29 Order name: Cardiac monitoring; Complete Time: 20:05 rn 10/15 16:29 Order name: EKG - Nurse/Tech; Complete Time: 20:05 rn 10/15 16:29 Order name: IV Saline Lock; Complete Time: 20:05 rn 10/15 16:29 Order name: Labs collected and sent; Complete Time: 20:05 rn 10/15 16:29 Order name: NPO; Complete Time: 20:05 rn 10/15 16:29 Order name: O2 Per Protocol; Complete Time: 20:05 rn 10/15 16:29 Order name: O2 Sat Monitoring; Complete Time: 20:05 rn Administered Medications: 19:35 Drug: NS 0.9% 250 ml Route: IV; Rate: bolus; Site: left antecubital; kr2 21:00 Follow up: Response: No adverse reaction; IV Status: Completed infusion kr2 21:32 Drug: vancoMYCIN 1 grams Route: IVPB; Infused Over: 2 hrs; Site: right antecubital; kr2 23:00 Follow up: IV Status: Infusion continued upon admission kr2 Point of Care Testing: Blood Glucose: 16:55 Blood Glucose: 80 mg/dL; jb5 Ranges: Critical Glucose Levels:Adult <50 mg/dl or >400 mg/dl <40 mg/dl or >180 mg/dl Disposition: 10/15/17 20:09 Hospitalization ordered by Misty Kirby for Inpatient Admission. Preliminary diagnosis are Altered mental status, unspecified, Cellulitis, End stage renal disease. - Bed requested for Telemetry/MedSurg (Inpatient). - Status is Inpatient Admission. kr2 - Condition is Stable. - Problem is new. - Symptoms have improved. UTI on Admission? No Signatures: Dispatcher [employer] EDMS Cindy George RN RN mw Anderson, Corey, MD MD cha Nieto, Roman, MD MD rn Reaves, Karey, RN RN kr2 Corrections: (The following items were deleted from the chart) 19:36 16:37 Constitutional: Thin cachectic male Head/Face: Normocephalic, atraumatic. Eyes: rn Pupils equal round and reactive to light, extra-ocular motions intact. Lids and lashes normal. Conjunctiva and sclera are non-icteric and not injected. Cornea within normal limits. Periorbital areas with no swelling, redness, or edema. ENT: dry MM Neck: Trachea midline, no thyromegaly or masses palpated, and no cervical lymphadenopathy. Supple, full range of motion without nuchal rigidity, or vertebral point tenderness. No Meningismus. Cardiovascular: tachycardic, irregular, no murmur Respiratory: mild tachypnea with bibasilar crackles Abdomen/GI: Soft, non-tender, with normal bowel sounds. No distension or tympany. No guarding or rebound. No evidence of tenderness throughout. Neuro: Awake, alert, talking, doesn't move legs, in pressure boots, + upper ext contractures rn 20:17 20:09 Hospitalization Ordered by Misty Kirby MD for Inpatient Admission. Preliminary mw diagnosis is Altered mental status, unspecified; Cellulitis; End stage renal disease. Bed requested for Telemetry/MedSurg (Inpatient). Status is Inpatient Admission. Condition is Stable. Problem is new. Symptoms have improved. UTI on Admission? No. rn 23:09 20:17 10/15/2017 20:09 Hospitalization Ordered by Misty Kirby MD for Inpatient kr2 Admission. Preliminary diagnosis is Altered mental status, unspecified; Cellulitis; End stage renal disease. Bed requested for Telemetry/MedSurg (Inpatient). Status is Inpatient Admission. Condition is Stable. Problem is new. Symptoms have improved. UTI on Admission? No. mw
--- NOTE | 2017-10-15 21:21 | P.HP ---
Certification for Inpatient Patient admitted to: Inpatient With expected LOS: >2 Midnights Practitioner: I am a practitioner with admitting privileges, knowledge of patient current condition, hospital course, and medical plan of care. Services: Services provided to patient in accordance with Admission requirements found in Title 42 Section 412.3 of the Code of Federal Regulations Patient History Date of Service: 10/15/17 Reason for admission: sepsis History of Present Illness: Mr Mauro is an 87 years old male with history of HTN, ESRD on HD, bed bound, resident of a fci, who was admitted last week at [facility] due to syncopal episode, discharged 3 days ago. According to his daughter the patient was confused and weak at the time of discharge, but this is his baseline lately. Today, while the patient was having HD, he become hypotensive, and had a syncopal episode. Subsequently, the patient was transferred to ED for further evaluation. No known history of fever or chills. Lab work remarkable for leukocytosis 19.2K and elevated procalcitonin. No history of SOB, chest pain , however, he has been coughing more than usual lately. The patient has also pressure ulcers in both heel and sacral area. The patient is also on treatment with Warfarin due to acute left leg DVT. Allergies No Known Allergies Allergy (Verified 07/12/17 06:05) Home Medications: Acetaminophen with Codeine [Acetaminophen-Cod #3 Tablet] 1 each PO Q4HR PRN 10/21 Calcitrol [Rocaltrol*] 0.25 mcg PO DAILY 09/08/17 Clopidogrel Bisulfate [Plavix*] 75 mg PO DAILY 09/08/17 Folic Acid/Vit Bcomp,C [Fidelia-Valentino Tablet] 0.8 mg PO DAILY 09/08/17 Mirtazapine 15 mg PO DAILY 09/08/17 Ondansetron [Zofran (Odt)*] 4 mg PO Q6H PRN 09/08/17 Sodium Bicarbonate 650 mg PO DAILY 09/08/17 Tamsulosin [Flomax*] 2 cap PO DAILY 09/08/17 Amoxicillin/Potassium Clav [Augmentin 500-125 Tablet] 1 each PO DAILY #7 tablet 09/10/17 Benzonatate [Tessalon Perle] 100 mg PO TID PRN #20 cap 09/10/17 Nepro Shake [Nepro*] 237 ml PO DAILY #30 can 09/10/17 - Past Medical/Surgical History Diabetic: No -: ESRD on HD -: HTN -: anemia -: Hx of prostate cancer -: CHF -: DVT -: gout -: Dialysis catheter placement -: Pacemaker - Family History Family History: Reviewed- Non-Contributory - Social History Alcohol use: No CD- Drugs: No Caffeine use: No Place of Residence: [place] Review of Systems 10-point ROS is otherwise unremarkable Physical Examination - Physical Exam General: Alert, In no apparent distress, Confused HEENT: Atraumatic, PERRLA, Mucous membr. moist/pink, EOMI, Sclerae nonicteric Neck: Supple, 2+ carotid pulse no bruit, No LAD, Without JVD or thyroid abnormality Respiratory: Clear to auscultation bilaterally, Normal air movement Cardiovascular: Regular rate/rhythm, Normal S1 S2 Gastrointestinal: Normal bowel sounds, No tenderness Musculoskeletal: No tenderness Integumentary: Skin lesion (sacral area), Pressure ulcer (bilateral heel with necrotic eschar and sacral area stage III ) Neurological: Normal speech, Normal tone, Normal affect Lymphatics: No axilla or inguinal lymphadenopathy - Studies Laboratory Data (last 24 hrs) 10/15/17 18:39: PT 19.4 H, INR 1.64, APTT 29.4 10/15/17 18:39: WBC 19.3 H, Hgb 9.6 L, Hct 31.4 L, Plt Count 222 10/15/17 18:39: B-Natriuretic Peptide 314 H 10/15/17 18:39: Sodium 136, Potassium 5.1 H, BUN 34 H, Creatinine 4.43 H, Glucose 87, Magnesium 2.0 Assessment and Plan - Problems (Diagnosis) (1) Sepsis Current Visit: Yes Status: Acute Qualifiers: Sepsis type: sepsis due to unspecified organism Qualified Code(s): A41.9 - Sepsis, unspecified organism (2) Pressure ulcer Current Visit: Yes Status: Acute Qualifiers: Pressure ulcer location: sacral region Pressure ulcer stage: stage 3 Qualified Code(s): L89.153 - Pressure ulcer of sacral region, stage 3 (3) Syncope Current Visit: No Status: Acute Qualifiers: Syncope type: unspecified Qualified Code(s): R55 - Syncope and collapse (4) ESRD on hemodialysis Onset Date: 07/12/17 Current Visit: No Status: Chronic (5) Pacemaker Current Visit: No Status: Chronic - Plan The patient will be admitted to the hospital due to syncope in context of sepsis , likely secondary to pressure ulcer infection. Blood cultures in process, will order empiric treatment with Vancomycin and Zosyn. Will hold Coumadin, and start heparin drip for history of acute left leg DVT due to potential surgical debridement of his pressure ulcers. Consult Dr Alonso and wound care team. Will order venous doppler to evaluate status of DVT. - Advance Directives Does patient have a Living Will: No Does patient have a Durable POA for Healthcare: No - Code Status/Comfort Care Code Status Assessed: Yes Code Status: Full Code
[2017-10-15] MEDS ORDERED: VANCOMYCIN 1 GM/250 ML BAG ONE (21:26)
[2017-10-15] MEDS ORDERED: VANCOMYCIN 1 GM in NA CHLORIDE 0.9% 500 ML IVPB ONE (23:25)
[2017-10-15] MEDS ORDERED: ONDANSETRON 4 MG/2 ML VIAL IV PRN (23:25)
[2017-10-15] MEDS ORDERED: HEPARIN/D5W 25,000 UNIT/500 ML BAG IV SCH (23:25)
[2017-10-16] MEDS ORDERED: PIPER/TAZO/NS 2.25gm 2.25 GM/50 ML BAG IVPB SCH (01:00)
[2017-10-16] MEDS: NA CHLORIDE 0.9% 1,000 ML IV SCH ×2 (01:16→10:41)
[2017-10-16] MEDS ORDERED: PIPER/TAZO/NS 2.25gm 2.25 GM/50 ML BAG ONE (01:35)
--- NOTE | 2017-10-16 06:22 | EKG ---
Test Date: 2017-10-15 Test Time: 16:16:00 Data Systems Analyst: MICHELLE MEASUREMENT RESULTS: Intervals: Rate: 121 [place]: QRSD: 158 QT: 382 QTc: 542 [place]: P: [place]: QRS: 224 T: 44 INTERPRETIVE STATEMENTS: Atrial-sensed ventricular-paced rhythm tracking sinus tachycardia with premature atrial complexes Abnormal ECG Compared to ECG 09/07/2017 20:07:58 Ventricular premature complex(es) no longer present The heart rate has increased by 51 bpm Electronically Signed On 10-16-17 06:22:08 CDT by Luis Thornton
[2017-10-16] MEDS: PIPER/TAZO/NS 2.25gm 2.25 GM/50 ML BAG IVPB SCH ×2 (10:41→18:35)
--- NOTE | 2017-10-16 12:22 | RAD REPORT ---
EXAM DESCRIPTION: VAS - Extrem Venous W Compress Maurilio - 10/16/2017 11:05 am CLINICAL HISTORY: Leg pain and swelling, history of DVT COMPARISON: No comparison report or imaging available. The patient apparently has known DVT TECHNIQUE: Real-time sonographic evaluation of the bilateral lower extremity deep venous systems was performed. FINDINGS: Thrombus is present filling the bilateral lower extremity deep venous system involving com mon femoral, femoral and popliteal veins. Thrombus is relatively echogenic indicating subacute to chr onic age. No DVT confirm [id number]. Patient has prior imaging is not available to establish whet her there has been any resolution or progression of the deep venous thrombosis. Findings telephoned to the referring physician 11:58 a.m.. 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
--- NOTE | 2017-10-16 13:33 | CON ---
Date of Consultation: 10/16/2017 Reason For Consultation: Sacral decubitus and heel decubitus. History Of Present Illness: The patient is an 87-year-old gentleman with multiple medical problems, resident of a snf, who was admitted last week at [facility] due to syncopal episode. He was diagnosed with acute onset of a DVT. He was hypertensive in the snf and had anothe r syncopal episode. He came in with leukocytosis and elevated procalcitonin. He had some decubitus on his sacral area and both heel, and I was asked to evaluate the patient. He is awake, alert, in no acute distress. No sore throat, runny nose, cough, headaches, or dizziness. No chest pain. No fev er or chills. No purulent discharge from any of the ulcers. Review of Systems: Otherwise unremarkable. Past Medical History: Significant for hypertension, anemia, end-stage renal disease, CHF, history of prostate cancer, DVT, gout. Past Surgical History: Pacemaker and dialysis catheter placement. Allergies: NO ALLERGIES. Social History: Does not smoke or drink. Family History: Noncontributory. Physical Examination: Vital Signs: Stable. He is afebrile. General: He is awake, alert, and oriented x3. Head and Neck: Cranial nerves 2 through 12 grossly within normal limits. No neck masses. No JVD. Throat clear. Neck is supple. Chest: Clear. Heart: S1, S2. Abdomen: Soft. Extremities: Diminished dorsalis pedis and posterior tibial pulses. On both heels, the patient has a necrotic eschar, but there is no surrounding erythema, warmth, edema, or fluctuance at this time an d there is a small blister on the right heel and the left heel has a necrotic eschar approximately 4 cm in diameter. On the sacrum, the patient has stage 2-3 sacral decubitus. The total area is 10 x 1 5 cm, but basically partial thickness to full thickness, does not appear to involve the subcutaneous space. There is no surrounding erythema, warmth, and edema. Laboratory Data: White count was 19.3. Today's lab is pending. He does have a left shift. INR is 1.64. Chemistry reviewed. Procalcitonin is 2.40. Assessment: An 87-year-old gentleman with multiple medical problems with leukocytosis. At this time , I do not feel that the sacral decubitus and heel decubitus are the source of his sepsis. He has mu ltiple other sources that need to be examined first; lungs, urine. He does have a dialysis catheter that could be the source. Once that has determined, we will make the appropriate recommendations. A s far as the wounds are concern, nutritional optimization, vitamins, offloading air mattress, collage nase dressing, padding for the heels and offloading the heels. Plan of care discussed in detail with Dr. Campos. LUZ ELENA/ASHLEY Voice ID: [id number] Report ID: [id number]
[2017-10-16] MEDS ORDERED: CODEINE 30MG/APAP 300MG TAB PO PRN (13:35)
[2017-10-16] MEDS ORDERED: BENZONATATE 100 MG CAP PO PRN (13:35)
[2017-10-16 13:49] LABS: Absolute Lymphocytes (CBC) 0.7 K/uL (0.7-4.9); Absolute Monocytes 1.2 K/uL (0.1-1.3); Absolute Neutrophil 8.4 K/uL (1.8-8.0); Basophils % 0.5 % (0-1.3); Eosinophils % 1.6 % (0-4.4); Hematocrit 27.1 % (39.6-49.0); Lymphocytes % 6.8 % (15.3-44.8); MCH 27.9 pg (27.0-35.0); MCV 90.9 fL (80-100); MPV 7.9 fL (7.6-11.3); Monocytes % 11.1 % (3.3-12.3); Protime INR 1.72; RBC Red Blood Cell Count 2.98 M/uL (4.33-5.43)
[2017-10-16 13:58] LABS: Potassium 4.8 mEq/L (3.6-5.0)
[2017-10-16] MEDS ORDERED: HOME MED 1 EA UNK (Midodrine Hcl [Midodrine Hcl] 10 MG) PO SCH (14:00)
[2017-10-16] MEDS ORDERED: VANCOMYCIN 500 MG in NA CHLORIDE 0.9% 100 ML IVPB SCH (14:00)
[2017-10-16] MEDS: MIDODRINE HCL 5 MG TABLET PO SCH ×2 (14:42→23:04)
[2017-10-16] MEDS ORDERED: ENOXAPARIN 30 MG/0.3 ML SQ ONE (17:00)
--- NOTE | 2017-10-16 17:19 | CON ---
Date of Consultation: 10/16/2017 Additional Consulting Physician: Dr. Roberth Campos. Reason For Consultation: Elevated BUN and creatinine, hypertension, end-stage renal disease. History Of Present Illness: This is a pleasant 87-year-old gentleman, well known to me from the dialysis with significant past medical history of end- stage renal disease secondary to hypertension, nephroscleroses, on dialysis TTS at [facility], hypertension, anemia of chronic kidney disease, CHF, DVT, gout, the patient came to the hospital from the dialysis because of low blood pressure, altered mental status, presyncopal episode, on arrival found to have leukocytosis 19.2. No fever. For that reason was admitted. The patient denied any nausea, any vomiting. No fever or chills. Past Medical History: End-stage renal disease, hypertension, anemia, congestive heart failure, DVT, and gout. Family History: Positive for hypertension. Social History: Denies smoking. Denies drinking. Denies drug abuse. Home Medications: Include Tylenol, calcitriol 0.25, Plavix, Zofran, sodium bicarb, Augmentin, Nepro. Review of Systems: Head and Neck: No red eye. No ear pain. GI: No nausea. No vomiting. : No polyuria. No dysuria. No hematuria. Respiratory: No shortness of breath. Cardiovascular: No chest pain. Neuro: Generalized weakness, bedbound. Endocrine: No polydipsia. Skin: No rash. Physical Examination: General: When I saw the patient, the patient lying in bed. Vital Signs: Blood pressure 102/50, pulse of 86, afebrile. Chest: Clear to auscultation. Heart: S1, S2. Regular. Abdomen: Soft, nontender. Decubitus ulcer. Extremities: No edema. Laboratory Data: WBC 19.3, H and H 9.6/31.4. Sodium 136, potassium 5.1, bicarb 26, BUN 34, creatinine 4.4, calcium of 9, magnesium of 2. Current Medications: The patient on its include: 1. Zosyn. 2. Vancomycin. 3. Plavix. 4. Carvedilol 12.5. 5. Normal saline. 6. Metolazone. 7. Tylenol. 8. Citalopram. 9. Docusate. Assessment And Plan: 1. End-stage renal disease, normal volume, currently blood pressure on the lower side. I am going to go ahead and decrease carvedilol to 3.25 and discontinue the metolazone. We will monitor the patient. 2. Hypertension, currently blood pressure on the lower side as above. 3. End-stage renal disease, marginal hyperkalemia. We will arrange for dialysis tomorrow. 4. Anemia of chronic kidney disease. Resume Epogen. 5. Marginal hyperkalemia. We will dialyze on low potassium bath. 6. Leukocytosis, possible reaction. We will follow up with primary, follow up culture. Continue current antibiotic appropriate dose. 7. Deep venous thrombosis. Plan for PICC line and resume Coumadin. 8. Decubitus ulcer, seen by Surgery. No intervention for the time being. Case discussed with the patient's daughter by bedside, verbalized understanding. JAYLA Voice ID: [id number] Report ID: [id number] ANAND
--- NOTE | 2017-10-16 18:10 | PN ---
Date of Progress Note: 10/16/2017 Subjective: The patient is seen and examined. Chart reviewed and case discussed with RN and Dr. Ric more and Dr. Almaraz. The patient's daughter at the bedside. Treatment plan explained. All question s answered. The patient does report mild pain in his heel from the ulceration, otherwise doing well. Review of Systems: Negative except as above. Medications: Reviewed. Physical Examination: Vital Signs: Temperature 97.2, T-max is 99.1, heart rate 86, blood pressure 102/50, respirations 18, O2 100% on 3 L via nasal cannula. General: Awake, alert, oriented x3, in some mild distress. Elderly male, somewhat ill-appearing. CV: S1 and S2. Regular rate and rhythm. Peripheral pulses are present. No murmurs. Respiratory: Moving air well bilaterally. No wheezing. Gastrointestinal: Abdomen is soft, nontender, nondistended. Positive bowel sounds. Extremities: No clubbing, cyanosis, or edema. Neurologic: Nonfocal. Skin: The patient has chronic eschar on the left heel, but no erythema, warmth, or fluctuance. Smal l blister on the right heel. On the sacrum, stage III sacral decubitus ulcer, 10 x 15 cm. No fluctu ance. No erythema, warmth, or edema. Laboratory Data: Labs currently pending. Blood cultures pending. Doppler venous sonogram shows jose carlos ateral lower extremity subacute to chronic deep venous thrombosis from the groin to the knee. Assessment And Plan: An 87-year-old male with: 1.Acute unclear source, the ulcers are likely or perhaps leading because of the sepsis. We will rul e out other sources. Chest x-ray was negative. The patient is on dialysis. Unable to get urine. 2.End-stage renal disease, on hemodialysis. Appreciate Dr. Almaraz's input. We will continue dial ysis as scheduled. 3.Pressure ulcer of sacral, stage III. No surgical debridement required at this time. 4.Bilateral heel ulcers. No surgical debridement required at this time. Appreciate Dr. Alonso's inp ut. 5.Status post pacemaker. 6.Syncopal episode, likely due to sepsis and other medical condition. 7.deep venous thrombosis, bilateral lower extremities, subacute to chronic. The patient was on Coum reyna. We will continue Coumadin dose. Had been switched over to heparin for possible surgical inter vention. We will check PT, PTT, and INR. The patient also has deep venous thrombosis in the right I J and right brachial vein from records review, diagnosed at [facility] on 10/10/2017. 8.Benign prostatic hypertrophy, on Flomax. 9.Elevated troponin level, likely secondary to sepsis. We will repeat level. May need Cardiology c onsultation. Denies any chest pain. No acute ST elevation on EKG. Plan: I will reconcile home medications. Follow up on labs. /ASHLEY Voice ID: [id number] Report ID: [id number]
[2017-10-16] MEDS: WARFARIN SODIUM 5 MG TAB PO SCH (18:36)
--- NOTE | 2017-10-16 19:34 | CON ---
Reason For Consult: Abnormal troponin. History Of Present Illness: Mr. Mauro came to the hospital with signs of sepsis. [facility]. He was dialyzed at [facility]. He had a drop in blood pressure and became mentally altered. In the emergency room, he was found to be febrile. He has evidence of infection from multiple skin wounds. He has decubitus ulcers, presacral ulcers elsewhere. He has a pacemaker. Apparently, he has not had coronary bypass surgery or stents. He is not having any pain s that sound anything like angina. He has a procalcitonin level of 2.4. Troponin levels are 0.22 an d 0.14. His EKG is uninterpretable for infarction or ischemia. It is an atrial sensed ventricular p aced rhythm. Physical Examination: Vital signs: He is 5 feet 6 inches 142 pounds. General: He is sleepy, arousable. When he is awake, he is oriented to person and place. Lungs: Do not reveal crackles. Heart: Regular rate and rhythm. No significant murmur. Abdomen: Soft. Extremities: Diminished distal pulses. Impression: The patient's troponin is mildly elevated like it is. Because of renal failure and sept icemia, I doubt if this is an acute coronary syndrome. I think it might be stephens to repeat the echo. We have 1 from 3 months ago. We can compare and see if there is a new wall motion abnormality. Mr. Mauro of course would not be a good candidate at all for trying to do a coronary interventions. I w ould recommend if we really do think he has had myocardial infarction, that we just give him medical therapy for it, antiplatelet therapy, nitrates for pain, and not do a heart catheterization or consider stenting or bypass surgery. OTTONIEL/MODL Voice ID: [id number] Report ID: [id number]
[2017-10-16] MEDS ORDERED: CARVEDILOL 12.5 MG TAB PO SCH (21:00)
[2017-10-16] MEDS: DRONABINOL 2.5 MG PO SCH (21:00)
[2017-10-16] MEDS: DOCUSATE NA 100 MG CAP PO SCH (23:03)
[2017-10-16] MEDS: CARVEDILOL 3.125 MG TAB PO SCH (23:03)
[2017-10-17] MEDS: PIPER/TAZO/NS 2.25gm 2.25 GM/50 ML BAG IVPB SCH ×3 (00:44→17:34)
[2017-10-17] MEDS: NA CHLORIDE 0.9% 1,000 ML IV SCH (03:31)
[2017-10-17] MEDS ORDERED: LIDOCAINE 1% MPF 5 ML VIAL ONE (04:37)
[2017-10-17 06:34] LABS: Protime INR 2.17
[2017-10-17] MEDS: COLLAGENASE 30 GM OINTMENT TOP SCH ×2 (09:00→21:00)
[2017-10-17] MEDS ORDERED: METOLAZONE 5 MG TABLET PO SCH (09:00)
[2017-10-17] MEDS: DRONABINOL 2.5 MG PO SCH ×2 (09:00→20:28)
[2017-10-17] MEDS ORDERED: ENOXAPARIN 60 MG/0.6 ML SQ SCH (09:00)
[2017-10-17] MEDS: MIDODRINE HCL 5 MG TABLET PO SCH ×3 (09:14→20:28)
[2017-10-17] MEDS: CITALOPRAM 10 MG TABLET PO SCH (09:14)
[2017-10-17] MEDS: MIRTAZAPINE 15 MG TAB PO SCH (09:14)
[2017-10-17] MEDS: CLOPIDOGREL 75 MG TABLET PO SCH (09:14)
[2017-10-17] MEDS: DOCUSATE NA 100 MG CAP PO SCH ×2 (09:14→20:17)
[2017-10-17] MEDS: TAMSULOSIN 0.4 MG SR CAP PO SCH (09:15)
[2017-10-17] MEDS: CARVEDILOL 3.125 MG TAB PO SCH ×3 (09:15→20:27)
--- NOTE | 2017-10-17 12:40 | ECHO ---
HEIGHT: 5 ft 6 in WEIGHT: 144 lb 12.8 oz DATE OF STUDY: 10/17/[address]: Luis Thornton MD 2-DIMENSIONAL: YES M.MODE: YES DOPPLER: YES COLOR FLOW: YES TDS: NO PORTABLE: NO DEFINITY: NO BUBBLE STUDY: NO DIAGNOSIS: ABNORMAL TROPONIN CARDIAC HISTORY: CATHERIZATION: NO SURGERY: NO PROSTHETIC VALVE: NO PACEMAKER: YES MEASUREMENTS (cm) DIASTOLIC (NORMALS) SYSTOLIC (NORMALS) IVSd 1.0 (0.6-1.2) LA Diam 3.2 (1.9-4.0) LVEF 61% LVIDd 3.9 (3.5-5.7) LVIDs 2.7 (2.0-3.5) %FS 32% LVPWd 1.0 (0.6-1.2) Ao Diam 2.8 (2.0-3.7) 2 DIMENSIONAL ASSESSMENT: RIGHT ATRIUM: NORMAL LEFT ATRIUM: NORMAL RIGHT VENTRICLE: NORMAL LEFT VENTRICLE: NORMAL TRICUSPID VALVE: NORMAL MITRAL VALVE: NORMAL PULMONIC VALVE: NORMAL AORTIC VALVE: NORMAL PERICARDIAL EFFUSION: NONE AORTIC ROOT: NORMAL LEFT VENTRICULAR WALL MOTION: NORMAL. DOPPLER/COLOR FLOW: NORAML. COMMENTS: NORMAL 2D ECHO WITH DOPPLER. NO WALL MOTION ABNORMALITY. NO EFFUSION. TECHNOLOGIST: VISHAL GASCA
--- NOTE | 2017-10-17 14:17 | PN ---
Date of Progress Note: 10/17/2017 Subjective: The patient feeling much better. No nausea. No vomiting. Blood pressure has been stab ilized. Physical Examination: Vital Signs: Blood pressure 122/64, pulse of 74, afebrile. Chest: Clear to auscultation. Heart: S1, S2. Regular. Abdomen: Soft, nontender. Extremities: No edema. Laboratory Data: WBC 10.5, H and H 8.3/27.1. Sodium 135, potassium 4.8, bicarb 24, BUN 46, creatini ne 5.4, calcium 9.4. Medications: Current medications the patient on its include: 1.Zosyn. 2.Vancomycin. 3.Midodrine. 4.Flomax. 5.Lovenox. 6.Coumadin. 7.Carvedilol 3.25. 8.Citalopram. 9.Mirtazapine. Assessment And Plan: 1.End-stage renal disease, looked to me normal volume. I am going to continue the patient on dialys is. The patient due for dialysis today. We will follow up. We will discontinue IV fluid. 2.Hypertension, controlled, optimal. We will continue midodrine before dialysis. 3.Altered mental status, recovered, resolved. 4.Peptic ulcer disease, stable. 5.Presyncope. We will follow up with Cardiology and primary. The patient cleared from the Renal standpoint for discharge planning after dialysis. JAYLA Voice ID: [id number] Report ID: [id number]
--- NOTE | 2017-10-17 15:10 | PN ---
Admitted to Dr. Campos. Seen by Dr. Thornton for elevated troponin. Echocardiogram ordered today showi ng no wall motion abnormalities, no effusion. Troponin obviously secondary to renal dysfunction and sepsis. We will sign off this case. NB/MODL Voice ID: [id number] Report ID: [id number]
[2017-10-17] MEDS: EPOETIN ALFA 10,000 UNIT/ML VIAL IV SCH (15:50)
--- NOTE | 2017-10-17 16:53 | PN ---
Date of Progress Note: 10/17/2017 Subjective: The patient seen and examined, chart reviewed, and case discussed with RN. Daughters at the bedside. The patient states that he is having some pain along his back and his sacrum. Review of Systems: Negative except as above. Medications: Reviewed. Physical Examination: Vital signs: Temperature 97.1, heart rate 81, blood pressure 113/64, respirations 18, and O2 98% on 3 L via nasal cannula. General: Awake, alert, oriented x3. Some mild distress. Elderly male, ill-appearing. CV: S1, S2. Peripheral pulses present. No murmurs. Respiratory: Moving air well bilaterally Gastrointestinal: Abdomen is soft, nontender, nondistended . Positive bowel sounds. Extremities: No clubbing, cyanosis. Trace edema. Neurologic: Nonfocal. SKIN: Stage 3 sacral decubitus ulcer, bilateral heel ulcers. Laboratory Data: Currently pending. INR is 2.17. Echocardiogram, EF 61%. No wall motion abnormali ty. Assessment And Plan: An 87-year-old male with; 1.Sepsis, likely secondary to sacral ulcers or possible hemodialysis catheter, improving. We will c ontinue IV antibiotics. Follow up on culture results. No growth to date. 2.End-stage renal disease, on hemodialysis. Dr. Almaraz on board. We will continue dialysis as sc heduled. 3.Stage 3 decubitus ulcers of the sacrum. Dr. Alonso has evaluated the patient, does not recommend a ny surgical debridement at this time. We will continue with wound care. 4.Bilateral heel ulcers, offloading. 5.Status post pacemaker. 6.Syncopal episode, likely due to sepsis. 7.Elevated troponin level. Echocardiogram is normal ejection fraction. No wall motion abnormality. Appreciate Cardiology input. 8.Acute deep venous thrombosis, bilateral lower extremities, right IJ. The patient's INR now within therapeutic range. We will discontinue Lovenox. 9.Benign prostatic hypertrophy. Continue Flomax. 10.Gastrointestinal and deep venous thrombosis prophylaxis. The patient already on anticoagulation, PPI. /MODL Voice ID: [id number] Report ID: [id number]
[2017-10-17] MEDS: WARFARIN SODIUM 5 MG TAB PO SCH (17:34)
[2017-10-17] MEDS: JUVEN PACKET PO SCH (20:18)
[2017-10-17] MEDS: ENSURE CLEAR 200 ML CAN PO SCH (20:18)
[2017-10-18] MEDS: PIPER/TAZO/NS 2.25gm 2.25 GM/50 ML BAG IVPB SCH ×3 (00:14→16:18)
[2017-10-18 06:42] LABS: Absolute Lymphocytes (CBC) 0.6 K/uL (0.7-4.9); Absolute Monocytes 0.9 K/uL (0.1-1.3); Absolute Neutrophil 5.4 K/uL (1.8-8.0); Basophils % 0.9 % (0-1.3); Eosinophils % 1.2 % (0-4.4); Hematocrit 26.6 % (39.6-49.0); Lymphocytes % 8.2 % (15.3-44.8); MCH 28.7 pg (27.0-35.0); MCV 90.1 fL (80-100); MPV 7.6 fL (7.6-11.3); Monocytes % 13.4 % (3.3-12.3); RBC Red Blood Cell Count 2.95 M/uL (4.33-5.43)
[2017-10-18 06:43] LABS: Protime INR 4.28
[2017-10-18 07:00] LABS: Potassium 3.7 mEq/L (3.6-5.0)
[2017-10-18] MEDS ORDERED: POTASSIUM 25 MEQ EFFERV TAB PO ONE (07:17)
[2017-10-18] MEDS: CITALOPRAM 10 MG TABLET PO SCH (08:52)
[2017-10-18] MEDS: MIDODRINE HCL 5 MG TABLET PO SCH ×3 (08:52→20:44)
[2017-10-18] MEDS: CLOPIDOGREL 75 MG TABLET PO SCH (08:52)
[2017-10-18] MEDS: CARVEDILOL 3.125 MG TAB PO SCH ×2 (08:52→20:45)
[2017-10-18] MEDS: DOCUSATE NA 100 MG CAP PO SCH ×2 (08:52→20:44)
[2017-10-18] MEDS: MIRTAZAPINE 15 MG TAB PO SCH (08:52)
[2017-10-18] MEDS: TAMSULOSIN 0.4 MG SR CAP PO SCH (08:52)
[2017-10-18] MEDS: ENSURE CLEAR 200 ML CAN PO SCH ×2 (08:53→20:44)
[2017-10-18] MEDS: JUVEN PACKET PO SCH ×2 (08:53→20:44)
[2017-10-18] MEDS: DRONABINOL 2.5 MG PO SCH ×2 (08:53→20:46)
[2017-10-18] MEDS: COLLAGENASE 30 GM OINTMENT TOP SCH ×2 (08:54→23:00)
[2017-10-18] MEDS ORDERED: VANCOMYCIN 500 MG in NA CHLORIDE 0.9% 100 ML IVPB SCH (10:45)
--- NOTE | 2017-10-18 21:02 | P.PN ---
Subjective Date of Service: 10/18/17 Primary Care Provider: Pt resident of [facility] Chief Complaint: sepsis Subjective: Doing well (although not ambulatory or able to assist with transfers ) Review of Systems Eyes: Unremarkable ENT: Unremarkable Respiratory: Unremarkable Cardiovascular: Unremarkable Gastrointestinal: Unremarkable Genitourinary: Unremarkable Musculoskeletal: Unremarkable Integumentary: Other (pressure sore to bilateral heels and sacral area) Neurological: Weakness Lymphatics: As per HPI Physical Examination - Vital Signs Temperature: 97.0 F Blood Pressure: 144/66 Pulse: 81 Respirations: 16 Pulse Ox (%): 98 - Physical Exam General: Alert, In no apparent distress, Oriented x3 HEENT: Atraumatic, Normocephalic Neck: Supple Respiratory: Clear to auscultation bilaterally, Normal air movement Cardiovascular: Edema Capillary refill: <2 Seconds Gastrointestinal: Normal bowel sounds Musculoskeletal: No clubbing, Other (heel decub - eschar bilarally) Integumentary: Skin breakdown, Pressure ulcer, Other (sacral, appears stage 3, no noted s/s infection. ) Neurological: Other (functional paralysis 2ndary to weakness and deconditioning) , Abnormal strength Urinary: Dialysis catheter External genitalia: Deferred Rectal: Other (pt has sacral decub, does not like to be turned, decub with healthy appearing pink tissue, no foul odor, dc, or bleeding) Assessment & Plan - Problems (Diagnosis) (1) Supratherapeutic INR Current Visit: Yes Status: Acute
[2017-10-19] MEDS: PIPER/TAZO/NS 2.25gm 2.25 GM/50 ML BAG IVPB SCH ×2 (01:01→09:02)
[2017-10-19] MEDS: ACETAMINOPHEN 500 MG TAB PO PRN ×2 (01:08→22:25)
--- NOTE | 2017-10-19 02:51 | PN ---
Date of Progress Note: 10/18/2017 Chief Complaint: End-stage renal disease, on dialysis. The patient had dialysis done yesterday. Electrolytes are in acceptable control and volemia is in good control. Review of Systems: The patient denies complaints. Physical Examination: Lungs: Few crackles at bases. Heart: S1, S2. Abdomen: Soft, benign, nontender. Extremities: No edema. Laboratory Work: WBC 10.5, hemoglobin 9.3, hematocrit is 27.1. Sodium 135, potassium 4.8, bicarbonate 24, BUN 46, creatinine 5.4, calcium 9.4. Impression And Plan: 1. End-stage renal disease. The patient will have dialysis tomorrow. 2. Hypertension, controlled. The patient will require midodrine to prevent intradialytic hypotension and midodrine will be ordered with dialysis. 3. Altered mental status. The patient is undergoing workup . 4. Presyncope. The patient will follow with Cardiology and medication adjustment as per Cardiology. JELANI/ASHLEY Voice ID: [id number] Report ID: [id number] MTDD
[2017-10-19 06:05] LABS: Protime INR 3.88
[2017-10-19 06:25] LABS: Potassium 3.1 mEq/L (3.6-5.0)
[2017-10-19] MEDS ORDERED: POTASSIUM 25 MEQ EFFERV TAB PO ONE (06:55)
[2017-10-19] MEDS: DOCUSATE NA 100 MG CAP PO SCH ×2 (09:00→20:03)
[2017-10-19] MEDS: COLLAGENASE 30 GM OINTMENT TOP SCH (09:00)
[2017-10-19] MEDS: DRONABINOL 2.5 MG PO SCH ×2 (09:00→20:02)
[2017-10-19] MEDS: MIDODRINE HCL 5 MG TABLET PO SCH ×3 (09:02→21:25)
[2017-10-19] MEDS: TAMSULOSIN 0.4 MG SR CAP PO SCH (09:03)
[2017-10-19] MEDS: MIRTAZAPINE 15 MG TAB PO SCH (09:03)
[2017-10-19] MEDS: CLOPIDOGREL 75 MG TABLET PO SCH (09:03)
[2017-10-19] MEDS: CITALOPRAM 10 MG TABLET PO SCH (09:03)
[2017-10-19] MEDS: CARVEDILOL 3.125 MG TAB PO SCH ×2 (09:03→21:25)
[2017-10-19] MEDS: JUVEN PACKET PO SCH ×2 (09:04→21:33)
[2017-10-19] MEDS: ENSURE CLEAR 200 ML CAN PO SCH (09:04)
[2017-10-19] MEDS: THIAMINE 200 MG/2 ML INJ IVP SCH (09:07)
--- NOTE | 2017-10-19 12:17 | P.PN ---
Subjective Date of Service: 10/19/17 Primary Care Provider: Pt resident of [facility] Chief Complaint: DVT Subjective: Improving (Patient is doing well no new complaints eating and drinking he has decubitus ulcers blood cultures contaminant. Patient is on dialysis) Review of Systems is unable to be obtained General: Weakness Physical Examination - Vital Signs Temperature: 97.3 F Blood Pressure: 150/77 Pulse: 77 Respirations: 16 Pulse Ox (%): 96 - Physical Exam General: Alert, Oriented x3 HEENT: Atraumatic Neck: Supple Respiratory: Clear to auscultation bilaterally Cardiovascular: Normal S1 S2, Edema Assessment & Plan - Problems (Diagnosis) (1) DVT (deep venous thrombosis) Current Visit: Yes Status: Acute Plan: Patient is 87 years of age admitted with acute DVT of lower extremities patient' s INR is supratherapeutic will continue to monitor change to p.o. well echoes seen by general surgery there is no history of coronary artery disease Dc Plavix is high risk for bleeding start Eliquis when is INR is 2 he lied to be anticoagulated with Eliquis 10 mg twice a day for a total of 7 days and then change to Eliquis 5 b.i.d. Qualifiers: DVT location: lower extremity (2) Pressure ulcer Current Visit: Yes Status: Acute Plan: Patient has decubitus ulcers as vaginal surgery no evidence of active infection Dc all antibiotics patient's white count is declined Qualifiers: Pressure ulcer location: ankle Pressure ulcer stage: stage 3 Laterality: right Qualified Code(s): L89.513 - Pressure ulcer of right ankle, stage 3
[2017-10-19] MEDS: EPOETIN ALFA 10,000 UNIT/ML VIAL IV SCH (17:27)
[2017-10-19] MEDS: NEPRO SHAKE 237 ML CAN PO SCH ×2 (19:00→21:32)
--- NOTE | 2017-10-19 23:04 | PN ---
Date of Progress Note: 10/19/2017 Chief Complaint: End stage renal disease, on dialysis. Subjective: The patient is scheduled to have dialysis today. Denies fever, chills. He has poor p.o. intake. He is on p.o. protein supplements, developed some loose bowel movements secondary to Ensure formula. Review of Systems: Denies chest pain or palpitation. Denies nausea or vomiting. Physical Examination: Lungs: Clear to auscultation bilaterally. Heart: S1, S2. Abdomen: Soft, benign, nontender. Extremities: No edema. Laboratory Data: Hemoglobin 8.5, WBC 7.1, platelet count 218,000. Sodium 143, potassium 3.1, chloride 104, CO2 of 27. BUN 37, creatinine 5.25, calcium 8.9. Impression And Plan: 1. End-stage renal disease. Dialysis is ordered today. 2. Hypokalemia, replacement with dialysis. 3. Anemia in chronic kidney disease, continue VISH. 4. Hypoalbuminemia. Continue p.o. protein supplements. The patient will take Nepro twice a day. 5. Renal osteodystrophy. Monitor phosphorus level. Adjust treatment accordingly. JELANI/ASHLEY Voice ID: [id number] Report ID: [id number] ANAND
[2017-10-20 06:01] LABS: Protime INR 3.08
[2017-10-20] MEDS: DRONABINOL 2.5 MG PO SCH ×2 (09:00→21:00)
[2017-10-20] MEDS: MIDODRINE HCL 5 MG TABLET PO SCH (09:00)
[2017-10-20] MEDS: THIAMINE 200 MG/2 ML INJ IVP SCH (09:00)
--- NOTE | 2017-10-20 09:59 | P.PN ---
Subjective Date of Service: 10/20/17 Primary Care Provider: Pt resident of [facility] Chief Complaint: DVT Subjective: Improving (Doing well no complaints poor appetite) Review of Systems General: Weakness Physical Examination - Vital Signs Temperature: 98.6 F Blood Pressure: 151/80 Pulse: 97 Respirations: 18 Pulse Ox (%): 100 - Physical Exam General: Alert, Oriented x3, Cooperative Neck: Supple Respiratory: Clear to auscultation bilaterally Cardiovascular: Regular rate/rhythm Gastrointestinal: Normal bowel sounds Assessment & Plan - Problems (Diagnosis) (1) DVT (deep venous thrombosis) Current Visit: Yes Status: Acute Plan: Patient has DVT INR is still elevated possible discharge home once his INR has dropped down to 2 start on Eliquis 5 mg twice a day for indefinite. Stop midodrine and thiamine Qualifiers: DVT location: lower extremity (2) Pressure ulcer Current Visit: Yes Status: Acute Plan: Patient has decubitus ulcers as vaginal surgery no evidence of active infection Dc all antibiotics patient's white count is declined Qualifiers: Pressure ulcer location: ankle Pressure ulcer stage: stage 3 Laterality: right Qualified Code(s): L89.513 - Pressure ulcer of right ankle, stage 3
[2017-10-20] MEDS: TAMSULOSIN 0.4 MG SR CAP PO SCH (10:21)
[2017-10-20] MEDS: DOCUSATE NA 100 MG CAP PO SCH ×2 (10:21→21:39)
[2017-10-20] MEDS: CITALOPRAM 10 MG TABLET PO SCH (10:22)
[2017-10-20] MEDS: CARVEDILOL 3.125 MG TAB PO SCH ×2 (10:22→21:40)
[2017-10-20] MEDS: MIRTAZAPINE 15 MG TAB PO SCH (10:22)
[2017-10-20] MEDS: FOLIC ACID 1 MG TABLET PO SCH (10:23)
[2017-10-20] MEDS: JUVEN PACKET PO SCH ×2 (10:23→21:39)
[2017-10-20] MEDS: NEPRO SHAKE 237 ML CAN PO SCH ×2 (10:23→21:39)
[2017-10-20] MEDS: COLLAGENASE 30 GM OINTMENT TOP SCH (18:26)
[2017-10-20] MEDS: ACETAMINOPHEN 500 MG TAB PO PRN (19:51)
--- NOTE | 2017-10-21 00:56 | PN ---
Date of Progress Note: 10/20/2017 Chief Complaint: End-stage renal disease, on dialysis. Subjective: The patient received dialysis yesterday. The patient has multiple medical problems. He is bedbound. He is complaining of poor p.o. intake. He developed diarrhea due to protein supplements, and diarrhea has resolved. Review of Systems: Denies fever or chills. Physical Examination: Lungs: Clear to auscultation bilaterally. Heart: S1 and S2. Abdomen: Soft and benign. Extremities: No edema. Laboratory Data: Sodium 143, potassium 3.1, chloride 104, CO2 of 27, BUN 37, creatinine 5.25, and calcium 8.9. Impression And Plan: 1. End-stage renal disease. Dialysis was done yesterday with ultrafiltration. Monitor electrolytes closely. 2. Hypokalemia. The patient received dialysis with a special potassium bath and potassium replacement with 4 K bath was used. Monitor electrolytes, renal panel and electrolytes. 3. Hypoalbuminemia. The patient may need TPN, although at this point, he does not have a central line. The patient has been on anticoagulation and central line in this particular patient is a high risk of infection and bleeding. The patient will resume p.o. intake as tolerated. Continue p.o. protein supplements. 4. Renal osteodystrophy. Monitor phosphorus level and adjust treatment accordingly. JELANI/ASHLEY Voice ID: [id number] Report ID: [id number] MTDD
[2017-10-21 05:14] LABS: Protime INR 2.82
[2017-10-21 06:43] VITALS: BMI 22.5
[2017-10-21] MEDS: DRONABINOL 2.5 MG PO SCH (09:00)
[2017-10-21] MEDS: CARVEDILOL 3.125 MG TAB PO SCH (09:00)
[2017-10-21] MEDS: MIRTAZAPINE 15 MG TAB PO SCH (09:23)
[2017-10-21] MEDS: DOCUSATE NA 100 MG CAP PO SCH (09:23)
[2017-10-21] MEDS: FOLIC ACID 1 MG TABLET PO SCH (09:23)
[2017-10-21] MEDS: NEPRO SHAKE 237 ML CAN PO SCH (09:24)
[2017-10-21] MEDS: TAMSULOSIN 0.4 MG SR CAP PO SCH (09:24)
[2017-10-21] MEDS: CITALOPRAM 10 MG TABLET PO SCH (09:24)
[2017-10-21] MEDS: JUVEN PACKET PO SCH (09:24)
[2017-10-21] MEDS: COLLAGENASE 30 GM OINTMENT TOP SCH (09:25)
[2017-10-21 12:00] VITALS: O2SAT 97
[2017-10-21 12:11] VITALS: BP 128/67; TEMP 97.4
--- NOTE | 2017-10-21 12:22 | P.DS ---
Admission Date: 10/15/17 Discharge Date: 10/21/17 Primary Care Provider: Pt resident of [facility] Disposition: TRANSFER TO SKILLED NURSING Discharge Condition: GOOD Reason for Admission: DVT Consultations: Nephrology-Dr. Perez/Dr. Almaraz Surgery-Dr. Alonso Cardiology-Dr. Thornton - Problems (1) Depression Current Visit: Yes Status: Chronic Qualifiers: Depression Type: unspecified Qualified Code(s): F32.9 - Major depressive disorder, single episode, unspecified (2) DVT (deep venous thrombosis) Current Visit: Yes Status: Acute Qualifiers: DVT location: lower extremity Chronicity: acute Laterality: bilateral (3) Pressure ulcer Current Visit: Yes Status: Chronic Qualifiers: Pressure ulcer location: ankle Pressure ulcer stage: stage 3 Laterality: right Qualified Code(s): L89.513 - Pressure ulcer of right ankle, stage 3 (4) Syncope Onset Date: 10/16/17 Current Visit: Yes Status: Acute Qualifiers: Syncope type: unspecified Qualified Code(s): R55 - Syncope and collapse (5) Pacemaker Onset Date: 10/16/17 Current Visit: Yes Status: Chronic (6) Anemia Current Visit: No Status: Chronic Qualifiers: Anemia type: due to chronic kidney disease Chronic kidney disease stage: on chronic dialysis Qualified Code(s): N18.6 - End stage renal disease; D63.1 - Anemia in chronic kidney disease; Z99.2 - Dependence on renal dialysis (7) BPH (benign prostatic hyperplasia) Current Visit: No Status: Chronic Qualifiers: Lower urinary tract symptom presence: unspecified whether lower urinary tract symptoms present Qualified Code(s): N40.0 - Benign prostatic hyperplasia without lower urinary tract symptoms (8) ESRD on hemodialysis Onset Date: 07/12/17 Current Visit: No Status: Chronic (9) HTN (hypertension) Onset Date: 07/12/17 Current Visit: No Status: Chronic Qualifiers: Hypertension type: essential hypertension Qualified Code(s): I10 - Essential (primary) hypertension Brief History of Present Illness: 87-year-old male presented emergency room for fatigue. Patient recently evaluated at [facility] for syncope. Patient found to have bilateral DVT. The patient was admitted for further evaluation. Patient with history of hypertension, benign prostatic hyperplasia, end-stage renal disease on dialysis. Hospital Course: During the course of his stay patient was evaluated. Infection was suspected. This was ruled out. Surgery was consulted to address multiple ulcers including the heels bilaterally and sacral ulcer stage IV. Blood cultures were negative. Patient did not have any fever. Patient did well during his stay. He was determined that the fatigue was related to his bilateral DVT. Patient previously on Coumadin. During the course of his stay Coumadin was discontinued. At discharge patient will continue with Eliquis. Recommendation is to monitor lab-BMP and CBC. [facility]. Patient was evaluated by cardiology. Patient does not have Coronary artery disease. Therefore Plavix will be discontinued at discharge. Patient too high risk to continue with Plavix while on Eliquis. During the course of his stay patient was seen and evaluated by nephrology. Patient continue with dialysis during his stay. He will continue with dialysis as an outpatient. Patient receives dialysis Tuesdays, and Saturdays. Patient with hypertension. Carvedilol was decreased during the course of his stay. At discharge patient will continue with carvedilol 3.125 mg twice daily. Recommendation is to maintain blood pressures less 150/80. Further adjustment can be done at the [facility]. Patient has BPH. Patient continue with Flomax 0.8 mg daily. Patient has depression. Patient continue with Celexa 10 mg daily. Patient will continue with wound care for bilateral heel ulcers and sacral decubitus ulcer. Patient can follow up at [facility] with surgery. Vital Signs/Physical Exam: Temp Pulse Resp BP Pulse Ox 97.4 F 88 18 128/67 94 10/21/17 12:00 10/21/17 12:00 10/21/17 12:00 10/21/17 12:00 10/21/17 12:00 General: Alert, In no apparent distress HEENT: Atraumatic Neck: Supple Respiratory: Clear to auscultation bilaterally, Normal air movement Cardiovascular: Normal pulses, Regular rate/rhythm Gastrointestinal: Normal bowel sounds, Soft and benign, Non-distended Integumentary: No erythema, No warmth, No cyanosis Laboratory Data at Discharge: WBC 7.1 K/uL (4.3-10.9) D 10/18/17 06:25 Hgb 8.5 g/dL (13.6-17.9) L 10/18/17 06:25 Hct 26.6 % (39.6-49.0) L 10/18/17 06:25 Plt Count 218 K/uL (152-406) 10/18/17 06:25 PT 33.6 SECONDS (9.5-12.5) H 10/21/17 04:45 INR 2.82 10/21/17 04:45 APTT 30.8 SECONDS (24.3-36.9) 10/16/17 13:31 Sodium 144 mEq/L (135-145) 10/20/17 05:00 Potassium 4.0 mEq/L (3.6-5.0) 10/20/17 05:00 BUN 20 mg/dL (6-20) 10/20/17 05:00 Creatinine 3.58 mg/dL (0.61-1.24) H D 10/20/17 05:00 Glucose 86 mg/dL (65-120) 10/20/17 05:00 Magnesium 2.0 mg/dL (1.8-2.5) 10/18/17 06:25 Troponin I 0.22 ng/mL (<0.03) H 10/16/17 13:31 B-Natriuretic Peptide 314 pg/ml (<=100) H 10/15/17 18:39 Home Medications: Acetaminophen 2 tab PO Q4H PRN 10/16/17 Benzonatate [Tessalon Perle*] 100 mg PO TID PRN 10/16/17 Cholecalciferol (Vitamin D3) [Vitamin D3] 5,000 unit PO DAILY 10/16/17 Codeine/APAP [Tylenol #3*] 1 tab PO Q4HP PRN 10/16/17 Dronabinol [Marinol] 2.5 mg PO BID 10/16/17 Folic Acid/Vit Bcomp,C [Fidelia-Valentino Tablet] 0.8 mg PO DAILY 10/16/17 Midodrine HCl 10 mg PO TID 10/16/17 Mirtazapine [Remeron*] 15 mg PO DAILY 10/16/17 Ondansetron HCl 4 mg PO Q6HP PRN 10/16/17 Tamsulosin HCl 2 cap PO DAILY 10/16/17 Apixaban [Eliquis] 5 mg PO BID #60 tablet 10/21/17 Carvedilol [Coreg*] 3.125 mg PO BID #60 tab 10/21/17 Collagenase [Santyl Ointment*] 1 appl TOP DAILY #1 tube 10/21/17 Multivitamin with Iron [Daily Multivitamin with Iron] 1 each PO DAILY #90 tablet 10/21/17 Nepro Shake [Nepro*] 200 ml PO BID #60 can 10/21/17 New Medications: Apixaban [Eliquis] 5 mg PO BID #60 tablet Carvedilol [Coreg*] 3.125 mg PO BID #60 tab Collagenase [Santyl Ointment*] 1 appl TOP DAILY #1 tube Multivitamin with Iron [Daily Multivitamin with Iron] 1 each PO DAILY #90 tablet Nepro Shake [Nepro*] 200 ml PO BID #60 can Patient Discharge Instructions: 1. [facility] will be [facility] to [facility] his care. 2. Patient has bilateral DVT. Medications have been adjusted. Patient will no longer take Coumadin. At discharge patient will continue with Eliquis 5 mg 1 pill twice daily. Recommendation is to monitor CBC closely. Recommendation is to recheck CBC, BMP in 1 week to monitor his progress. Patient can follow up with [facility] to further address. 3. Patient does not have CAD. Patient evaluated by Cardiology. Therefore Plavix will be discontinued. Patient high risk to take Plavix since he is on Eliquis. 4. Patient has hypertension. Medications have been adjusted. At discharge she will continue with carvedilol 3.125 mg 1 pill twice daily. Recommendation is to maintain blood pressures less 150/80. Further adjustment can be done by the [facility] physician. 5. BPH. Patient continue with Flomax 0.8 mg daily. 6. Patient has end-stage renal disease. Patient will continue with dialysis an outpatient. Patient will continue with dialysis every Tuesdays, and Saturdays. Patient will follow up with nephrology in 1-2 weeks to follow up this hospitalization. 7. Patient has depression. Patient will continue with Celexa 10 mg daily. 8. Patient has anemia of chronic disease be monitored closely through dialysis. Recommendation to recheck CBC in 1 week to monitor his progress. At discharge patient will continue with multi vitamin with iron daily. Diet: Renal Activity: Fall precautions Time spent managing pt's care (in minutes): 55
[2017-10-21] MEDS: EPOETIN ALFA 10,000 UNIT/ML VIAL IV SCH (15:30)
--- NOTE | 2017-10-22 03:18 | PN ---
Date of Progress Note: 10/21/2017 Chief Complaint: End-stage renal disease on dialysis. History Of Present Illness: The patient has been treated with dialysis 3 times per week. He is scheduled to have dialysis today to obtain metabolic clearance. The patient was found to have hypokalemia and dialyzate potassium level was adjusted to prevent hypokalemia. Potassium level was 3.1 and the patient received dialysis with 4 potassium dialysate. Review of Systems: Denies fever, chills, nausea, vomiting p.o. intake is improving. Physical Examination: Lungs: Clear to auscultation bilaterally. Heart: S1-S2. Abdomen: Soft, benign. Extremities: No edema. Impression And Plan: 1. End-stage renal disease. Dialysis is scheduled today with ultrafiltration. Monitor electrolytes closely. 2. Hypokalemia p.o. intake is improving. Continue renal diet. The patient will have dialysis with potassium 4 bath. 3. Hypoalbuminemia. The patient is advancing with p.o. intake. He is tolerating p.o. protein supplements. Continue current treatment. 4. Hyperphosphatemia, renal osteodystrophy. Monitor phosphorus level. Adjust treatment accordingly. JELANI/MODL Voice ID: [id number] Report ID: [id number] ANAND
[2017-10-22 20:21] LABS: HBsAG Nonreactive (Nonreactive)
== END 2017-10-21 19:27 | DRG 299 ==
LOC: ER 16:10 → ERHOLD 20:20 → 4TH 22:22
PROVIDERS: ADMIT Internal Medicine; ATTEND Family Medicine
PROC: 5A1D70Z Performance of Urinary Filtration, Intermittent, Less than 6 Hours Per Day (ICD-10-PCS; principal; 2017-10-17)
PROC: 5A1D70Z Performance of Urinary Filtration, Intermittent, Less than 6 Hours Per Day (ICD-10-PCS; 2017-10-19)
PROC: 5A1D70Z Performance of Urinary Filtration, Intermittent, Less than 6 Hours Per Day (ICD-10-PCS; 2017-10-21)
DX: I82.403 Acute embolism and thrombosis of unspecified deep veins of lower extremity, bilateral (principal); L89.154 Pressure ulcer of sacral region, stage 4; L89.513 Pressure ulcer of right ankle, stage 3; N18.6 End stage renal disease; I13.2 Hypertensive heart and chronic kidney disease with heart failure and with stage 5 chronic kidney disease, or end stage renal disease; L89.629 Pressure ulcer of left heel, unspecified stage; L89.619 Pressure ulcer of right heel, unspecified stage; E87.6 Hypokalemia; M10.9 Gout, unspecified; R55 Syncope and collapse; I50.9 Heart failure, unspecified; E87.5 Hyperkalemia; K27.9 Peptic ulcer, site unspecified, unspecified as acute or chronic, without hemorrhage or perforation; N25.0 Renal osteodystrophy; N40.0 Benign prostatic hyperplasia without lower urinary tract symptoms; D63.1 Anemia in chronic kidney disease; Z99.2 Dependence on renal dialysis; Z95.0 Presence of cardiac pacemaker
CPT/HCPCS: 36415; 70450; 71045; 80048; 82010; 82962; 83735; 83880; 84145; 84484; 85025; 85610; 85730; 86317; 86704; 86706; 87040; 87205; 87340; 90935; 93005; 93306; 93970; 99285; J1650; J2405; J2543; J3370; J3411; J3590; J7030; Q4081